=== PATIENT | female | born 1950 | race Caucasian/White ===

== ENCOUNTER → 2017-12-21 | Outpatient (CLI) | payer MEDICARE ==
--- NOTE | 2017-12-21 10:47 | XR ---
EXAMINATION TYPE: XR chest 2V DATE OF EXAM: 12/21/2017 HISTORY: ACUTE BRONCHOSPASM. REFERENCE: Previous study dated 01/26/2015. FINDINGS: Lung volumes are prominent. Heart size is normal. Pleural spaces are clear. There are subtl e interstitial changes which appear chronic. IMPRESSION: 1. COPD. 2. 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
== END | disposition home or self-care (01) ==
LOC: RADXRMAIN 09:56
PROVIDERS: ATTEND Physician Assistant
DX: J44.9 Chronic obstructive pulmonary disease, unspecified (principal)
CPT/HCPCS: 71046

== ENCOUNTER 2024-04-25 20:49 | Inpatient (IN) | payer MEDICARE, OTHER ==
--- NOTE | 2024-04-25 20:56 | ED ---
SOB HPI - History of Present Illness MD Complaint: shortness of breath Onset/Timin -: days(s) Consistency: constant Improves With: nothing Worsens With: exertion Associated Symptoms: cough Treatments Prior to Arrival: none - Related Data Home Oxygen Therapy: No <Preston Mar - Last Filed: 04/26/24 07:14> <Evaristo Morton - Last Filed: 05/02/24 22:08> - General Stated Complaint: [place] Time Seen by Provider: 04/25/24 20:55 - History of Present Illness Initial Comments: Patient is 73-year-old woman who presents to have evaluation of shortness of breath that has been getting progressively worse over the past 2 days. The patient does admit to smoking "too much." She does not take any medication and is not aware if she has COPD. The patient not aware of fever or not. She is having a little bit of nonproductive cough. She states the breathing gets worse if she is exerting herself. Patient denies chest pain. She has not noticed leg swelling. No change in urination or bowel movements. (Preston Mar) - Related Data Home Medications Medication Instructions Recorded Confirmed Losartan Potassium [Cozaar] 100 mg PO DAILY 04/26/24 04/26/24 Allergies Allergy/AdvReac Type Severity Reaction Status Date / Time codeine AdvReac AGITATION Verified 04/26/24 09:23 Review of Systems ROS Other: All systems not noted in ROS Statement are negative. Constitutional: Reports: weakness. Denies: fever, chills Respiratory: Reports: cough, dyspnea. Denies: hemoptysis Cardiovascular: Reports: dyspnea on exertion. Denies: chest pain, palpitations, orthopnea, edema, syncope Gastrointestinal: Denies: abdominal pain, nausea, vomiting, melena, hematochezia Genitourinary: Denies: dysuria, hematuria Musculoskeletal: Denies: back pain Skin: Denies: rash Neurological: Denies: headache, weakness <Preston Mar - Last Filed: 04/26/24 07:14> ROS Other: All systems not noted in ROS Statement are negative. <Evaristo Morton - Last Filed: 05/02/24 22:08> ROS Statement: Those systems with pertinent positive or pertinent negative responses have been documented in the HPI. Past Medical History Past Medical History: No Reported History History of Any Multi-Drug Resistant Organisms: None Reported Past Surgical History: Appendectomy, Orthopedic Surgery, Tubal Ligation Additional Past Surgical History / Comment(s): RIGHT KNEE Past Anesthesia/Blood Transfusion Reactions: No Reported Reaction Past Psychological History: No Psychological Hx Reported Past Alcohol Use History: None Reported Past Drug Use History: None Reported - Past Family History Mother Additional Family Medical History / Comment(s): stomach ulcers <Evaristo Morton - Last Filed: 05/02/24 22:08> General Exam General appearance: alert Head exam: Present: atraumatic, normocephalic Eye exam: Present: normal appearance. Absent: scleral icterus, conjunctival injection ENT exam: Present: normal oropharynx Neck exam: Present: normal inspection Respiratory exam: Present: respiratory distress, wheezes, decreased breath sounds. Absent: normal lung sounds bilaterally, rales, rhonchi, stridor, accessory muscle use Cardiovascular Exam: Present: regular rate, normal rhythm, normal heart sounds. Absent: systolic murmur, diastolic murmur, rubs, gallop GI/Abdominal exam: Present: soft. Absent: distended, tenderness, guarding, rebound, rigid, mass Extremities exam: Present: normal inspection, normal capillary refill. Absent: pedal edema, calf tenderness Back exam: Present: normal inspection. Absent: CVA tenderness (R), CVA tenderness (L) Neurological exam: Present: alert Skin exam: Present: warm, dry, intact, normal color. Absent: rash <Preston Mar - Last Filed: 04/26/24 07:14> Course Vital Signs 04/25/24 04/25/24 04/25/24 20:50 20:58 21:03 Temperature 98.2 F Pulse Rate 115 H Respiratory 20 22 Rate Blood Pressure 194/78 O2 Sat by Pulse 60 L 94 L Oximetry 04/25/24 04/25/24 04/25/24 21:07 21:17 21:27 Temperature Pulse Rate 92 77 Respiratory 18 Rate Blood Pressure 107/87 O2 Sat by Pulse 94 L 86 L Oximetry 04/25/24 04/25/24 04/26/24 21:35 22:57 00:02 Temperature Pulse Rate 88 93 82 Respiratory 18 18 Rate Blood Pressure 137/67 154/92 O2 Sat by Pulse 94 L 97 Oximetry 04/26/24 04/26/2404/26/25 00:53 03:00 06:00 Temperature Pulse Rate 88 75 92 Respiratory 20 18 18 Rate Blood Pressure 160/89 137/73 137/73 O2 Sat by Pulse 95 95 90 L Oximetry 04/26/24 04/26/24 04/26/24 07:43 08:03 08:07 Temperature 98.0 F Pulse Rate 85 Respiratory 20 18 Rate Blood Pressure 153/87 O2 Sat by Pulse 88 L 92 L Oximetry 04/26/24 04/26/24 04/26/24 08:17 08:32 10:00 Temperature Pulse Rate 86 86 80 Respiratory 18 Rate Blood Pressure 155/70 O2 Sat by Pulse 90 L Oximetry 04/26/24 04/26/24 04/26/24 11:28 11:37 11:50 Temperature Pulse Rate 80 84 86 Respiratory 18 Rate Blood Pressure 149/62 O2 Sat by Pulse 88 L Oximetry 04/26/24 04/26/24 04/26/24 13:00 14:59 16:10 Temperature Pulse Rate 81 80 Respiratory 18 Rate Blood Pressure 145/70 O2 Sat by Pulse 92 L 93 L Oximetry 04/26/24 04/26/24 04/26/24 16:11 16:20 18:17 Temperature Pulse Rate 79 80 84 Respiratory 20 18 Rate Blood Pressure 151/57 152/93 O2 Sat by Pulse 95 96 Oximetry 04/26/24 19:32 Temperature 98.9 F Pulse Rate 90 Respiratory 20 Rate Blood Pressure 152/93 O2 Sat by Pulse 98 Oximetry Medical Decision Making - Lab Data Result diagrams: 04/26/24 05:15 04/25/24 21:02 - EKG Data -: EKG Interpreted by [place] EKG shows normal: sinus rhythm, axis ([place] deviation), intervals (Right bundle branch block), QRS complexes (Possible old septal infarct based on Q waves V1 V2) Rate: normal (96 bpm) <Preston Mar - Last Filed: 04/26/24 07:14> - Lab Data Result diagrams: 05/02/24 06:08 05/02/24 06:08 <Evaristo Morton - Last Filed: 05/02/24 22:08> - Medical Decision Making Patient is 73-year-old woman with history of COPD presenting with exacerbation of COPD most likely due to influenza infection. The patient also with mild e levation of troponin possible NSTEMI. Patient is admitted to have further treatment for COPD As well as pulmonology and cardiology consultation. (Preston Mar) - Lab Data Lab Results 04/25/24 04/25/24 04/25/24 Range/Units 21:02 21:02 21:02 WBC 10.3 (3.8-10.6) k/uL RBC 5.45 H (3.80-5.40) m/uL Hgb 16.6 H (11.4-16.0) gm/dL Hct 52.1 H (34.0-46.0) % MCV 95.5 (80.0-100.0) fL MCH 30.4 (25.0-35.0) pg MCHC 31.8 (31.0-37.0) g/dL RDW 14.3 (11.5-15.5) % Plt Count 175 (150-450) k/uL MPV 8.5 Neutrophils % (Manual) 83 % Band Neuts % (Manual) 6 % Lymphocytes % (Manual) 3 % Monocytes % (Manual) 8 % Neutrophils # (Manual) 9.10 H (1.3-7.7) k/uL Lymphocytes # (Manual) 0.31 L (1.0-4.8) k/uL Monocytes # (Manual) 0.82 (0-1.0) k/uL Nucleated RBCs 0 (0-0) /100 WBC Manual Slide Review Performed RBC Morphology Normal PT 10.7 (10.0-12.5) sec INR 1.0 (<1.2) APTT 23.6 (22.0-30.0) sec Sodium 137 (137-145) mmol/L Potassium 5.0 (3.5-5.1) mmol/L Chloride 99 (98-107) mmol/L Carbon Dioxide 28 (22-30) mmol/L Anion Gap 10 mmol/L BUN 15 (7-17) mg/dL Creatinine 0.71 (0.52-1.04) mg/dL Est GFR (CKD-EPI)AfAm >90 (>60 ml/min/1.73 sqM) Est GFR (CKD-EPI)NonAf 85 (>60 ml/min/1.73 sqM) Glucose 197 H (74-99) mg/dL Lactic Ac Sepsis Rflx Plasma Lactic Acid Charan (0.7-2.0) mmol/L Calcium 9.1 (8.4-10.2) mg/dL Magnesium 2.0 (1.6-2.3) mg/dL Total Bilirubin 0.7 (0.2-1.3) mg/dL AST 22 (14-36) U/L ALT 17 (4-34) U/L Alkaline Phosphatase 91 (38-126) U/L Troponin I (0.000-0.034) ng/mL NT-Pro-B Natriuret Pep 1810 pg/mL Total Protein 7.4 (6.3-8.2) g/dL Albumin 4.0 (3.5-5.0) g/dL Influenza Type A (PCR) (Not Detectd) Influenza Type B (PCR) (Not Detectd) RSV (PCR) (Not Detectd) SARS-CoV-2 (PCR) (Not Detectd) 04/25/24 04/25/24 04/25/24 Range/Units 21:02 21:02 21:18 WBC (3.8-10.6) k/uL RBC (3.80-5.40) m/uL Hgb (11.4-16.0) gm/dL Hct (34.0-46.0) % MCV (80.0-100.0) fL MCH (25.0-35.0) pg MCHC (31.0-37.0) g/dL RDW (11.5-15.5) % Plt Count (150-450) k/uL MPV Neutrophils % (Manual) % Band Neuts % (Manual) % Lymphocytes % (Manual) % Monocytes % (Manual) % Neutrophils # (Manual) (1.3-7.7) k/uL Lymphocytes # (Manual) (1.0-4.8) k/uL Monocytes # (Manual) (0-1.0) k/uL Nucleated RBCs (0-0) /100 WBC Manual Slide Review RBC Morphology PT (10.0-12.5) sec INR (<1.2) APTT (22.0-30.0) sec Sodium (137-145) mmol/L Potassium (3.5-5.1) mmol/L Chloride (98-107) mmol/L Carbon Dioxide (22-30) mmol/L Anion Gap mmol/L BUN (7-17) mg/dL Creatinine (0.52-1.04) mg/dL Est GFR (CKD-EPI)AfAm (>60 ml/min/1.73 sqM) Est GFR (CKD-EPI)NonAf (>60 ml/min/1.73 sqM) Glucose (74-99) mg/dL Lactic Ac Sepsis Rflx Plasma Lactic Acid Charan 3.0 H* (0.7-2.0) mmol/L Calcium (8.4-10.2) mg/dL Magnesium (1.6-2.3) mg/dL Total Bilirubin (0.2-1.3) mg/dL AST (14-36) U/L ALT (4-34) U/L Alkaline Phosphatase (38-126) U/L Troponin I 0.222 H* (0.000-0.034) ng/mL NT-Pro-B Natriuret Pep pg/mL Total Protein (6.3-8.2) g/dL Albumin (3.5-5.0) g/dL Influenza Type A (PCR) Detected A (Not Detectd) Influenza Type B (PCR) Not Detected (Not Detectd) RSV (PCR) Not Detected (Not Detectd) SARS-CoV-2 (PCR) Not Detected (Not Detectd) 04/25/24 04/25/24 Range/Units 22:11 23:10 WBC (3.8-10.6) k/uL RBC (3.80-5.40) m/uL Hgb (11.4-16.0) gm/dL Hct (34.0-46.0) % MCV (80.0-100.0) fL MCH (25.0-35.0) pg MCHC (31.0-37.0) g/dL RDW (11.5-15.5) % Plt Count (150-450) k/uL MPV Neutrophils % (Manual) % Band Neuts % (Manual) % Lymphocytes % (Manual) % Monocytes % (Manual) % Neutrophils # (Manual) (1.3-7.7) k/uL Lymphocytes # (Manual) (1.0-4.8) k/uL Monocytes # (Manual) (0-1.0) k/uL Nucleated RBCs (0-0) /100 WBC Manual Slide Review RBC Morphology PT (10.0-12.5) sec INR (<1.2) APTT (22.0-30.0) sec Sodium (137-145) mmol/L Potassium (3.5-5.1) mmol/L Chloride (98-107) mmol/L Carbon Dioxide (22-30) mmol/L Anion Gap mmol/L BUN (7-17) mg/dL Creatinine (0.52-1.04) mg/dL Est GFR (CKD-EPI)AfAm (>60 ml/min/1.73 sqM) Est GFR (CKD-EPI)NonAf (>60 ml/min/1.73 sqM) Glucose (74-99) mg/dL Lactic Ac Sepsis Rflx Y Plasma Lactic Acid Charan (0.7-2.0) mmol/L Calcium (8.4-10.2) mg/dL Magnesium (1.6-2.3) mg/dL Total Bilirubin (0.2-1.3) mg/dL AST (14-36) U/L ALT (4-34) U/L Alkaline Phosphatase (38-126) U/L Troponin I 0.262 H* (0.000-0.034) ng/mL NT-Pro-B Natriuret Pep pg/mL Total Protein (6.3-8.2) g/dL Albumin (3.5-5.0) g/dL Influenza Type A (PCR) (Not Detectd) Influenza Type B (PCR) (Not Detectd) RSV (PCR) (Not Detectd) SARS-CoV-2 (PCR) (Not Detectd) Disposition <Preston Mar - Last Filed: 04/26/24 07:14> Is patient prescribed a controlled substance at d/c from ED?: No Time of Disposition: 23:15 <Evaristo Morton - Last Filed: 05/02/24 22:08> Clinical Impression: Acute exacerbation of chronic obstructive pulmonary disease (COPD), Influenza A, NSTEMI (non-ST elevated myocardial infarction) Disposition: ADMITTED IP TO THIS HOSP Condition: Fair
[2024-04-25] MEDS: IPRATROPIUM-ALBUTEROL 3 ML NEB INHALATION STA (21:23)
[2024-04-25] MEDS: ALBUTEROL NEBULIZED 2.5 MG/3 ML INHALATION STA (21:23)
--- NOTE | 2024-04-25 21:27 | XR ---
EXAMINATION TYPE: XR chest 1V portable DATE OF EXAM: 04/25/2024 9:15 PM COMPARISON: Previous chest radiograph dated 12/21/2017. CLINICAL INDICATION: Female, 73 years old with history of sob; [facility] TECHNIQUE: XR chest 1V portable Frontal view of the chest. FINDINGS: Lungs/Pleura: There is no evidence of pleural effusion, focal consolidation, or pneumothorax. Pulmonary vascularity: Unremarkable. Heart/mediastinum: Cardiomediastinal silhouette is unremarkable. Musculoskeletal: No acute osseous pathology. Other findings: None IMPRESSION: No acute cardiopulmonary disease/process. [facility], , 04/25/2024 9:25 PM
[2024-04-25 21:31] LABS: Partial Thromboplastin Time 23.6 sec (22.0-30.0); Prothrombin Time 10.7 sec (10.0-12.5)
[2024-04-25 21:38] LABS: HCT 52.1 % (34.0-46.0); HGB 16.6 gm/dL (11.4-16.0); MCH 30.4 pg (25.0-35.0); MCHC 31.8 g/dL (31.0-37.0); MCV 95.5 fL (80.0-100.0); Mean Platelet Volume 8.5; Platelet Count 175 k/uL (150-450); RBC 5.45 m/uL (3.80-5.40); RDW 14.3 % (11.5-15.5); WBC 10.3 k/uL (3.8-10.6)
[2024-04-25 21:44] LABS: ALT 17 U/L (4-34); African American GFR (CKD) >90 (>60 ml/min/1.73 sqM); Anion Gap 10 mmol/L; Blood Urea Nitrogen 15 mg/dL (7-17); Calcium 9.1 mg/dL (8.4-10.2); Carbon Dioxide 28 mmol/L (22-30); Chloride 99 mmol/L (98-107); Glucose 197 mg/dL (74-99); Non-African American GFR(CKD) 85 (>60 ml/min/1.73 sqM); Sodium 137 mmol/L (137-145); Total Bilirubin 0.7 mg/dL (0.2-1.3); Total Protein 7.4 g/dL (6.3-8.2)
[2024-04-25 21:53] LABS: NT-Pro-B-Type Natriuretic Pept 1810 pg/mL
[2024-04-25 22:10] LABS: Influenza A Detected (Not Detectd); Influenza B Not Detected (Not Detectd); RSV Not Detected (Not Detectd)
[2024-04-25 22:10] LABS: AST 22 U/L (14-36); Alkaline Phosphatase 91 U/L (38-126)
[2024-04-25 22:45] LABS: Band Neutrophils % 6 %; Lymphocytes # (M) 0.31 k/uL (1.0-4.8); Monocytes # (M) 0.82 k/uL (0-1.0); Neutrophils % (M) 83 %; Nucleated Red Blood Cells 0 /100 WBC (0-0); Total Cells Counted 100
[2024-04-25 22:46] LABS: RBC Morphology Normal
[2024-04-25] MEDS: predniSONE 20 MG TAB PO STA (22:53)
[2024-04-25] MEDS ORDERED: NALOXONE 0.4 MG/ML 1 ML VIAL IVP PRN (23:15)
[2024-04-25] MEDS ORDERED: HEPARIN SODIUM 1,000 UN/ML (10ML VL) IV PRN (23:17)
[2024-04-25] MEDS: HEPARIN SOD,PORK IN 0.45% NACL 25,000 UNIT in 0.45% NACL 1 250ML.BAG IV SCH (23:29)
[2024-04-25] MEDS: HEPARIN SODIUM 1,000 UN/ML (10ML VL) IV ONE (23:32)
[2024-04-25] MEDS: cefTRIAXone IN SWFI 1,000 MG/10 ML SYRINGE IVP STA (23:36)
[2024-04-25] MEDS: OSELTAMIVIR 75 MG CAP PO SCH (23:38)
[2024-04-25] MEDS: SODIUM CHLORIDE 0.9% 1,000 ML IV STA (23:40)
[2024-04-25] MEDS: ASPIRIN 81 MG PO STA (23:44)
[2024-04-25] MEDS: SODIUM CHLORIDE 0.9% 1,200 ML IV ONE (23:44)
[2024-04-25] MEDS: AZITHROMYCIN 500 MG TAB PO SCH (23:46)
[2024-04-26 06:05] LABS: Basophils % (A) 0 %; Eosinophils % (A) 0 %; HCT 47.4 % (34.0-46.0); HGB 14.9 gm/dL (11.4-16.0); Hypochromasia Slight; Lymphocytes # (A) 0.3 k/uL (1.0-4.8); Lymphocytes % (A) 4 %; MCH 30.3 pg (25.0-35.0); MCHC 31.4 g/dL (31.0-37.0); MCV 96.4 fL (80.0-100.0); Mean Platelet Volume 7.8; Monocytes # (A) 0.4 k/uL (0-1.0); Monocytes % (A) 5 %; Neutrophils # (A) 6.8 k/uL (1.3-7.7); Neutrophils % (A) 86 %; Platelet Count 140 k/uL (150-450); RBC 4.91 m/uL (3.80-5.40); RDW 13.7 % (11.5-15.5); WBC 7.9 k/uL (3.8-10.6)
[2024-04-26 06:28] LABS: Prothrombin Time 11.1 sec (10.0-12.5)
[2024-04-26] MEDS: IPRATROPIUM-ALBUTEROL 3 ML NEB INHALATION SCH (08:07)
[2024-04-26] MEDS: ASPIRIN 81 MG PO SCH (08:34)
[2024-04-26] MEDS: predniSONE 20 MG TAB PO SCH (08:35)
[2024-04-26] MEDS: LOSARTAN 50 MG TAB PO SCH (10:45)
--- NOTE | 2024-04-26 14:07 | P.CNPUL ---
History of Present Illness Consult date: 04/26/24 Requesting physician: Mahamed Nascimento Reason for consult: dyspnea, hypoxemia Chief complaint: Shortness of breath, cough, congestion History of present illness: This is a pleasant 73-year-old female patient with a known history of hypertension and chronic obstructive pulmonary disease, chronic and ongoing tobacco dependence of greater than 40 years who presented to the emergency room last evening with a 2 to 3-day history of increasing shortness of breath, cough and congestion. She was found to be hypoxemic and placed on 6 L high flow nasal cannula. Chest x-ray showed no acute pulmonary process. White count 7.9. Hemoglobin 14.9. Platelets 140. INR 1.0. D-dimer 0.56. Sodium 137. Pot assium 5.0. Bicarb 28. BUN 15. Creatinine 0.71. Troponin 0.222, 0.262. Procalcitonin negative at 0.10. Viral screen is positive for influenza A. She was initiated on a heparin drip. She is seen today in consultation in the emergency department. She is currently sitting up on a stretcher. Awake and alert in no acute distress. She does have a dry nonproductive cough. Her main complaint is that of fatigue today. She is remains hypoxic now requiring 12 L high flow nasal cannula to maintain O2 saturation in the low 90s. Review of Systems REVIEW OF SYSTEMS: CONSTITUTIONAL: Positive for fatigue. Denies any recent significant weight loss or weight gain. EYES: Denies change in vision. EARS, NOSE, MOUTH, THROAT: Denies headaches, denies sore throat. CARDIOVASCULAR: Denies chest pain, palpitations or syncopal episodes. RESPIRATORY: Positive for shortness of breath, cough, congestion no hemoptysis. GASTROINTESTINAL: Denies change in appetite, denies abdominal pain GENITOURINARY: Denies hematuria, denies infections. MUSKULOSKELETAL: Denies pain, denies swelling. INTEGUMENTARY: Denies rash, denies eczema. NEUROLOGICAL: Denies recent memory loss, no recent seizure activity. PSYCHIATRIC: Denies anxiety, denies depression. HEMATOLOGIC/LYMPHATIC: Denies anemia, denies enlarged lymph nodes. Past Medical History Past Medical History: No Reported History History of Any Multi-Drug Resistant Organisms: None Reported Past Surgical History: Appendectomy, Orthopedic Surgery, Tubal Ligation Additional Past Surgical History / Comment(s): RIGHT KNEE Past Anesthesia/Blood Transfusion Reactions: No Reported Reaction Past Psychological History: No Psychological Hx Reported Past Alcohol Use History: None Reported Past Drug Use History: None Reported - Past Family History Mother Additional Family Medical History / Comment(s): stomach ulcers Medications and Allergies Home Medications Medication Instructions Recorded Confirmed Type Losartan Potassium [Cozaar] 100 mg PO DAILY 04/26/24 04/26/24 History Allergies Allergy/AdvReac Type Severity Reaction Status Date / Time codeine AdvReac AGITATION Verified 04/26/24 09:23 Physical Exam Vitals: Vital Signs Temp Pulse Resp BP Pulse Ox 04/26/24 11:50 86 18 149/62 88 L 04/26/24 11:37 84 04/26/24 11:28 80 04/26/24 10:00 80 18 155/70 90 L 04/26/24 08:32 86 04/26/24 08:17 86 04/26/24 08:07 92 L 04/26/24 08:03 98.0 F 85 18 153/87 88 L 04/26/24 07:43 20 04/26/24 06:00 92 18 137/73 90 L 04/26/24 03:00 75 18 137/73 95 04/26/24 00:53 88 20 160/89 95 04/26/24 00:02 82 18 154/92 97 04/25/24 22:57 93 18 137/67 94 L 04/25/24 21:35 88 04/25/24 21:27 77 04/25/24 21:17 86 L 04/25/24 21:07 92 18 107/87 94 L 04/25/24 21:03 22 04/25/24 20:58 94 L 04/25/24 20:50 98.2 F 115 H 20 194/78 60 L Intake and Output 04/25/24 04/26/24 04/26/24 22:59 06:59 14:59 Other: Weight 86.183 kg GENERAL EXAM: Alert, does not, weak 73-year-old female, on 12 L high flow nasal cannula, fairly comfortable in no apparent distress. HEAD: Normocephalic. EYES: Normal reaction of pupils, equal size. NOSE: Clear with pink turbinates. THROAT: No erythema or exudates. NECK: No masses, no JVD. CHEST: No chest wall deformity. LUNGS: Equal air entry with bilateral end expiratory wheeze, diminished. CVS: S1 and S2 normal with no audible murmur, regular rhythm. ABDOMEN: No hepatosplenomegaly, normal bowel sounds, no guarding or rigidity. SPINE: No scoliosis or deformity SKIN: No rashes CENTRAL NERVOUS SYSTEM: No focal deficits, tone is normal in all 4 extremities. EXTREMITIES: There is no peripheral edema. No clubbing, no cyanosis. Peripheral pulses are intact. Results - Laboratory Findings CBC and BMP: 04/26/24 05:15 04/25/24 21:02 PT/INR, D-dimer PT 11.1 sec (10.0-12.5) 04/26/24 05:15 INR 1.0 (<1.2) 04/26/24 05:15 D-Dimer 0.56 mg/L FEU (<0.60) 04/26/24 11:03 Abnormal lab findings: Abnormal Labs 04/25/24 04/25/24 04/25/24 21:02 21:02 21:02 RBC 5.45 H Hgb 16.6 H Hct 52.1 H Plt Count Neutrophils # (Manual) 9.10 H Lymphocytes # Lymphocytes # (Manual) 0.31 L APTT Glucose 197 H Plasma Lactic Acid Charan 3.0 H* Troponin I C-Reactive Protein Influenza Type A (PCR) 04/25/24 04/25/24 04/25/24 21:02 21:18 23:10 RBC Hgb Hct Plt Count Neutrophils # (Manual) Lymphocytes # Lymphocytes # (Manual) APTT Glucose Plasma Lactic Acid Charan Troponin I 0.222 H* 0.262 H* C-Reactive Protein Influenza Type A (PCR) Detected A 04/26/24 04/26/24 04/26/24 00:50 05:15 05:15 RBC Hgb Hct 47.4 H Plt Count 140 L Neutrophils # (Manual) Lymphocytes # 0.3 L Lymphocytes # (Manual) APTT 44.2 H Glucose Plasma Lactic Acid Charan 2.1 H* Troponin I C-Reactive Protein Influenza Type A (PCR) 04/26/24 11:03 RBC Hgb Hct Plt Count Neutrophils # (Manual) Lymphocytes # Lymphocytes # (Manual) APTT Glucose Plasma Lactic Acid Charan Troponin I C-Reactive Protein 6.1 H Influenza Type A (PCR) - Diagnostic Findings Chest x-ray: image reviewed Assessment and Plan Assessment: Acute hypoxic respiratory failure secondary to an acute exacerbation of chronic obstructive pulmonary disease complicated by influenza A. Procalcitonin negative. D-dimer negative Acute influenza A infection Troponin leak, currently on a heparin drip Chronic and ongoing tobacco dependence of greater than 40 years Chronic obstructive pulmonary disease, not on treatment in the outpatient setting Hypertension Plan: The patient was seen and evaluated Chest x-ray, labs and medications reviewed Initiated on DuoNeb inhalations, Symbicort Continue on prednisone Continue on Tamiflu Currently on a heparin drip Echocardiogram pending Titrate down the FiO2 as tolerated We will continue to follow and make further recommendations based on her clinical status I have personally seen and examined the patient, performed the documentation and the assessment and plan as written. Number of minutes spent on the visit: 20 Dictation was produced using [employer] dictation software. Please excuse any grammatical, word or spelling errors.
--- NOTE | 2024-04-26 14:22 | P.HPIM ---
History of Present Illness H&P Date: 04/26/24 History of present illness; patient 73-year-old lady with past medical history significant for hypertension who presented to the ER because of shortness of breath. Patient stated that she has been feeling short of breath the last 2 days. Shortness of breath is present on rest as well exertion. Patient states she feels as if she cannot take deep breaths. There is no complaint of fever or chills. Patient is complaining of cough. Patient denies any sick contacts. Patient denies any chest pain. There is no complaint of orthopnea or PND. Patient denies any swelling of feet. Because of the symptoms, patient presented the ER Initial lab work done in the ER showed WBC 10.3, hemoglobin 16.6, platelet count 175, sodium 137, potassium 5, chloride 99, carbon 28, anion gap 10, BUN 15, creatinine 0.7, lactate 3, troponin 0.2-2, proBNP 1810 Influenza A detected Influenza B not detected RSV not detected COVID-19 not detected EKG done in the ER showed heart rate of 96, no ST segment elevation or depression seen, no T-wave inversions seen. Chest x-ray done in the ER showed no acute cardiopulmonary process Patient admitted to internal medicine service REVIEW OF SYSTEMS: CONSTITUTIONAL: No fever, no malaise, no fatigue. HEENT: No recent visual problems or hearing problems. Denied any sore throat. CARDIOVASCULAR: As mentioned above PULMONARY: As mentioned above GASTROINTESTINAL: No diarrhea, no nausea, no vomiting, no abdominal pain. NEUROLOGICAL: No headaches, no weakness, no numbness. HEMATOLOGICAL: Denies any bleeding or petechiae. GENITOURINARY: Denies any burning micturition, frequency, or urgency. MUSCULOSKELETAL/RHEUMATOLOGICAL: Denies any joint pain, swelling, or any muscle pain. ENDOCRINE: Denies any polyuria or polydipsia. The rest of the 14-point review of systems is negative. PHYSICAL EXAMINATION: GENERAL: The patient is alert and oriented x3, not in any acute distress. Well developed, well nourished. HEENT: Pupils are round and equally reacting to light. EOMI. No scleral icterus. No conjunctival pallor. Normocephalic, atraumatic. No pharyngeal erythema. No thyromegaly. CARDIOVASCULAR: S1 and S2 present. No murmurs, rubs, or gallops. PULMONARY: Coarse breath sounds bilaterally, no wheezing or crackles. ABDOMEN: Soft, nontender, nondistended, normoactive bowel sounds. No palpable organomegaly. MUSCULOSKELETAL: No joint swelling or deformity. EXTREMITIES: No cyanosis, clubbing, or pedal edema. NEUROLOGICAL: Gross neurological examination did not reveal any focal deficits. SKIN: No rashes. Assessment and plan Acute hypoxic respiratory failure Acute influenza infection Acute COPD observation Elevated troponin Viral sepsis Tobacco addiction Monitor vital signs Monitor CBC Monitor CMP Continue telemetry monitoring Ordered serial troponin Ordered D-dimer Ordered CRP, ESR Ordered serial troponin Ordered 2D echo Ordered Tamiflu Ordered prednisone Ordered breathing treatments Start pharmacy dose heparin Consult cardiology Consult pulmonary Labs and medication were reviewed.. Continue same treatment. Continue with symptomatic treatment. Resume home medication. Monitor labs and vitals. DVT and GI prophylaxis. Further recommendations as per clinical course of the patient Dictation was produced using [employer] dictation software. please excuse any grammatical, word or spelling errors. Past Medical History Past Medical History: No Reported History History of Any Multi-Drug Resistant Organisms: None Reported Past Surgical History: Appendectomy, Orthopedic Surgery, Tubal Ligation Additional Past Surgical History / Comment(s): RIGHT KNEE Past Anesthesia/Blood Transfusion Reactions: No Reported Reaction Past Psychological History: No Psychological Hx Reported Past Alcohol Use History: None Reported Past Drug Use History: None Reported - Past Family History Mother Additional Family Medical History / Comment(s): stomach ulcers Medications and Allergies Home Medications Medication Instructions Recorded Confirmed Type Losartan Potassium [Cozaar] 100 mg PO DAILY 04/26/24 04/26/24 History Allergies Allergy/AdvReac Type Severity Reaction Status Date / Time codeine AdvReac AGITATION Verified 04/26/24 09:23 Physical Exam Vitals: Vital Signs Temp Pulse Resp BP Pulse Ox 04/26/24 08:32 86 04/26/24 08:17 86 04/26/24 08:07 92 L 04/26/24 08:03 98.0 F 85 18 153/87 88 L 04/26/24 07:43 20 04/26/24 06:00 92 18 137/73 90 L 04/26/24 03:00 75 18 137/73 95 04/26/24 00:53 88 20 160/89 95 04/26/24 00:02 82 18 154/92 97 04/25/24 22:57 93 18 137/67 94 L 02/08/25 21:35 88 04/25/24 21:27 77 04/25/24 21:17 86 L 04/25/24 21:07 92 18 107/87 94 L 04/25/24 21:03 22 04/25/24 20:58 94 L 04/25/24 20:50 98.2 F 115 H 20 194/78 60 L Intake and Output 04/25/24 04/26/24 04/26/24 22:59 06:59 14:59 Other: Weight 86.183 kg Results CBC & Chem 7: 04/26/24 05:15 04/25/24 21:02 Labs: Abnormal Lab Results - Last 24 Hours (Table) 04/25/24 04/25/24 04/25/24 Range/Units 21:02 21:02 21:02 RBC 5.45 H (3.80-5.40) m/uL Hgb 16.6 H (11.4-16.0) gm/dL Hct 52.1 H (34.0-46.0) % Plt Count (150-450) k/uL Neutrophils # (Manual) 9.10 H (1.3-7.7) k/uL Lymphocytes # (1.0-4.8) k/uL Lymphocytes # (Manual) 0.31 L (1.0-4.8) k/uL APTT (22.0-30.0) sec Glucose 197 H (74-99) mg/dL Plasma Lactic Acid Charan 3.0 H* (0.7-2.0) mmol/L Troponin I (0.000-0.034) ng/mL Influenza Type A (PCR) (Not Detectd) 04/25/24 04/25/24 04/25/24 Range/Units 21:02 21:18 23:10 RBC (3.80-5.40) m/uL Hgb (11.4-16.0) gm/dL Hct (34.0-46.0) % Plt Count (150-450) k/uL Neutrophils # (Manual) (1.3-7.7) k/uL Lymphocytes # (1.0-4.8) k/uL Lymphocytes # (Manual) (1.0-4.8) k/uL APTT (22.0-30.0) sec Glucose (74-99) mg/dL Plasma Lactic Acid Charan (0.7-2.0) mmol/L Troponin I 0.222 H* 0.262 H* (0.000-0.034) ng/mL Influenza Type A (PCR) Detected A (Not Detectd) 04/26/24 04/26/24 04/26/24 Range/Units 00:50 05:15 05:15 RBC (3.80-5.40) m/uL Hgb (11.4-16.0) gm/dL Hct 47.4 H (34.0-46.0) % Plt Count 140 L (150-450) k/uL Neutrophils # (Manual) (1.3-7.7) k/uL Lymphocytes # 0.3 L (1.0-4.8) k/uL Lymphocytes # (Manual) (1.0-4.8) k/uL APTT 44.2 H (22.0-30.0) sec Glucose (74-99) mg/dL Plasma Lactic Acid Charan 2.1 H* (0.7-2.0) mmol/L Troponin I (0.000-0.034) ng/mL Influenza Type A (PCR) (Not Detectd)
--- NOTE | 2024-04-26 18:17 | P.CRDCN ---
History of Present Illness Consult date: 04/26/24 History of present illness: The patient is a 73-year-old female patient with a past medical history significant for overweight as well as hypertension and dyslipidemia and smoking and COPD presented to the hospital complaining of increasing shortness of breath associated with congestion. For the last few days she has been experiencing progressive exertional dyspnea associated with the feeling of congestions with no fever or chills but also she has been experiencing cough with no sputum. No symptoms of chest pain or chest discomfort. She underwent further evaluation including testing for influenza A and that came in to be abnormal. We consulted to see the patient because of abnormal troponin. The EKG showed sinus mechanism with RBBB and diffuse nonspecific ST and T wave abnormalities. The chest x-ray did not show any acute abnormalities. NT proBNP came in to be around only 1800. No history of CAD or heart failure or cardiac arrhythmia and the patient does not follow-up with any support service tech on regular basis. The physical examination is remarkable for regular rhythm with a distant heart sounds and bilateral rhonchi are noted also on examination with no edema was noted in the lower extremities Assessment Influenza A infection Evidence of myocardial injury with no evidence of ischemia Significant history of smoking COPD Hypertension and dyslipidemia and overweight Plan Agree about keeping the patient on the current dose of heparin IV Add aspirin and statin and beta-jihan Further risk stratification including an echocardiogram with Doppler Also severe CAD as an etiology for the abnormalities in the troponin need to be ruled out Follow-up with the patient Past Medical History Past Medical History: No Reported History History of Any Multi-Drug Resistant Organisms: None Reported Past Surgical History: Appendectomy, Orthopedic Surgery, Tubal Ligation Additional Past Surgical History / Comment(s): RIGHT KNEE Past Anesthesia/Blood Transfusion Reactions: No Reported Reaction Past Psychological History: No Psychological Hx Reported Past Alcohol Use History: None Reported Past Drug Use History: None Reported - Past Family History Mother Additional Family Medical History / Comment(s): stomach ulcers Medications and Allergies Home Medications Medication Instructions Recorded Confirmed Type Losartan Potassium [Cozaar] 100 mg PO DAILY 04/26/24 04/26/24 History Allergies Allergy/AdvReac Type Severity Reaction Status Date / Time codeine AdvReac AGITATION Verified 04/26/24 09:23 Physical Exam Vitals: Vital Signs Temp Pulse Resp BP Pulse Ox 04/26/24 16:20 80 04/26/24 16:11 79 20 151/57 95 04/26/24 16:10 80 04/26/24 14:59 81 18 145/70 93 L 04/26/24 13:00 92 L 04/26/24 11:50 86 18 149/62 88 L 04/26/24 11:37 84 04/26/24 11:28 80 04/26/24 10:00 80 18 155/70 90 L 04/26/24 08:32 86 04/26/24 08:17 86 04/26/24 08:07 92 L 04/26/24 08:03 98.0 F 85 18 153/87 88 L 04/26/24 07:43 20 04/26/24 06:00 92 18 137/73 90 L 04/26/24 03:00 75 18 137/73 95 04/26/24 00:53 88 20 160/89 95 04/26/24 00:02 82 18 154/92 97 04/25/24 22:57 93 18 137/67 94 L 04/25/24 21:35 88 04/25/24 21:27 77 04/25/24 21:17 86 L 04/25/24 21:07 92 18 107/87 94 L 04/25/24 21:03 22 04/25/24 20:58 94 L 04/25/24 20:50 98.2 F 115 H 20 194/78 60 L Results 04/26/24 05:15 04/25/24 21:02 Cardiac Enzymes 04/25/24 04/25/24 04/25/24 Range/Units 21:02 21:02 23:10 AST 22 (14-36) U/L Troponin I 0.222 H* 0.262 H* (0.000-0.034) ng/mL Coagulation 04/25/24 04/26/24 04/26/24 Range/Units 21:02 05:15 05:15 PT 10.7 11.1 (10.0-12.5) sec APTT 23.6 44.2 H (22.0-30.0) sec CBC 04/25/24 04/26/24 Range/Units 21:02 05:15 WBC 10.3 7.9 (3.8-10.6) k/uL RBC 5.45 H 4.91 (3.80-5.40) m/uL Hgb 16.6 H 14.9 (11.4-16.0) gm/dL Hct 52.1 H 47.4 H (34.0-46.0) % Plt Count 175 140 L (150-450) k/uL Comprehensive Metabolic Panel 04/25/24 Range/Units 21:02 Sodium 137 (137-145) mmol/L Potassium 5.0 (3.5-5.1) mmol/L Chloride 99 (98-107) mmol/L Carbon Dioxide 28 (22-30) mmol/L BUN 15 (7-17) mg/dL Creatinine 0.71 (0.52-1.04) mg/dL Glucose 197 H (74-99) mg/dL Calcium 9.1 (8.4-10.2) mg/dL AST 22 (14-36) U/L ALT 17 (4-34) U/L Alkaline Phosphatase 91 (38-126) U/L Total Protein 7.4 (6.3-8.2) g/dL Albumin 4.0 (3.5-5.0) g/dL Current Medications Generic Name Dose Route Start Last Admin Trade Name Freq PRN Reason Stop Dose Admin Albuterol/Ipratropium 3 ml 04/26/24 08:00 04/26/24 16:09 Ipratropium-Albuterol 3 Ml Neb INHALATION 3 ml RT-QID VEE Administration Aspirin 81 mg 04/26/24 09:00 04/26/24 08:34 Aspirin 81 Mg PO 81 mg DAILY VEE Administration Aspirin 81 mg 04/27/24 09:00 Aspirin 81 Mg PO DAILY VEE Atorvastatin Calcium 80 mg 04/26/24 21:00 Atorvastatin 80 Mg Tab PO HS VEE Azithromycin 500 mg 04/25/24 23:30 04/26/24 08:34 Azithromycin 500 Mg Tab PO 04/28/24 23:29 500 mg DAILY VEE Administration Protocol Budesonide/Formoterol Fumarate 2 puff 04/26/24 20:00 Symbicort 160-4.5 Mcg Inhaler INHALATION RT-BID VEE Heparin Sodium (Porcine) 0 unit 04/25/24 23:17 Heparin Sodium 1,000 Un/Ml (10ml Vl) IV PER PROTOCOL PRN Low PTT Protocol Heparin Sodium/Sodium Chloride 250 mls @ 10 mls/hr 04/25/24 23:30 04/25/24 23:29 25,000 unit/ Sodium Chloride IV 11.603 units/kg/hr .Q24H VEE 10 mls/hr Administration Protocol 11.603 UNITS/KG/HR Losartan Potassium 100 mg 04/26/24 11:00 04/26/24 10:45 Losartan 50 Mg Tab PO 100 mg DAILY VEE Administration Naloxone HCl 0.2 mg 04/25/24 23:15 Naloxone 0.4 Mg/Ml 1 Ml Vial IVP Q2M PRN Opioid Reversal Oseltamivir Phosphate 75 mg 04/25/24 23:00 04/26/24 08:35 Oseltamivir 75 Mg Cap PO 04/30/24 09:01 75 mg Q12HR VEE Administration Protocol Prednisone 40 mg 04/26/24 09:00 04/26/24 08:35 Prednisone 20 Mg Tab PO 04/30/24 09:01 40 mg DAILY VEE Administration 04/26/24 05:15 04/25/24 21:02
[2024-04-26] MEDS: ATORVASTATIN 80 MG TAB PO SCH (20:25)
[2024-04-26] MEDS: SYMBICORT 160-4.5 MCG INHALER INHALATION SCH (20:34)
[2024-04-27] MEDS: DILTIAZEM 125 MG in SODIUM CHLORIDE 0.9% 100 ML IV SCH (00:01)
--- NOTE | 2024-04-27 06:20 | XR ---
EXAMINATION TYPE: XR chest 1V portable DATE OF EXAM: 04/27/2024 CLINICAL HISTORY: Difficulty breathing progress study. Increased oxygen demand. TECHNIQUE: Single AP portable semiupright view of the chest is obtained. COMPARISON: Chest x-ray from 2 days earlier FINDINGS: Some chronic parenchymal changes bilaterally remains present. No new suspicious focal airs pace opacity, pleural effusion, or pneumothorax is seen. Cardiac silhouette size stable and upper salgado its of normal. Osseous structures are intact. Overlying EKG leads are redemonstrated. IMPRESSION: No acute pulmonary process. No significant change from most recent study. [facility], , 04/27/2024 6:17 AM
[2024-04-27 06:30] LABS: HCT 46.5 % (34.0-46.0); HGB 14.5 gm/dL (11.4-16.0); Hypochromasia Moderate; MCH 30.2 pg (25.0-35.0); MCHC 31.2 g/dL (31.0-37.0); Mean Platelet Volume 8.3; Platelet Count 142 k/uL (150-450); RBC 4.79 m/uL (3.80-5.40); RDW 13.9 % (11.5-15.5); WBC 10.9 k/uL (3.8-10.6)
[2024-04-27 06:50] LABS: ALT 36 U/L (4-34); AST 47 U/L (14-36); African American GFR (CKD) >90 (>60 ml/min/1.73 sqM); Albumin 3.2 g/dL (3.5-5.0); Alkaline Phosphatase 72 U/L (38-126); Anion Gap 3 mmol/L; Blood Urea Nitrogen 22 mg/dL (7-17); Calcium 8.6 mg/dL (8.4-10.2); Carbon Dioxide 32 mmol/L (22-30); Chloride 99 mmol/L (98-107); Glucose 92 mg/dL (74-99); Non-African American GFR(CKD) 84 (>60 ml/min/1.73 sqM); Potassium 4.8 mmol/L (3.5-5.1); Sodium 134 mmol/L (137-145); Total Bilirubin 0.5 mg/dL (0.2-1.3); Total Protein 6.1 g/dL (6.3-8.2)
[2024-04-27 08:02] LABS: Lymphocytes # (M) 0.65 k/uL (1.0-4.8); Monocytes # (M) 0.87 k/uL (0-1.0); Neutrophils # (M) 9.37 k/uL (1.3-7.7); Neutrophils % (M) 86 %; Nucleated Red Blood Cells 0 /100 WBC (0-0); Total Cells Counted 100
[2024-04-27 08:03] LABS: RBC Morphology Normal
[2024-04-27] MEDS: ASPIRIN 81 MG PO SCH (08:11)
[2024-04-27] MEDS: METOPROLOL SUCCINATE (ER) 25 MG TAB.ER.24H PO SCH ×2 (08:11→16:14)
[2024-04-27] MEDS: ACETAMINOPHEN TAB 325 MG TAB PO PRN (08:28)
--- NOTE | 2024-04-27 14:07 | P.PN ---
Subjective Progress Note Date: 04/27/24 The patient is a 73-year-old female patient with a past medical history significant for overweight as well as hypertension and dyslipidemia and smoking and COPD presented to the hospital complaining of increasing shortness of breath associated with congestion. For the last few days she has been experiencing progressive exertional dyspnea associated with the feeling of congestions with no fever or chills but also she has been experiencing cough with no sputum. No symptoms of chest pain or chest discomfort. She underwent further evaluation including testing for influenza A and that came in to be abnormal. We consulted to see the patient because of abnormal troponin. The EKG showed sinus mechanism with RBBB and diffuse nonspecific ST and T wave abnormalities. The chest x-ray did not show any acute abnormalities. NT proBNP came in to be around only 1800. No history of CAD or heart failure or cardiac arrhythmia and the patient does not follow-up with any saturator on regular basis. The physical examination is remarkable for regular rhythm with a distant heart sounds and bilateral rh onchi are noted also on examination with no edema was noted in the lower extremities April 27, 2024 Patient is seen and examined at bedside this a.m. Patient is noticed to be in atrial fibrillation with RVR Subjectively she reports that she is feeling weak and tired. She is also having some shortness of breath On exam Irregularly irregular pulse, distant heart sounds. Bilateral rhonchi and crackles audible in lung chapman No swelling about the lower extremity Normal JVP No focal neurological deficits Assessment Atrial fibrillation with RVR Influenza A infection NSTEMI type II Significant history of smoking COPD Right bundle branch block Hypertension and dyslipidemia and overweight Plan Continue IV heparin drip Increase metoprolol 25 mg twice daily. Continue IV Cardizem drip Pending echocardiogram results we will make further recommendations Obtain TSH, lipid, HbA1c, magnesium level Objective - Vital Signs Vital signs: Vital Signs Temp 97.8 F 04/27/24 11:20 Pulse 110 H 04/27/24 12:02 Resp 28 H 04/27/24 11:20 BP 101/67 04/27/24 11:20 Pulse Ox 97 04/27/24 11:46 FiO2 60 04/27/24 11:46 Intake & Output 04/26/24 04/27/24 04/27/24 18:59 06:59 18:59 Intake Total 280.167 51.5 Output Total 300 Balance -19.833 51.5 Weight 62 kg Intake: Intake, IV Titration 280.167 51.5 Amount Diltiazem 125 mg In 30.167 Sodium Chloride 0.9% 100 ml @ 10 MG/HR 10 mls/hr IV .[id number] VEE Rx#: [id number] Heparin Sod,Pork in 0.45% 250 51.5 NaCl 25,000 unit In 0.45 % NaCl 1 250ml.bag @ 11. 603 UNITS/KG/HR 10 mls/hr IV .Q24H VEE Rx#: [id number] Output: Urine 300 Other: Voiding Method Bedside Commode Bedside Commode # Voids 1 - Labs CBC & Chem 7: 04/27/24 05:36 04/27/24 05:36 Labs: Abnormal Lab Results - Last 24 Hours (Table) 04/27/24 04/27/24 04/27/24 Range/Units 05:36 05:36 05:36 WBC 10.9 H (3.8-10.6) k/uL Hct 46.5 H (34.0-46.0) % Plt Count 142 L (150-450) k/uL Neutrophils # (Manual) 9.37 H (1.3-7.7) k/uL Lymphocytes # (Manual) 0.65 L (1.0-4.8) k/uL APTT 53.6 H (22.0-30.0) sec Sodium 134 L (137-145) mmol/L Carbon Dioxide 32 H (22-30) mmol/L BUN 22 H (7-17) mg/dL AST 47 H (14-36) U/L ALT 36 H (4-34) U/L Total Protein 6.1 L (6.3-8.2) g/dL Albumin 3.2 L (3.5-5.0) g/dL
[2024-04-27 14:32] LABS: Magnesium 2.2 mg/dL (1.6-2.3)
--- NOTE | 2024-04-27 14:42 | P.PN ---
Subjective Progress Note Date: 04/27/24 Principal diagnosis: COPD exacerbation, influenza A infection. This is a pleasant 73-year-old female patient with a known history of hypertension and chronic obstructive pulmonary disease, chronic and ongoing tobacco dependence of greater than 40 years who presented to the emergency room last evening with a 2 to 3-day history of increasing shortness of breath, cough and congestion. She was found to be hypoxemic and placed on 6 L high flow nasal cannula. Chest x-ray showed no acute pulmonary process. White count 7.9. Hemoglobin 14.9. Platelets 140. INR 1.0. D-dimer 0.56. Sodium 137. Potassium 5.0. Bicarb 28. BUN 15. Creatinine 0.71. Troponin 0.222, 0.262. Procalcitonin negative at 0.10. Viral screen is positive for influenza A. She was initiated on a heparin drip. She is seen today in consultation in the emergency department. She is currently sitting up on a stretcher. Awake and alert in no acute distress. She does have a dry nonproductive cough. Her main complaint is that of fatigue today. She is remains hypoxic now requiring 12 L high flow nasal cannula to maintain O2 saturation in the low 90s. Progress note dated April 27, 2024. 73-year-old female who was seen in consultation yesterday. Please see the note above. The patient is seen today in room 372. She continues on Airvo, with settings of 60 L/min, and FiO2 of 60%. She is getting saline at 5 cc an hour, and Cardizem drip at 5 mg an hour. She also continues on IV heparin. She apparently took her AIRVO device off, and her saturations on room air are only 84%. They did recover, once Airvo was placed back on the patient. Current labs include a white count of 10.9, hemoglobin 14.5, hematocrit 46.5, and a platelet count of 142,000. PTT is 53.6. Sodium 134, potassium 4.8, chlorides 99, CO2 32, BUN 22, creatinine 0.72. AST was 47. ALT is 36. Procalcitonin level was 0.10 and repeat was 0.07. Chest x-ray shows no acute pulmonary process. Objective - Vital Signs Vital signs: Vital Signs Temp 97.8 F 04/27/24 11:20 Pulse 110 H 04/27/24 12:02 Resp 28 H 04/27/24 11:20 BP 101/67 04/27/24 11:20 Pulse Ox 97 04/27/24 11:46 FiO2 60 04/27/24 11:46 Intake & Output 04/26/24 04/27/24 04/27/24 18:59 06:59 18:59 Intake Total 280.167 51.5 Output Total 300 Balance -19.833 51.5 Weight 62 kg Intake: Intake, IV Titration 280.167 51.5 Amount Diltiazem 125 mg In 30.167 Sodium Chloride 0.9% 100 ml @ 10 MG/HR 10 mls/hr IV .[id number] VEE Rx#: [id number] Heparin Sod,Pork in 0.45% 250 51.5 NaCl 25,000 unit In 0.45 % NaCl 1 250ml.bag @ 11. 603 UNITS/KG/HR 10 mls/hr IV .Q24H VEE Rx#: [id number] Output: Urine 300 Other: Voiding Method Bedside Commode Bedside Commode # Voids 1 - Exam No acute distress, oriented 3. Airvo cannula in place. HEENT examination is grossly unremarkable. Mucous membranes are moist. No oral lesions. Neck supple. Full range of motion. No adenopathy thyromegaly or neck vein distention. Cardiovascular examination reveals regular rhythm rate. S1-S2 normal. No S3 or S4. No discernible murmur noted. Heart sounds are distant. Lungs reveal bilateral expiratory wheezes and rhonchi. No crackles. Breath sounds are equal bilaterally. Abdomen soft bowel sounds are heard. No masses or tenderness. Extremities are intact. No cyanosis clubbing or edema. Skin is without rash or lesion. Neurologic examination is brief but nonfocal. - Labs CBC & Chem 7: 04/27/24 05:36 04/27/24 05:36 Labs: Abnormal Lab Results - Last 24 Hours (Table) 04/27/24 04/27/24 04/27/24 Range/Units 05:36 05:36 05:36 WBC 10.9 H (3.8-10.6) k/uL Hct 46.5 H (34.0-46.0) % Plt Count 142 L (150-450) k/uL Neutrophils # (Manual) 9.37 H (1.3-7.7) k/uL Lymphocytes # (Manual) 0.65 L (1.0-4.8) k/uL APTT 53.6 H (22.0-30.0) sec Sodium 134 L (137-145) mmol/L Carbon Dioxide 32 H (22-30) mmol/L BUN 22 H (7-17) mg/dL AST 47 H (14-36) U/L ALT 36 H (4-34) U/L Total Protein 6.1 L (6.3-8.2) g/dL Albumin 3.2 L (3.5-5.0) g/dL Assessment and Plan Assessment: Acute hypoxic respiratory failure secondary to an acute exacerbation of chronic obstructive pulmonary disease complicated by influenza A. Acute influenza A infection. Troponin leak, currently on a heparin drip. Chronic and ongoing tobacco dependence of greater than 40 years. Chronic obstructive pulmonary disease, not on treatment in the outpatient setting. Hypertension. Plan: Plan dated April 27, 2024. The patient is seen today in room 372. She is currently on Airvo, with settings of 60 L/min, and FiO2 of 60%. The patient is also receiving saline at 5 cc an hour, a Cardizem drip at 5 mg an hour, and IV heparin, with monitoring of her PTT. She took her Airvo cannula off, and her saturations dropped down to 84%. All labs, x-rays, and medications are reviewed. The patient continues on appropriate bronchodilators, prednisone, and Tamiflu. We will continue to follow make recommendations along the way. A total of 50 minutes was spent on this patient, in the process of interviewing her, examining her, and reviewing pertinent laboratory data, x-rays, and medications. In addition, we discussed the diagnosis, treatments, and prognosis of this patient with the nursing staff, and the patient themselves. Time with Patient: Greater than 30
[2024-04-27 16:27] LABS: Glucose,Whole Blood 161 mg/dL (70-110)
--- NOTE | 2024-04-27 17:08 | CT ---
EXAMINATION TYPE: CODE STROKE: CT brain wo contr DATE OF EXAM: 04/27/2024 4:57 PM COMPARISON: None. CLINICAL INDICATION: Female, 73 years old with history of Neuro deficit, acute, stroke suspected, no speech. CODE STROKE TECHNIQUE: Brain: Axial CT images of the brain were obtained with coronal and sagittal reformats created and rev iewed. Contrast used: None. Oral contrast used: None. CT DLP: 1188.6 mGycm, Automated exposure control for dose reduction was used. FINDINGS: Brain: Extra-axial spaces: No abnormal extra-axial fluid collections. Ventricular system: Within normal limits Cerebral parenchyma: No acute intraparenchymal hemorrhage or mass effect. The gardner-white junction is well differentiated. Cerebellum: Unremarkable. Mass effect: No evidence of midline shift. Intracranial vasculature: Atherosclerotic calcifications of the intracranial vessels. Soft tissues: Normal. Calvarium/osseous structures: No depressed skull fracture. Paranasal sinuses and mastoid air cells: Mild scattered paranasal sinus disease. Visualized orbits: Orbital contents are intact. IMPRESSION: No acute intracranial process. [facility], , 04/27/2024 5:05 PM
[2024-04-27 17:36] LABS: HCT 45.7 % (34.0-46.0); HGB 14.2 gm/dL (11.4-16.0); Hypochromasia Marked; MCH 30.4 pg (25.0-35.0); MCV 98.2 fL (80.0-100.0); Platelet Count 132 k/uL (150-450); RBC 4.66 m/uL (3.80-5.40); RDW 13.7 % (11.5-15.5); WBC 7.1 k/uL (3.8-10.6)
--- NOTE | 2024-04-27 17:43 | CT ---
EXAMINATION TYPE: CODE STROKE: CTA head neck DATE OF EXAM: 04/27/2024 5:24 PM COMPARISON: CT brain same day.. CLINICAL INDICATION: Female, 73 years old with history of Neuro deficit, acute, stroke suspected; PHH , no speech. CODE STROKE TECHNIQUE: Axially acquired helical CT angiogram of the head and neck was obtained with contrast. Axi al images are supplemented with 3D reconstructions and MIP images which were post-processed at an in dependent workstation. NASCET criteria used. Contrast used:65ml mL of Isovue 300 with IV Contrast, Oral contrast used: None. CT DLP: 478.4 mGycm, Automated exposure control for dose reduction was used. FINDINGS: CTA HEAD: No evidence of acute intracranial hemorrhage, mass effect, or midline shift. The ventricles, sulci, a nd cisterns are unremarkable. Vertebral arteries: The vertebral arteries are patent. Diminutive left vertebral artery intracranial portion. Normal caliber right. Vertebral artery dominance: Right Basilar artery: The basilar artery is intact. The basilar artery bifurcation is normal. Internal Carotid arteries: The cervical, petrous, cavernous and supraclinoid segments are normal. LC: Patent with no evidence of aneurysm. ACOM: Present without evidence of aneurysm. MCA: Patent with no evidence of aneurysm. BLEACHER SULFITE PULP: Patent with no evidence of aneurysm. PCOM: Hypoplastic bilaterally. Dural sinuses: Patent. CTA NECK: Right Carotid System: The common carotid and external carotid arteries are patent. There is less than 25% stenosis at the c arotid bifurcation secondary to calcified plaque. The rest of the internal carotid artery is patent. Left Carotid System: The common carotid and external carotid arteries are patent. There is less than 25% stenosis at the c arotid bifurcation secondary to calcified plaque. The rest of the internal carotid artery is patent. Vertebral arteries are patent without evidence hemodynamically significant stenosis. Scattered calcif ications the high-grade stenosis in the cervical segments. There is a three-vessel aortic arch. The origins of the great vessels are patent. No evidence of hemo dynamically significant stenosis. Upper thorax: IMPRESSION: 1. No evidence of dissection of the cervical internal carotid arteries or vertebral arteries. 2. No any evidence of significant stenosis at the carotid bifurcations. 3. No evidence of intracranial high-grade stenosis or intracranial aneurysm. 4. Right dominant vertebral artery system with diminutive left vertebral artery involving the intrac ranial portion [facility]: [id number], 04/27/2024 5:41 PM
[2024-04-27 17:45] LABS: INR 0.9 (<1.2)
[2024-04-27 17:46] LABS: Partial Thromboplastin Time 65.7 sec (22.0-30.0); Prothrombin Time 10.2 sec (10.0-12.5)
[2024-04-27 18:06] LABS: ALT 34 U/L (4-34); AST 36 U/L (14-36); African American GFR (CKD) >90 (>60 ml/min/1.73 sqM); Albumin 3.1 g/dL (3.5-5.0); Alkaline Phosphatase 67 U/L (38-126); Anion Gap 5 mmol/L; Blood Urea Nitrogen 32 mg/dL (7-17); Calcium 8.4 mg/dL (8.4-10.2); Carbon Dioxide 29 mmol/L (22-30); Chloride 97 mmol/L (98-107); Glucose 150 mg/dL (74-99); Non-African American GFR(CKD) 79 (>60 ml/min/1.73 sqM); Potassium 5.1 mmol/L (3.5-5.1); Sodium 131 mmol/L (137-145); Total Bilirubin 0.4 mg/dL (0.2-1.3); Total Protein 5.9 g/dL (6.3-8.2)
[2024-04-27 18:09] LABS: Large Platelets Present; Monocytes # (M) 0.14 k/uL (0-1.0); Neutrophils # (M) 6.46 k/uL (1.3-7.7); Neutrophils % (M) 91 %; Nucleated Red Blood Cells 0 /100 WBC (0-0); Total Cells Counted 100
--- NOTE | 2024-04-27 18:32 | CA ---
Transthoracic Echo Report Name: Yaquelin Gross Age: 73 Gender: F : 1950 Exam Date: 04/27/2024 14:44 Exam Location: [facility] Ht (in): 65 Wt (lb): 190 Ordering Physician: Jaden Helton MD Attending/Referring Phys: Escrow Officer Mindi Hoyos RDCS Procedure CPT: Indications: SHORTNESS OF BREATH Cardiac Hx: Technical Quality: Fair Contrast 1: Total Dose (mL): Contrast 2: Total Dose (mL): MEASUREMENTS (Male / Female) Normal Values 2D ECHO LV Diastolic Diameter PLAX 4.4 cm 4.2 - 5.9 / 3.9 - 5.3 cm LV Systolic Diameter PLAX 2.9 cm IVS Diastolic Thickness 1.1 cm 0.6 - 1.0 / 0.6 - 0.9 cm LVPW Diastolic Thickness 1.4 cm 0.6 - 1.0 / 0.6 - 0.9 cm LV Relative Wall Thickness 0.6 LVOT Diameter 2.2 cm LV Diastolic Volume MOD BP 82.7 cm??? 67 - 155 / 56 - 104 cm??? LV Systolic Volume MOD BP 31.3 cm??? 22 - 58 / 19 - 49 cm??? LV Ejection Fraction MOD BP 62.2 % >= 55 % LV Cardiac Index MOD BP 2545.8 cm???/min???m??? LV Diastolic Volume MOD 4C 85.2 cm??? LV Systolic Volume MOD 4C 28.9 cm??? LV Ejection Fraction MOD 4C 66.1 % LV Cardiac Index MOD 4C 2789.4 cm???/min???m??? LV Diastolic Length 4C 7.2 cm LV Systolic Length 4C 5.9 cm LV Diastolic Volume MOD 2C 77.7 cm??? LV Systolic Volume MOD 2C 32.3 cm??? LV Ejection Fraction MOD 2C 58.5 % LV Cardiac Index MOD 2C 2251.4 cm???/min???m??? LV Diastolic Length 2C 7.5 cm LV Systolic Length 2C 6.2 cm LA Volume 60.6 cm??? 18 - 58 / 22 - 52 cm??? LA Volume Index 30.0 cm???/m??? 16 - 28 cm???/m??? DOPPLER AV Peak Velocity 132.3 cm/s AV Peak Gradient 7.0 mmHg AV Mean Velocity 93.2 cm/s AV Mean Gradient 3.8 mmHg AV Velocity Time Integral 21.9 cm LVOT Peak Velocity 104.1 cm/s LVOT Peak Gradient 4.3 mmHg LVOT Velocity Time Integral 17.1 cm LVOT Stroke Volume 63.6 cm??? LVOT Stroke Volume Index 32.8 ml/m??? LVOT Cardiac Index 3150.2 cm???/min???m??? AV Area Cont Eq vti 2.9 cm??? AV Area Cont Eq pk 2.9 cm??? MV Peak Velocity 101.3 cm/s MV Peak Gradient 4.1 mmHg MV Mean Velocity 63.1 cm/s MV Mean Gradient 2.0 mmHg MV Velocity Time Integral 12.9 cm TR Peak Velocity 233.5 cm/s TR Peak Gradient 21.8 mmHg Right Atrial Pressure 15.0 mmHg Pulmonary Artery Systolic Pressu 36.8 mmHg Right Ventricular Systolic Press 36.8 mmHg FINDINGS Left Ventricle Left ventricular ejection fraction is estimated at 60 %. Mildly increased septal wall thickness. Moderately increased posterior wall thickness. Left ventricular cavity size normal. No obvious regional wall motion abnormalities. Right Ventricle Normal right ventricular size. Mildly reduced right ventricular global systolic function. Mild pulmonary hypertension. Right Atrium Normal right atrial size. Left Atrium Mildly increased left atrial volume. Mitral Valve Structurally normal mitral valve. No mitral stenosis, regurgitation or prolapse. Aortic Valve Trileaflet aortic valve. No aortic valve stenosis or regurgitation. Tricuspid Valve Structurally normal tricuspid valve. No tricuspid stenosis. Mild tricuspid regurgitation. Pulmonic Valve Pulmonic valve not well visualized. Pericardium No pericardial effusion. Aorta Aortic annulus normal. Ascending aorta not well visualized. CONCLUSIONS Diagnosis abnormal troponins and shortness of breath Mild LVH with preserved systolic function Prominent posterior pericardial stripe Previewed by: Dr. Justin Bhardwaj MD (Electronically Signed) Final Date: 27 April 2024 18:31
--- NOTE | 2024-04-27 20:15 | P.PN ---
Subjective Progress Note Date: 04/27/24 This is a 73-year-old white female who was admitted for acute respiratory failure with influenza A. She is currently on Airvo high flow oxygen and apparently went into atrial fibrillation last night. She remains on Cardizem drip this morning. She is still on consultation by cardiology and pulmonary cri tical care. She she complains of weakness and fatigue with shortness of breath but she denies any fever. She was assessed for anxiety and she states she has some irritability but anxiety is controlled. Objective - Vital Signs Vital signs: Vital Signs Temp 98 F 04/27/24 16:29 Pulse 107 H 04/27/24 16:29 Resp 24 04/27/24 16:29 BP 95/55 04/27/24 16:29 Pulse Ox 96 04/27/24 16:29 FiO2 55 04/27/24 16:36 Intake & Output 04/27/24 04/27/24 04/28/24 06:59 18:59 06:59 Intake Total 280.167 866.333 Output Total 300 Balance -19.833 866.333 Weight 62 kg Intake: Intake, IV Titration 280.167 146.333 Amount Diltiazem 125 mg In 30.167 94.833 Sodium Chloride 0.9% 100 ml @ 10 MG/HR 10 mls/hr IV .[id number] VEE Rx#: [id number] Heparin Sod,Pork in 0.45% 250 51.5 NaCl 25,000 unit In 0.45 % NaCl 1 250ml.bag @ 11. 603 UNITS/KG/HR 10 mls/hr IV .Q24H VEE Rx#: [id number] Oral 720 Output: Urine 300 Other: Voiding Method Bedside Commode Bedside Commode # Voids 1 2 - Exam GENERAL: This is a 73-year-old female. Pleasant and cooperative. HEENT: Head is atraumatic, normocephalic. Pupils are equal, round, and reactive to light. Sclerae anicteric. Conjunctivae are clear. Mucus membranes of the mouth are moist. Neck is supple. RESPIRATORY: Diminished breath sounds bilaterally with poor air exchange currently on high flow oxygen CARDIOVASCULAR: Irregular rate and rhythm. GASTROINTESTINAL: No distention noted. Abdomen soft and round. Normal active bowel sounds auscultated x 4 quadrants. No pain or tenderness noted upon palpation. INTEGUMENTARY: No cyanosis. No jaundice. No rashes noted. No cellulitis noted. EXTREMITIES: 2+ peripheral pulses. +1 peripheral edema. No calf tenderness noted. NEUROLOGIC: Cranial nerves II-XII intact. PSYCHIATRIC: Awake, alert, and oriented X 3. Appropriate affect. Intact judgement and insight. - Labs CBC & Chem 7: 04/27/24 17:18 04/27/24 17:18 Labs: Abnormal Lab Results - Last 24 Hours (Table) 04/27/24 04/27/24 04/27/24 Range/Units 05:36 05:36 05:36 WBC 10.9 H (3.8-10.6) k/uL Hct 46.5 H (34.0-46.0) % Plt Count 142 L (150-450) k/uL Neutrophils # (Manual) 9.37 H (1.3-7.7) k/uL Lymphocytes # (Manual) 0.65 L (1.0-4.8) k/uL APTT 53.6 H (22.0-30.0) sec Sodium 134 L (137-145) mmol/L Chloride (98-107) mmol/L Carbon Dioxide 32 H (22-30) mmol/L BUN 22 H (7-17) mg/dL Glucose (74-99) mg/dL POC Glucose (mg/dL) (70-110) mg/dL Hemoglobin A1c (<=6.0) % AST 47 H (14-36) U/L ALT 36 H (4-34) U/L Total Protein 6.1 L (6.3-8.2) g/dL Albumin 3.2 L (3.5-5.0) g/dL 04/27/24 04/27/24 04/27/24 Range/Units 05:36 16:25 17:18 WBC (3.8-10.6) k/uL Hct (34.0-46.0) % Plt Count 132 L (150-450) k/uL Neutrophils # (Manual) (1.3-7.7) k/uL Lymphocytes # (Manual) 0.50 L (1.0-4.8) k/uL APTT (22.0-30.0) sec Sodium (137-145) mmol/L Chloride (98-107) mmol/L Carbon Dioxide (22-30) mmol/L BUN (7-17) mg/dL Glucose (74-99) mg/dL POC Glucose (mg/dL) 161 H (70-110) mg/dL Hemoglobin A1c 6.1 H (<=6.0) % AST (14-36) U/L ALT (4-34) U/L Total Protein (6.3-8.2) g/dL Albumin (3.5-5.0) g/dL 04/27/24 04/27/24 Range/Units 17:18 17:18 WBC (3.8-10.6) k/uL Hct (34.0-46.0) % Plt Count (150-450) k/uL Neutrophils # (Manual) (1.3-7.7) k/uL Lymphocytes # (Manual) (1.0-4.8) k/uL APTT 65.7 H (22.0-30.0) sec Sodium 131 L (137-145) mmol/L Chloride 97 L (98-107) mmol/L Carbon Dioxide (22-30) mmol/L BUN 32 H (7-17) mg/dL Glucose 150 H (74-99) mg/dL POC Glucose (mg/dL) (70-110) mg/dL Hemoglobin A1c (<=6.0) % AST (14-36) U/L ALT (4-34) U/L Total Protein 5.9 L (6.3-8.2) g/dL Albumin 3.1 L (3.5-5.0) g/dL Assessment and Plan (1) Afib Current Visit: Yes Status: Acute Code(s): I48.91 - UNSPECIFIED ATRIAL FIBRILLATION SNOMED Code(s): 93521300 (2) Acute exacerbation of chronic obstructive pulmonary disease (COPD) Current Visit: Yes Status: Acute Code(s): J44.1 - CHRONIC OBSTRUCTIVE PULMONARY DISEASE W (ACUTE) EXACERBATION SNOMED Code(s): 272482057 (3) Influenza A Current Visit: Yes Status: Acute Code(s): J10.1 - FLU DUE TO OTH IDENT INFLUENZA VIRUS W OTH RESP MANIFEST SNOMED Code(s): 736416877 (4) NSTEMI (non-ST elevated myocardial infarction) Current Visit: Yes Status: Acute Code(s): I21.4 - NON-ST ELEVATION (NSTEMI) MYOCARDIAL INFARCTION SNOMED Code(s): 26811509 Plan: Patient was placed on Cardizem drip she is still consultation by cardiology and pulmonary will continue pulmonary support with high flow oxygen
[2024-04-27 20:55] LABS: Chol/HDL Ratio 2.47 Ratio; LDL Cholesterol,Calculated 66.8 mg/dL (0.0-131.0)
[2024-04-28 08:18] LABS: Glucose,Whole Blood 138 mg/dL (70-110)
[2024-04-28 08:39] LABS: ABG HCO3 35 mmol/L (21-25); ABG Oxygen Saturation 98.1 % (94-97); ABG PH 7.25 (7.35-7.45); ABG PO2 101 mmHg (83-108); ABG TCO2 38 mmol/L (19-24); Allen Test Performed? Yes
[2024-04-28 09:04] LABS: HGB 14.1 gm/dL (11.4-16.0); Hypochromasia Marked; MCHC 30.1 g/dL (31.0-37.0); MCV 99.7 fL (80.0-100.0); Mean Platelet Volume 8.1; Platelet Count 122 k/uL (150-450); RBC 4.71 m/uL (3.80-5.40); RDW 13.7 % (11.5-15.5); WBC 7.4 k/uL (3.8-10.6)
[2024-04-28 09:06] LABS: ABG PCO2 81 mmHg (35-45)
[2024-04-28 09:20] LABS: ALT 31 U/L (4-34); AST 29 U/L (14-36); African American GFR (CKD) 90 (>60 ml/min/1.73 sqM); Albumin 3.2 g/dL (3.5-5.0); Alkaline Phosphatase 58 U/L (38-126); Anion Gap 3 mmol/L; Blood Urea Nitrogen 31 mg/dL (7-17); Calcium 8.8 mg/dL (8.4-10.2); Carbon Dioxide 33 mmol/L (22-30); Chloride 101 mmol/L (98-107); Glucose 130 mg/dL (74-99); Non-African American GFR(CKD) 78 (>60 ml/min/1.73 sqM); Potassium 5.2 mmol/L (3.5-5.1); Sodium 137 mmol/L (137-145); Total Bilirubin 0.4 mg/dL (0.2-1.3); Total Protein 6.1 g/dL (6.3-8.2)
--- NOTE | 2024-04-28 09:21 | XR ---
EXAMINATION TYPE: XR chest 1V portable DATE OF EXAM: 04/28/2024 CLINICAL HISTORY: Difficulty breathing progress study. TECHNIQUE: Single AP portable upright view of the chest is obtained. COMPARISON: Chest x-ray from one day earlier FINDINGS: Some chronic parenchymal changes bilaterally remains present. No new suspicious focal airs pace opacity, pleural effusion, or pneumothorax is seen. Cardiomegaly remains present. Osseous struct ures are intact. Overlying EKG leads are redemonstrated. IMPRESSION: No acute pulmonary process. No significant change from most recent study. [facility], , 04/28/2024 9:18 AM
[2024-04-28] MEDS: PANTOPRAZOLE 40 MG TABLET PO SCH (11:06)
--- NOTE | 2024-04-28 12:51 | P.PN ---
Subjective Progress Note Date: 04/28/24 The patient is a 73-year-old female patient with a past medical history significant for overweight as well as hypertension and dyslipidemia and smoking and COPD presented to the hospital complaining of increasing shortness of breath associated with congestion. For the last few days she has been experiencing progressive exertional dyspnea associated with the feeling of congestions with no fever or chills but also she has been experiencing cough with no sputum. No symptoms of chest pain or chest discomfort. She underwent further evaluation including testing for influenza A and that came in to be abnormal. We consulted to see the patient because of abnormal troponin. The EKG showed sinus mechanism with RBBB and diffuse nonspecific ST and T wave abnormalities. The chest x-ray did not show any acute abnormalities. NT proBNP came in to be around only 1800. 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 The physical examination is remarkable for regular rhythm with a distant heart sounds and bilateral r honchi are noted also on examination with no edema was noted in the lower extremities April 27, 2024 Patient is seen and examined at bedside this a.m. Patient is noticed to be in atrial fibrillation with RVR Subjectively she reports that she is feeling weak and tired. She is also having some shortness of breath 04/28 Patient seen and examined. A-Team was called this morning for respiratory f ailure. Patient also was noted to have black stools yesterday and heparin drip was discontinued. Telemetry is sinus rhythm with a right bundle branch block. Patient had converted from A-fib to sinus rhythm last evening at 7 PM. Patient is not currently on Cardizem drip. We will order lab work and Protonix due to the black stools. Further workup will have to be addressed by the attending. Blood pressure 119/76, heart rate 76, pulse ox 91% on BiPAP. Patient remains in isolation for influenza A. TSH 1.12. Triglycerides 103, cholesterol 147, LDL 66. Magnesium 2.3. Echocardiogram reveals mild LVH with preserved systolic function. On exam Regular pulse, distant heart sounds. Bilateral rhonchi and crackles audible in lung chapman No swelling about the lower extremity Normal JVP No focal neurological deficits Assessment Atrial fibrillation with RVR, converted to sinus rhythm Influenza A infection NSTEMI type II Significant history of smoking COPD Right bundle branch block Hypertension and dyslipidemia and overweight Black stools Plan Heparin drip had been discontinued last evening due to black stools CBC, CMP and Protonix ordered Further GI bleed workup to be performed by attending Continue metoprolol succinate 25 mg twice daily. Further recommendations as patient progresses. Nurse practitioner note has been reviewed, I agree with documented findings and plan of care. Patient was seen and examined. Objective - Vital Signs Vital signs: Vital Signs Temp 98.5 F 04/28/24 07:43 Pulse 86 04/28/24 08:09 Resp 24 04/28/24 08:09 BP 109/49 04/28/24 07:43 Pulse Ox 94 L 04/28/24 08:09 FiO2 55 04/28/24 03:13 Intake & Output 04/27/24 04/28/24 04/28/24 18:59 06:59 18:59 Intake Total 866.333 112.167 Balance 866.333 112.167 Weight 66.5 kg Intake: Intake, IV Titration 146.333 112.167 Amount Diltiazem 125 mg In 94.833 Sodium Chloride 0.9% 100 ml @ 10 MG/HR 10 mls/hr IV .[id number] VEE Rx#: [id number] Heparin Sod,Pork in 0.45% 51.5 112.167 NaCl 25,000 unit In 0.45 % NaCl 1 250ml.bag @ 11. 603 UNITS/KG/HR 10 mls/hr IV .Q24H VEE Rx#: [id number] Oral 720 Other: Voiding Method Bedside Commode Bedside Commode # Voids 2 1 - Labs CBC & Chem 7: 04/28/24 08:54 04/28/24 08:54 Labs: Abnormal Lab Results - Last 24 Hours (Table) 04/27/24 04/27/24 04/27/24 Range/Units 05:36 16:25 17:18 Plt Count 132 L (150-450) k/uL Lymphocytes # (Manual) 0.50 L (1.0-4.8) k/uL APTT (22.0-30.0) sec Sodium (137-145) mmol/L Chloride (98-107) mmol/L BUN (7-17) mg/dL Glucose (74-99) mg/dL POC Glucose (mg/dL) 161 H (70-110) mg/dL Hemoglobin A1c 6.1 H (<=6.0) % Total Protein (6.3-8.2) g/dL Albumin (3.5-5.0) g/dL Stool Occult Blood (Negative) 04/27/24 04/27/24 04/27/24 Range/Units 17:18 17:18 18:40 Plt Count (150-450) k/uL Lymphocytes # (Manual) (1.0-4.8) k/uL APTT 65.7 H (22.0-30.0) sec Sodium 131 L (137-145) mmol/L Chloride 97 L (98-107) mmol/L BUN 32 H (7-17) mg/dL Glucose 150 H (74-99) mg/dL POC Glucose (mg/dL) (70-110) mg/dL Hemoglobin A1c (<=6.0) % Total Protein 5.9 L (6.3-8.2) g/dL Albumin 3.1 L (3.5-5.0) g/dL Stool Occult Blood Positive H (Negative) 04/28/24 Range/Units 08:16 Plt Count (150-450) k/uL Lymphocytes # (Manual) (1.0-4.8) k/uL APTT (22.0-30.0) sec Sodium (137-145) mmol/L Chloride (98-107) mmol/L BUN (7-17) mg/dL Glucose (74-99) mg/dL POC Glucose (mg/dL) 138 H (70-110) mg/dL Hemoglobin A1c (<=6.0) % Total Protein (6.3-8.2) g/dL Albumin (3.5-5.0) g/dL Stool Occult Blood (Negative)
--- NOTE | 2024-04-28 13:29 | CDI ---
Documentation Clarification Form Date: 04/28/2024 01:08:22 PM From: Erica Jasso RN CCDS Phone: [phone] Admit Date: 04/25/2024 11:17:00 PM Patient Name: Yaquelin Gross Visit Number: [id number] Discharge Date: ATTENTION: The Clinical Documentation Specialists (CDI) and [facility] Coding Staff appreciate your assistance in clarifying documentation. Please respond to the clarification below the line at the bottom and electronically sign. The CDI & [facility] Coding staff will review the response and follow-up if needed. Please note: Queries are made part of the Legal Health Record. If you have any questions, please contact the author of this message via ITS. Doctor: Ra Posada Sepsis is documented , which may lack sufficient clinical evidence/support in the medical record. Additional clarification is requested. History/Risk Factors: 73 year old female presents to the ED for shortness of breath progressively getting worse. Medical history: COPD, Tobacco addiction and HTN. Clinical Indicators: VSS, 04/25; B/P 194/78, HR 115, Temp 98.2F Oral, RR 20, SpO2 60% room air CXR, 04/25: No acute cardiopulmonary disease/process Labs, 04/25: Wbc 10.3, Lactic acid: 3.0; Influenza A detected Pulmonary consult, 04/26: Patient was seen and examined today while in the ER 04/26/2024, being admitted with acute hypoxic respiratory failure secondary to acute exacerbation of COPD complicated by influenza A, her procalcitonin level is negative, patient is on Tamiflu, she has a troponin leak and she is on heparin drip, patient has been a heavy smoker over the years, and she has underlying COPD. Treatment: 04/25 Ventolin Inhalation x 1; 04/25 Duoneb Inhalation x 1; 04/26 Duoneb Inhalation QID 04/25 Rocephin IVP x 1; 04/25 Tamiflu 75mg po Q12 x 10 doses, 04/25 0.9NS 1200mls IV Bolus x1 04/26 Prednisone 40mg po daily x 5 doses After work up and study, please clarify which diagnosis is most appropriate? [X] Sepsis ruled out [ ] Sepsis treated prophylactically [ ] Sepsis is a valid diagnosis as evidence by the following: (Please add rationale): [ ] Other, please specify [ ] Unable to determine SIRS Criteria: 2 or more of the following may indicate SIRS Temperature < 96.8F (36C) or > 101.0F (38.3C) Heart Rate > 90 bpm Respiratory Rate > 20 breaths/min or PaCO2 < 32 mmHg White Blood Cell Count > 12,000 or < 4,000 cells/mm3 or > 10% bands (Template Last Reviewed: March 2023) LUCIED
--- NOTE | 2024-04-28 13:40 | CDI ---
Documentation Clarification Form Date: 04/28/2024 01:23:33 PM From: Erica Jasso RN CCDS Phone: [phone] Admit Date: 04/25/2024 11:17:00 PM Patient Name: Yaquelin Gross Visit Number: [id number] Discharge Date: ATTENTION: The Clinical Documentation Specialists (CDI) and [facility] Coding Staff appreciate your assistance in clarifying documentation. Please respond to the clarification below the line at the bottom and electronically sign. The CDI & [facility] Coding staff will review the response and follow-up if needed. Please note: Queries are made part of the Legal Health Record. If you have any questions, please contact the author of this message via ITS. Doctor: Ra Posada Acute Hypoxic Respiratory Failure is documented HP, 04/26, but is not noted in subsequent documentation. Clarification is requested. History/Risk Factors: 73 year old female presents to the ED for shortness of breath progressively getting worse. Medical history: COPD, Tobacco addiction and HTN. 04/26, HP Clinical Indicators: VSS, 04/25 20:50; B/P 194/78, HR 115, Temp 98.2F Oral, RR 20, SpO2 60% room air SpO2: 04/25 20:58: 94% 15L non rebreather; 04/25 21:17 86% 6L nasal cannula; 04/25 22:57 94% 15L non- rebreather; 04/26 08:03 88% 6L nasal cannula; 04/26 08:07 92% 12L High flow cannula CXR, 04/25: No acute cardiopulmonary disease/process ED Respiratory assessment, 04/25: Present respiratory distress, wheezes, decreased breath sounds. Pulmonary consult, 04/26: Patient was seen and examined today while in the ER 04/26/2024, being admitted with acute hypoxic respiratory failure secondary to acute exacerbation of COPD complicated by influenza A, her procalcitonin level is negative, patient is on Tamiflu, she has a troponin leak and she is on heparin drip, patient has been a heavy smoker over the years, and she has underlying COPD. Treatment: Oxygen via: non rebreather; high flow nasal cannula and nasal cannula 04/25 Ventolin Inhalation x 1; 04/25 Duoneb Inhalation x 1; 04/26 Duoneb Inhalation QID 04/25 Tamiflu 75mg po Q12 x 10 doses; 04/26 Prednisone 40mg po daily x 5 doses Please clarify if the Acute Hypoxic Respiratory Failure is: [X] Acute hypoxic respiratory failure confirmed, remains under treatment [ ] Acute hypoxic respiratory failure confirmed, resolved [ ] Other condition, please specify [ ] Unable to determine (Template Last Revised: May 2020) MTDD
--- NOTE | 2024-04-28 14:29 | P.PN ---
Subjective Progress Note Date: 04/28/24 Principal diagnosis: COPD exacerbation, influenza A infection. This is a pleasant 73-year-old female patient with a known history of hypertension and chronic obstructive pulmonary disease, chronic and ongoing tobacco dependence of greater than 40 years who presented to the emergency room last evening with a 2 to 3-day history of increasing shortness of breath, cough and congestion. She was found to be hypoxemic and placed on 6 L high flow nasal cannula. Chest x-ray showed no acute pulmonary process. White count 7.9. Hemoglobin 14.9. Platelets 140. INR 1.0. D-dimer 0.56. Sodium 137. Potassium 5.0. Bicarb 28. BUN 15. Creatinine 0.71. Troponin 0.222, 0.262. Procalcitonin negative at 0.10. Viral screen is positive for influenza A. She was initiated on a heparin drip. She is seen today in consultation in the emergency department. She is currently sitting up on a stretcher. Awake and alert in no acute distress. She does have a dry nonproductive cough. Her main complaint is that of fatigue today. She is remains hypoxic now requiring 12 L high flow nasal cannula to maintain O2 saturation in the low 90s. Progress note dated April 27, 2024. 73-year-old female who was seen in consultation yesterday. Please see the note above. The patient is seen today in room 372. She continues on Airvo, with settings of 60 L/min, and FiO2 of 60%. She is getting saline at 5 cc an hour, and Cardizem drip at 5 mg an hour. She also continues on IV heparin. She apparently took her AIRVO device off, and her saturations on room air are only 84%. They did recover, once Airvo was placed back on the patient. Current labs include a white count of 10.9, hemoglobin 14.5, hematocrit 46.5, and a platelet count of 142,000. PTT is 53.6. Sodium 134, potassium 4.8, chlorides 99, CO2 32, BUN 22, creatinine 0.72. AST was 47. ALT is 36. Procalcitonin level was 0.10 and repeat was 0.07. Chest x-ray shows no acute pulmonary process. Progress note dated April 28, 2024. 73-year-old female seen today in room 372. The patient continues on BiPAP, with settings of 14/6, and 40%. She is getting saline at 20 cc an hour. The patient did test positive for influenza. Current laboratory data includes a white count 7.4, hemoglobin 14.1, hematocrit 47, and a platelet count of 122,000. Blood gases were done and show pO2 of 101, pCO2 of 81, pH of 7.25. They were done on 55% oxygen. Sodium 137, potassium 5.2, chlorides 101, CO2 33, BUN 31, creatinine 0.76. Glucose 130. Albumin is 3.2. A chest x-ray today shows no acute pulmonary process. Objective - Vital Signs Vital signs: Vital Signs Temp 98.4 F 04/28/24 11:04 Pulse 76 04/28/24 13:01 Resp 22 04/28/24 11:04 BP 119/76 04/28/24 11:04 Pulse Ox 91 L 04/28/24 11:04 FiO2 40 04/28/24 12:38 Intake & Output 04/27/24 04/28/24 04/28/24 18:59 06:59 18:59 Intake Total 866.333 112.167 Balance 866.333 112.167 Weight 66.5 kg Intake: Intake, IV Titration 146.333 112.167 Amount Diltiazem 125 mg In 94.833 Sodium Chloride 0.9% 100 ml @ 10 MG/HR 10 mls/hr IV .[id number] [facility] Rx#: [id number] Heparin Sod,Pork in 0.45% 51.5 112.167 NaCl 25,000 unit In 0.45 % NaCl 1 250ml.bag @ 11. 603 UNITS/KG/HR 10 mls/hr IV .Q24H [facility] Rx#: [id number] Oral 720 Other: Voiding Method Bedside Commode Bedside Commode Bedside Commode # Voids 2 1 1 - Exam No acute distress, somnolent/lethargic. BiPAP mask in place. HEENT examination is grossly unremarkable. Mucous membranes are moist. No oral lesions. Neck supple. Full range of motion. No adenopathy thyromegaly or neck vein distention. Cardiovascular examination reveals regular rhythm rate. S1-S2 normal. No S3 or S4. No discernible murmur noted. Heart sounds are distant. Lungs reveal bilateral expiratory wheezes and rhonchi. No crackles. Breath sounds are equal bilaterally. Abdomen soft bowel sounds are heard. No masses or tenderness. Extremities are intact. No cyanosis clubbing or edema. Skin is without rash or lesion. Neurologic examination is brief but nonfocal. - Labs CBC & Chem 7: 04/28/24 08:54 04/28/24 08:54 Labs: Abnormal Lab Results - Last 24 Hours (Table) 04/27/24 04/27/24 04/27/24 Range/Units 05:36 16:25 17:18 Hct (34.0-46.0) % MCHC (31.0-37.0) g/dL Plt Count 132 L (150-450) k/uL Lymphocytes # (Manual) 0.50 L (1.0-4.8) k/uL APTT (22.0-30.0) sec ABG pH (7.35-7.45) ABG pCO2 (35-45) mmHg ABG HCO3 (21-25) mmol/L ABG Total CO2 (19-24) mmol/L ABG O2 Saturation (94-97) % Sodium (137-145) mmol/L Potassium (3.5-5.1) mmol/L Chloride (98-107) mmol/L Carbon Dioxide (22-30) mmol/L BUN (7-17) mg/dL Glucose (74-99) mg/dL POC Glucose (mg/dL) 161 H (70-110) mg/dL Hemoglobin A1c 6.1 H (<=6.0) % Total Protein (6.3-8.2) g/dL Albumin (3.5-5.0) g/dL Stool Occult Blood (Negative) 04/27/24 04/27/24 04/27/24 Range/Units 17:18 17:18 18:40 Hct (34.0-46.0) % MCHC (31.0-37.0) g/dL Plt Count (150-450) k/uL Lymphocytes # (Manual) (1.0-4.8) k/uL APTT 65.7 H (22.0-30.0) sec ABG pH (7.35-7.45) ABG pCO2 (35-45) mmHg ABG HCO3 (21-25) mmol/L ABG Total CO2 (19-24) mmol/L ABG O2 Saturation (94-97) % Sodium 131 L (137-145) mmol/L Potassium (3.5-5.1) mmol/L Chloride 97 L (98-107) mmol/L Carbon Dioxide (22-30) mmol/L BUN 32 H (7-17) mg/dL Glucose 150 H (74-99) mg/dL POC Glucose (mg/dL) (70-110) mg/dL Hemoglobin A1c (<=6.0) % Total Protein 5.9 L (6.3-8.2) g/dL Albumin 3.1 L (3.5-5.0) g/dL Stool Occult Blood Positive H (Negative) 04/28/24 04/28/24 04/28/24 Range/Units 08:16 08:32 08:54 Hct 47.0 H (34.0-46.0) % MCHC 30.1 L (31.0-37.0) g/dL Plt Count 122 L (150-450) k/uL Lymphocytes # (Manual) (1.0-4.8) k/uL APTT (22.0-30.0) sec ABG pH 7.25 L (7.35-7.45) ABG pCO2 81 H* (35-45) mmHg ABG HCO3 35 H (21-25) mmol/L ABG Total CO2 38 H (19-24) mmol/L ABG O2 Saturation 98.1 H (94-97) % Sodium (137-145) mmol/L Potassium (3.5-5.1) mmol/L Chloride (98-107) mmol/L Carbon Dioxide (22-30) mmol/L BUN (7-17) mg/dL Glucose (74-99) mg/dL POC Glucose (mg/dL) 138 H (70-110) mg/dL Hemoglobin A1c (<=6.0) % Total Protein (6.3-8.2) g/dL Albumin (3.5-5.0) g/dL Stool Occult Blood (Negative) 04/28/24 Range/Units 08:54 Hct (34.0-46.0) % MCHC (31.0-37.0) g/dL Plt Count (150-450) k/uL Lymphocytes # (Manual) (1.0-4.8) k/uL APTT (22.0-30.0) sec ABG pH (7.35-7.45) ABG pCO2 (35-45) mmHg ABG HCO3 (21-25) mmol/L ABG Total CO2 (19-24) mmol/L ABG O2 Saturation (94-97) % Sodium (137-145) mmol/L Potassium 5.2 H (3.5-5.1) mmol/L Chloride (98-107) mmol/L Carbon Dioxide 33 H (22-30) mmol/L BUN 31 H (7-17) mg/dL Glucose 130 H (74-99) mg/dL POC Glucose (mg/dL) (70-110) mg/dL Hemoglobin A1c (<=6.0) % Total Protein 6.1 L (6.3-8.2) g/dL Albumin 3.2 L (3.5-5.0) g/dL Stool Occult Blood (Negative) Assessment and Plan Assessment: Acute hypoxic respiratory failure secondary to an acute exacerbation of chronic obstructive pulmonary disease complicated by influenza A. Acute influenza A infection. Troponin leak, currently on a heparin drip. Chronic and ongoing tobacco dependence of greater than 40 years. Chronic obstructive pulmonary disease, not on treatment in the outpatient setting. Hypertension. Plan: Plan dated April 27, 2024. The patient is seen today in room 372. She is currently on Airvo, with settings of 60 L/min, and FiO2 of 60%. The patient is also receiving saline at 5 cc an hour, a Cardizem drip at 5 mg an hour, and IV heparin, with monitoring of her PTT. She took her Airvo cannula off, and her saturations dropped down to 84%. All labs, x-rays, and medications are reviewed. The patient continues on appropriate bronchodilators, prednisone, and Tamiflu. We will continue to follow make recommendations along the way. A total of 50 minutes was spent on this patient, in the process of interviewing her, examining her, and reviewing pertinent laboratory data, x-rays, and medications. In addition, we discussed the diagnosis, treatments, and prognosis of this patient with the nursing staff, and the patient themselves. Plan dated April 28, 2024. The patient is seen today in room 372. The patient currently is on BiPAP, with settings of 14/6, and 40%. She is getting saline at 20 cc an hour. Yesterday, she was on Airvo. All labs, x-rays, and medications are reviewed. The pat apryl's overall prognosis remains very poor. A total of 50 minutes was spent on this patient, in the process of interviewing her, examining her, and reviewing pertinent laboratory data, x-rays, and medications. In addition, we discussed the diagnosis, treatment, prognosis, with the patient's family, and bedside nurse. Time with Patient: Greater than 30
--- NOTE | 2024-04-28 21:20 | P.PN ---
Subjective Progress Note Date: 04/28/24 Subjective Progress Note Date: 04/27/24 This is a 73-year-old white female who was admitted for acute respiratory failure with influenza A. She is currently on Airvo high flow oxygen and apparently went into atrial fibrillation last night. She remains on Cardizem d rip this morning. She is still on consultation by cardiology and pulmonary critical care. She she complains of weakness and fatigue with shortness of breath but she denies any fever. She was assessed for anxiety and she states she has some irritability but anxiety is controlled. 04/28/2024 patient was seen lethargic today not very responsive on a BiPAP. She is currently in sinus rhythm and Cardizem drip has been stopped she had an episode of dark stool which was guaiac positive last p.m. her hemoglobin is 14.2 she does no signs of active bleeding and her vital signs are stable. Heparin wa s held because of the dark stool continue to monitor patient Objective - Vital Signs Vital signs: Vital Signs Temp 98 F 04/27/24 16:29 Pulse 107 H 04/27/24 16:29 Resp 24 04/27/24 16:29 BP 95/55 04/27/24 16:29 Pulse Ox 96 04/27/24 16:29 FiO2 55 04/27/24 16:36 Intake & Output 04/27/24 04/27/24 04/28/24 06:59 18:59 06:59 Intake Total 280.167 866.333 Output Total 300 Balance -19.833 866.333 Weight 62 kg Intake: Intake, IV Titration 280.167 146.333 Amount Diltiazem 125 mg In 30.167 94.833 Sodium Chloride 0.9% 100 ml @ 10 MG/HR 10 mls/hr IV .[id number] [facility] Rx#: [id number] Heparin Sod,Pork in 0.45% 250 51.5 NaCl 25,000 unit In 0.45 % NaCl 1 250ml.bag @ 11. 603 UNITS/KG/HR 10 mls/hr IV .Q24H [facility] Rx#: [id number] Oral 720 Output: Urine 300 Other: Voiding Method Bedside Commode Bedside Commode # Voids 1 2 - Exam GENERAL: This is a 73-year-old female. Pleasant and cooperative. HEENT: Head is atraumatic, normocephalic. Pupils are equal, round, and reactive to light. Sclerae anicteric. Conjunctivae are clear. Mucus membranes of the mouth are moist. Neck is supple. RESPIRATORY: Diminished breath sounds bilaterally with poor air exchange currently on high flow oxygen CARDIOVASCULAR: Irregular rate and rhythm. GASTROINTESTINAL: No distention noted. Abdomen soft and round. Normal active bowel sounds auscultated x 4 quadrants. No pain or tenderness noted upon palpation. INTEGUMENTARY: No cyanosis. No jaundice. No rashes noted. No cellulitis noted. EXTREMITIES: 2+ peripheral pulses. +1 peripheral edema. No calf tenderness noted. NEUROLOGIC: Cranial nerves II-XII intact. PSYCHIATRIC: Awake, alert, and oriented X 3. Appropriate affect. Intact judgement and insight. - Labs CBC & Chem 7: 04/27/24 17:18 04/27/24 17:18 Labs: Abnormal Lab Results - Last 24 Hours (Table) 04/27/24 04/27/24 04/27/24 Range/Units 05:36 05:36 05:36 WBC 10.9 H (3.8-10.6) k/uL Hct 46.5 H (34.0-46.0) % Plt Count 142 L (150-450) k/uL Neutrophils # (Manual) 9.37 H (1.3-7.7) k/uL Lymphocytes # (Manual) 0.65 L (1.0-4.8) k/uL APTT 53.6 H (22.0-30.0) sec Sodium 134 L (137-145) mmol/L Chloride (98-107) mmol/L Carbon Dioxide 32 H (22-30) mmol/L BUN 22 H (7-17) mg/dL Glucose (74-99) mg/dL POC Glucose (mg/dL) (70-110) mg/dL Hemoglobin A1c (<=6.0) % AST 47 H (14-36) U/L ALT 36 H (4-34) U/L Total Protein 6.1 L (6.3-8.2) g/dL Albumin 3.2 L (3.5-5.0) g/dL 04/27/24 04/27/24 04/27/24 Range/Units 05:36 16:25 17:18 WBC (3.8-10.6) k/uL Hct (34.0-46.0) % Plt Count 132 L (150-450) k/uL Neutrophils # (Manual) (1.3-7.7) k/uL Lymphocytes # (Manual) 0.50 L (1.0-4.8) k/uL APTT (22.0-30.0) sec Sodium (137-145) mmol/L Chloride (98-107) mmol/L Carbon Dioxide (22-30) mmol/L BUN (7-17) mg/dL Glucose (74-99) mg/dL POC Glucose (mg/dL) 161 H (70-110) mg/dL Hemoglobin A1c 6.1 H (<=6.0) % AST (14-36) U/L ALT (4-34) U/L Total Protein (6.3-8.2) g/dL Albumin (3.5-5.0) g/dL 04/27/24 04/27/24 Range/Units 17:18 17:18 WBC (3.8-10.6) k/uL Hct (34.0-46.0) % Plt Count (150-450) k/uL Neutrophils # (Manual) (1.3-7.7) k/uL Lymphocytes # (Manual) (1.0-4.8) k/uL APTT 65.7 H (22.0-30.0) sec Sodium 131 L (137-145) mmol/L Chloride 97 L (98-107) mmol/L Carbon Dioxide (22-30) mmol/L BUN 32 H (7-17) mg/dL Glucose 150 H (74-99) mg/dL POC Glucose (mg/dL) (70-110) mg/dL Hemoglobin A1c (<=6.0) % AST (14-36) U/L ALT (4-34) U/L Total Protein 5.9 L (6.3-8.2) g/dL Albumin 3.1 L (3.5-5.0) g/dL Assessment and Plan (1) Afib currently in sinus rhythm Current Visit: Yes Status: Acute Code(s): I48.91 - UNSPECIFIED ATRIAL FIBRILLATION SNOMED Code(s): 39755085 (2) Acute exacerbation of chronic obstructive pulmonary disease (COPD) Current Visit: Yes Status: Acute Code(s): J44.1 - CHRONIC OBSTRUCTIVE PULMONARY DISEASE W (ACUTE) EXACERBATION SNOMED Code(s): 659327257 (3) Influenza A Current Visit: Yes Status: Acute Code(s): J10.1 - FLU DUE TO OTH IDENT INFLUENZA VIRUS W OTH RESP MANIFEST SNOMED Code(s): 709772313 (4) NSTEMI (non-ST elevated myocardial infarction) Current Visit: Yes Status: Acute Code(s): I21.4 - NON-ST ELEVATION (NSTEMI) MYOCARDIAL INFARCTION SNOMED Code(s): 29080651 Plan: Patient was placed on Cardizem drip she is still consultation by cardiology and pulmonary will continue pulmonary support with high flow oxygen will monitor hemoglobin will hold heparin for now because of guaiac positive stool hemoglobin stable at 14.2. Objective - Vital Signs Vital signs: Vital Signs Temp 98.1 F 04/28/24 20:42 Pulse 77 04/28/24 20:42 Resp 24 04/28/24 20:42 BP 169/70 04/28/24 20:42 Pulse Ox 97 04/28/24 20:42 FiO2 40 04/28/24 20:42 Intake & Output 04/28/24 04/28/24 04/29/24 06:59 18:59 06:59 Intake Total 112.167 Balance 112.167 Weight 66.5 kg Intake: Intake, IV Titration 112.167 Amount Heparin Sod,Pork in 0.45% 112.167 NaCl 25,000 unit In 0.45 % NaCl 1 250ml.bag @ 11. 603 UNITS/KG/HR 10 mls/hr IV .Q24H [facility] [place] Rx#: [id number] Other: Voiding Method Bedside Commode Bedside Commode # Voids 1 1 - Labs CBC & Chem 7: 04/28/24 08:54 04/28/24 08:54 Labs: Abnormal Lab Results - Last 24 Hours (Table) 04/28/24 04/28/24 04/28/24 Range/Units 08:16 08:32 08:54 Hct 47.0 H (34.0-46.0) % MCHC 30.1 L (31.0-37.0) g/dL Plt Count 122 L (150-450) k/uL ABG pH 7.25 L (7.35-7.45) ABG pCO2 81 H* (35-45) mmHg ABG HCO3 35 H (21-25) mmol/L ABG Total CO2 38 H (19-24) mmol/L ABG O2 Saturation 98.1 H (94-97) % Potassium (3.5-5.1) mmol/L Carbon Dioxide (22-30) mmol/L BUN (7-17) mg/dL Glucose (74-99) mg/dL POC Glucose (mg/dL) 138 H (70-110) mg/dL Total Protein (6.3-8.2) g/dL Albumin (3.5-5.0) g/dL 04/28/24 Range/Units 08:54 Hct (34.0-46.0) % MCHC (31.0-37.0) g/dL Plt Count (150-450) k/uL ABG pH (7.35-7.45) ABG pCO2 (35-45) mmHg ABG HCO3 (21-25) mmol/L ABG Total CO2 (19-24) mmol/L ABG O2 Saturation (94-97) % Potassium 5.2 H (3.5-5.1) mmol/L Carbon Dioxide 33 H (22-30) mmol/L BUN 31 H (7-17) mg/dL Glucose 130 H (74-99) mg/dL POC Glucose (mg/dL) (70-110) mg/dL Total Protein 6.1 L (6.3-8.2) g/dL Albumin 3.2 L (3.5-5.0) g/dL Assessment and Plan (1) Afib Current Visit: Yes Status: Acute Code(s): I48.91 - UNSPECIFIED ATRIAL FIBRILLATION SNOMED Code(s): 13419368 (2) Acute exacerbation of chronic obstructive pulmonary disease (COPD) Current Visit: Yes Status: Acute Code(s): J44.1 - CHRONIC OBSTRUCTIVE PULMONARY DISEASE W (ACUTE) EXACERBATION SNOMED Code(s): 246713036 (3) Influenza A Current Visit: Yes Status: Acute Code(s): J10.1 - FLU DUE TO OTH IDENT INFLUENZA VIRUS W OTH RESP MANIFEST SNOMED Code(s): 518074341 (4) NSTEMI (non-ST elevated myocardial infarction) Current Visit: Yes Status: Acute Code(s): I21.4 - NON-ST ELEVATION (NSTEMI) MYOCARDIAL INFARCTION SNOMED Code(s): 94411580
[2024-04-29 07:59] LABS: African American GFR (CKD) >90 (>60 ml/min/1.73 sqM); Blood Urea Nitrogen 23 mg/dL (7-17); Calcium 8.8 mg/dL (8.4-10.2); Chloride 100 mmol/L (98-107); Glucose 88 mg/dL (74-99); Non-African American GFR(CKD) 88 (>60 ml/min/1.73 sqM); Potassium 4.7 mmol/L (3.5-5.1); Sodium 141 mmol/L (137-145)
[2024-04-29 08:07] LABS: Anion Gap 5 mmol/L
[2024-04-29 08:18] LABS: Carbon Dioxide 36 mmol/L (22-30)
--- NOTE | 2024-04-29 14:19 | P.PN ---
Subjective Progress Note Date: 04/29/24 The patient is a 73-year-old female patient with a past medical history significant for overweight as well as hypertension and dyslipidemia and smoking and COPD presented to the hospital complaining of increasing shortness of breath associated with congestion. For the last few days she has been experiencing progressive exertional dyspnea associated with the feeling of congestions with no fever or chills but also she has been experiencing cough with no sputum. No symptoms of chest pain or chest discomfort. She underwent further evaluation including testing for influenza A and that came in to be abnormal. We consulted to see the patient because of abnormal troponin. The EKG showed sinus mechanism with RBBB and diffuse nonspecific ST and T wave abnormalities. The chest x-ray did not show any acute abnormalities. NT proBNP came in to be around only 1800. 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 The physical examination is remarkable for regular rhythm with a distant heart sounds and bilateral r honchi are noted also on examination with no edema was noted in the lower extremities April 27, 2024 Patient is seen and examined at bedside this a.m. Patient is noticed to be in atrial fibrillation with RVR Subjectively she reports that she is feeling weak and tired. She is also having some shortness of breath 04/28 Patient seen and examined. A-Team was called this morning for respiratory f ailure. Patient also was noted to have black stools yesterday and heparin drip was discontinued. Telemetry is sinus rhythm with a right bundle branch block. Patient had converted from A-fib to sinus rhythm last evening at 7 PM. Patient is not currently on Cardizem drip. We will order lab work and Protonix due to the black stools. Further workup will have to be addressed by the attending. Blood pressure 119/76, heart rate 76, pulse ox 91% on BiPAP. Patient remains in isolation for influenza A. TSH 1.12. Triglycerides 103, cholesterol 147, LDL 66. Magnesium 2.3. Echocardiogram reveals mild LVH with preserved systolic function. 04/29 Patient seen and examined. She continues to have mental status changes. She has had no further stools and no signs of GI bleed. Heparin was discontinued yesterday by the attending due to stool positive for occult blood. Patient is currently in a sinus rhythm. She is on BiPAP. Pulse ox is 99% on FiO2 40%, heart rate 73, blood pressure 127/54. Repeat blood work reveals BUN 23 creatinine 0.64. On exam Regular pulse, distant heart sounds. Bilateral rhonchi and bilateral crackles audible in lung chapman No swelling about the lower extremity Normal JVP No focal neurological deficits Assessment Atrial fibrillation with RVR, converted to sinus rhythm Influenza A infection NSTEMI type II Significant history of smoking COPD Right bundle branch block Hypertension and dyslipidemia and overweight Black stools x 1 occasion Plan Start patient on Eliquis 5 mg twice daily Continue metoprolol succinate 25 mg twice daily. Cardiology will sign off this case and follow on an as-needed basis. Please reconsult for any new concerns. Patient may follow-up in the office in one to 2 weeks. Nurse practitioner note has been reviewed, I agree with documented findings and plan of care. Patient was seen and examined. Objective - Vital Signs Vital signs: Vital Signs Temp 98.9 F 04/29/24 07:42 Pulse 82 04/29/24 08:40 Resp 29 H 04/29/24 07:42 BP 132/67 04/29/24 07:42 Pulse Ox 95 04/29/24 08:40 FiO2 40 04/29/24 08:40 Intake & Output 04/28/24 04/29/24 04/29/24 18:59 06:59 18:59 Output Total 450 Balance -450 Weight 74 kg Output: Urine 450 Other: Voiding Method Bedside Commode Bedside Commode Bedside Commode # Voids 1 - Labs CBC & Chem 7: 04/28/24 08:54 04/29/24 06:59 Labs: Abnormal Lab Results - Last 24 Hours (Table) 04/29/24 Range/Units 06:59 Carbon Dioxide 36 H (22-30) mmol/L BUN 23 H (7-17) mg/dL
--- NOTE | 2024-04-29 14:37 | P.PN ---
Subjective Progress Note Date: 04/29/24 Principal diagnosis: COPD exacerbation, influenza A infection. This is a pleasant 73-year-old female patient with a known history of hypertension and chronic obstructive pulmonary disease, chronic and ongoing tobacco dependence of greater than 40 years who presented to the emergency room last evening with a 2 to 3-day history of increasing shortness of breath, cough and congestion. She was found to be hypoxemic and placed on 6 L high flow nasal cannula. Chest x-ray showed no acute pulmonary process. White count 7.9. Hemoglobin 14.9. Platelets 140. INR 1.0. D-dimer 0.56. Sodium 137. Potassium 5.0. Bicarb 28. BUN 15. Creatinine 0.71. Troponin 0.222, 0.262. Procalcitonin negative at 0.10. Viral screen is positive for influenza A. She was initiated on a heparin drip. She is seen today in consultation in the emergency department. She is currently sitting up on a stretcher. Awake and alert in no acute distress. She does have a dry nonproductive cough. Her main complaint is that of fatigue today. She is remains hypoxic now requiring 12 L high flow nasal cannula to maintain O2 saturation in the low 90s. Progress note dated April 27, 2024. 73-year-old female who was seen in consultation yesterday. Please see the note above. The patient is seen today in room 372. She continues on Airvo, with settings of 60 L/min, and FiO2 of 60%. She is getting saline at 5 cc an hour, and Cardizem drip at 5 mg an hour. She also continues on IV heparin. She apparently took her AIRVO device off, and her saturations on room air are only 84%. They did recover, once Airvo was placed back on the patient. Current labs include a white count of 10.9, hemoglobin 14.5, hematocrit 46.5, and a platelet count of 142,000. PTT is 53.6. Sodium 134, potassium 4.8, chlorides 99, CO2 32, BUN 22, creatinine 0.72. AST was 47. ALT is 36. Procalcitonin level was 0.10 and repeat was 0.07. Chest x-ray shows no acute pulmonary process. Progress note dated April 28, 2024. 73-year-old female seen today in room 372. The patient continues on BiPAP, with settings of 14/6, and 40%. She is getting saline at 20 cc an hour. The patient did test positive for influenza. Current laboratory data includes a white count 7.4, hemoglobin 14.1, hematocrit 47, and a platelet count of 122,000. Blood gases were done and show pO2 of 101, pCO2 of 81, pH of 7.25. They were done on 55% oxygen. Sodium 137, potassium 5.2, chlorides 101, CO2 33, BUN 31, creatinine 0.76. Glucose 130. Albumin is 3.2. A chest x-ray today shows no acute pulmonary process. Progress note dated April 29, 2024. 73-year-old female seen today in room 372. The patient is currently on BiPAP, with settings of 14/6, and 40%. She continues on Tamiflu. The patient is a DO NOT INTUBATE patient. Labs today are reviewed. Sodium 141, potassium 4.7, chlorides 100, CO2 36, BUN 23, and creatinine 0.64. Calcium is 8.8. Glucose is 88. Chest x-ray from yesterday, does not show an acute pulmonary process. Objective - Vital Signs Vital signs: Vital Signs Temp 98.5 F 04/29/24 11:20 Pulse 85 04/29/24 11:56 Resp 21 04/29/24 11:20 BP 127/54 04/29/24 11:20 Pulse Ox 99 04/29/24 11:20 FiO2 40 04/29/24 08:40 Intake & Output 04/28/24 04/29/24 04/29/24 18:59 06:59 18:59 Output Total 450 100 Balance -450 -100 Weight 74 kg Output: Urine 450 100 Other: Voiding Method Bedside Commode Bedside Commode Bedside Commode # Voids 1 - Exam No acute distress, somnolent/lethargic. BiPAP mask in place. HEENT examination is grossly unremarkable. Mucous membranes are moist. No oral lesions. Neck supple. Full range of motion. No adenopathy thyromegaly or neck vein distention. Cardiovascular examination reveals regular rhythm rate. S1-S2 normal. No S3 or S4. No discernible murmur noted. Heart sounds are distant. Lungs reveal bilateral expiratory wheezes and rhonchi. No crackles. Breath sounds are equal bilaterally. Abdomen soft bowel sounds are heard. No masses or tenderness. Extremities are intact. No cyanosis clubbing or edema. Skin is without rash or lesion. Neurologic examination is brief but nonfocal. - Labs CBC & Chem 7: 04/28/24 08:54 04/29/24 06:59 Labs: Abnormal Lab Results - Last 24 Hours (Table) 04/29/24 Range/Units 06:59 Carbon Dioxide 36 H (22-30) mmol/L BUN 23 H (7-17) mg/dL Assessment and Plan Assessment: Acute hypoxic respiratory failure secondary to an acute exacerbation of chronic obstructive pulmonary disease complicated by influenza A. Acute influenza A infection. Troponin leak, currently on a heparin drip. Chronic and ongoing tobacco dependence of greater than 40 years. Chronic obstructive pulmonary disease, not on treatment in the outpatient setting. Hypertension. Plan: Plan dated April 27, 2024. The patient is seen today in room 372. She is currently on Airvo, with settings of 60 L/min, and FiO2 of 60%. The patient is also receiving saline at 5 cc an hour, a Cardizem drip at 5 mg an hour, and IV heparin, with monitoring of her PTT. She took her Airvo cannula off, and her saturations dropped down to 84%. All labs, x-rays, and medications are reviewed. The patient continues on appropriate bronchodilators, prednisone, and Tamiflu. We will continue to follow make recommendations along the way. A total of 50 minutes was spent on this patient, in the process of interviewing her, examining her, and reviewing pertinent laboratory data, x-rays, and medications. In addition, we discussed the diagnosis, treatments, and prognosis of this patient with the nursing staff, and the patient themselves. Plan dated April 28, 2024. The patient is seen today in room 372. The patient currently is on BiPAP, with settings of 14/6, and 40%. She is getting saline at 20 cc an hour. Yesterday, she was on Airvo. All labs, x-rays, and medications are reviewed. The patient's overall prognosis remains very poor. A total of 50 minutes was spent on this patient, in the process of interviewing her, examining her, and reviewing pertinent laboratory data, x-rays, and medications. In addition, we discussed the diagnosis, treatment, prognosis, with the patient's family, and bedside nurse. Plan dated April 29, 2024. The patient is seen today in room 372. The patient does continue on BiPAP, with settings of 14/6, and 40%. The patient also continues on Tamiflu. The patient appears not to be receiving any IV fluids. All labs, x-rays, and medications are reviewed. We will continue to follow the patient, make recommendations along the way. 50 minutes was spent, on this patient, interviewing her, examining her, and reviewing pertinent laboratory data, x-rays, and medications. In addition, we discussed the diagnosis, treatment, prognosis, up with the patient, and the patient's bedside nurse. Prognosis is guarded. She is a DO NOT INTUBATE patient. Time with Patient: Greater than 30
[2024-04-29] MEDS: APIXABAN 5 MG TAB PO SCH (15:12)
--- NOTE | 2024-04-29 15:13 | P.PN ---
Subjective Progress Note Date: 04/29/24 04/27/24 This is a 73-year-old white female who was admitted for acute respiratory failure with influenza A. She is currently on Airvo high flow oxygen and apparently went into atrial fibrillation last night. She remains on Cardizem drip this morning. She is still on consultation by cardiology and pulmonary critical care. She she complains of weakness and fatigue with shortness of breath but she denies any fever. She was assessed for anxiety and she states she has some irritability but anxiety is controlled. 04/28/2024 patient was seen lethargic today not very responsive on a BiPAP. She is currently in sinus rhythm and Cardizem drip has been stopped she had an episode of dark stool which was guaiac positive last p.m. her hemoglobin is 14.2 she does no signs of active bleeding and her vital signs are stable. Heparin was held because of the dark stool continue to monitor patient Maintained on Tamiflu, BiPAP, 14/6, 40%,O2 sats mid to high 90s. Patient is currently full code with no intubation. Son at bedside, CODE STATUS further addressed as per PCP. Son wishes to discuss further with his family before making any changes. Afebrile, renal function stable. Vital signs stable, hemoglobin stable 14.1, no signs of active bleeding. Objective - Vital Signs Vital signs: Vital Signs Temp 98.5 F 04/29/24 11:20 Pulse 85 04/29/24 11:56 Resp 21 04/29/24 11:20 BP 127/54 04/29/24 11:20 Pulse Ox 99 04/29/24 11:20 FiO2 40 04/29/24 08:40 Intake & Output 04/28/24 04/29/24 04/29/24 18:59 06:59 18:59 Output Total 450 100 Balance -450 -100 Weight 74 kg Output: Urine 450 100 Other: Voiding Method Bedside Commode Bedside Commode Bedside Commode # Voids 1 - Exam GENERAL: Pleasant and cooperative, alert and oriented x 3, wearing BiPAP. HEENT: Head is atraumatic, normocephalic. Pupils are equal, round, and reactive to light. Sclerae anicteric. Conjunctivae are clear. Neck is supple. RESPIRATORY: Diminished breath sounds bilaterally with scattered rhonchi and expiratory wheezes CARDIOVASCULAR: Irregular rate and rhythm. GASTROINTESTINAL: No distention noted. Abdomen soft and round. Normal active bowel sounds auscultated x 4 quadrants. No pain or tenderness noted upon palpation. INTEGUMENTARY: No cyanosis. No jaundice. No rashes noted. No cellulitis noted. EXTREMITIES: 2+ peripheral pulses. +1 peripheral edema. No calf tenderness noted. NEUROLOGIC: Cranial nerves II-XII intact. - Labs CBC & Chem 7: 04/28/24 08:54 04/29/24 06:59 Labs: Abnormal Lab Results - Last 24 Hours (Table) 04/29/24 Range/Units 06:59 Carbon Dioxide 36 H (22-30) mmol/L BUN 23 H (7-17) mg/dL Assessment and Plan Assessment: 1) Afib currently in sinus rhythm Current Visit: Yes Status: Acute Code(s): I48.91 - UNSPECIFIED ATRIAL FIBRILLATION SNOMED Code(s): 86661623 (2) Acute exacerbation of chronic obstructive pulmonary disease (COPD) Current Visit: Yes Status: Acute Code(s): J44.1 - CHRONIC OBSTRUCTIVE PULMONARY DISEASE W (ACUTE) EXACERBATION SNOMED Code(s): 681507388 (3) Influenza A Current Visit: Yes Status: Acute Code(s): J10.1 - FLU DUE TO OTH IDENT INFLUENZA VIRUS W OTH RESP MANIFEST SNOMED Code(s): 225544649 (4) NSTEMI (non-ST elevated myocardial infarction) Current Visit: Yes Status: Acute Code(s): I21.4 - NON-ST ELEVATION (NSTEMI) MYOCARDIAL INFARCTION SNOMED Code(s): 79836336 Plan: Continue on current medication regimen ,monitoring and symptomatic eloisa tment. Hemoglobin stable, Eliquis resumed as per cardiology. Close monitoring of hemoglobin, electrolytes and renal function with repeat labs ordered for a.m. aggressive pulmonary toileting, following closely with pulmonary. prognosis guarded given multiple complex medical issues. CODE STATUS further discussed with son with no further changes at this time as he wishes to discuss with his family. The impression and plan of care has been dictated as directed. : I performed a history and examination of this patient, discussed the same with the dictator. I agree with the dictator's note ,documented as a scribe. Any additional findings or plans will be noted.
[2024-04-29] MEDS ORDERED: HYDROmorphone 0.5 MG/0.5 ML SYRINGE IVP PRN (17:58)
[2024-04-29] MEDS: ACETAMINOPHEN IV (For NPO) 1,000 MG in EMPTY BAG 1 BAG IVPB SCH (19:07)
[2024-04-29] MEDS: ACETAMINOPHEN IV (For NPO) 1,000 MG in EMPTY BAG 1 BAG IVPB PRN (19:16)
[2024-04-29] MEDS: ATORVASTATIN 40 MG TAB PO SCH (22:07)
[2024-04-30] MEDS: methylPREDNISolone SOD SUCCI 40 MG/ML 1 ML VIAL IV SCH (00:37)
[2024-04-30 08:09] LABS: HCT 43.9 % (34.0-46.0); HGB 13.4 gm/dL (11.4-16.0); Hypochromasia Slight; MCH 29.9 pg (25.0-35.0); MCHC 30.6 g/dL (31.0-37.0); MCV 97.7 fL (80.0-100.0); Mean Platelet Volume 8.9; Platelet Count 107 k/uL (150-450); RBC 4.49 m/uL (3.80-5.40); RDW 13.7 % (11.5-15.5); WBC 3.4 k/uL (3.8-10.6)
--- NOTE | 2024-04-30 12:18 | P.PN ---
Subjective Progress Note Date: 04/30/24 04/27/24 This is a 73-year-old white female who was admitted for acute respiratory failure with influenza A. She is currently on Airvo high flow oxygen and apparently went into atrial fibrillation last night. She remains on Cardizem drip this morning. She is still on consultation by cardiology and pulmonary critical care. She she complains of weakness and fatigue with shortness of breath but she denies any fever. She was assessed for anxiety and she states she has some irritability but anxiety is controlled. 04/28/2024 patient was seen lethargic today not very responsive on a BiPAP. She is currently in sinus rhythm and Cardizem drip has been stopped she had an episode of dark stool which was guaiac positive last p.m. her hemoglobin is 14.2 she does no signs of active bleeding and her vital signs are stable. Heparin was held because of the dark stool continue to monitor patient 04/29/2024 maintained on Tamiflu, BiPAP, 14/6, 40%,O2 sats mid to high 90s. Patient is currently full code with no intubation. Son at bedside, CODE STATUS further addressed as per PCP. Son wishes to discuss further with his family before making any changes. Afebrile, renal function stable. Vital signs stable, hemoglobin stable 14.1, no signs of active bleeding. 04/30/2024 continues on BiPAP 14/6 40% FiO2, maintaining O2 sats in the high 90s currently. Afebrile. CBC pending. Telemetry sinus rhythm Objective - Vital Signs Vital signs: Vital Signs Temp 97.6 F 04/30/24 11:01 Pulse 68 04/30/24 11:50 Resp 20 04/30/24 11:01 BP 185/74 04/30/24 11:01 Pulse Ox 92 L 04/30/24 11:01 FiO2 65 04/30/24 11:50 Intake & Output 04/29/24 04/30/24 04/30/24 18:59 06:59 18:59 Output Total 400 Balance -400 Weight 72.5 kg Output: Urine 400 Other: Voiding Method Bedside Commode External Catheter Incontinent # Voids 1 - Exam GENERAL: Pleasant and cooperative, alert and oriented x 2, wearing BiPAP. HEENT: Atraumatic, normocephalic. Pupils are equal, round. Sclerae anicteric. Conjunctivae are clear. Neck is supple. RESPIRATORY: Diminished breath sounds bilaterally with scattered rhonchi and expiratory wheezes CARDIOVASCULAR: S1, S2, regular rate and rhythm. GASTROINTESTINAL: Soft, nondistended, nontender. Positive bowel sounds INTEGUMENTARY: No cyanosis. No jaundice. No rashes noted. No cellulitis noted. EXTREMITIES: 2+ peripheral pulses. no edema, no calf tenderness noted. NEUROLOGIC: Cranial nerves II-XII intact. - Labs CBC & Chem 7: 04/30/24 07:13 04/29/24 06:59 Labs: Abnormal Lab Results - Last 24 Hours (Table) 04/30/24 Range/Units 07:13 WBC 3.4 L (3.8-10.6) k/uL MCHC 30.6 L (31.0-37.0) g/dL Plt Count 107 L (150-450) k/uL Assessment and Plan Assessment: 1) Afib currently in sinus rhythm Current Visit: Yes Status: Acute Code(s): I48.91 - UNSPECIFIED ATRIAL FIBRI LLATION SNOMED Code(s): 94929881 (2) Acute exacerbation of chronic obstructive pulmonary disease (COPD) Current Visit: Yes Status: Acute Code(s): J44.1 - CHRONIC OBSTRUCTIVE PU LMONARY DISEASE W (ACUTE) EXACERBATION SNOMED Code(s): 217295786 (3) Influenza A Current Visit: Yes Status: Acute Code(s): J10.1 - FLU DUE TO OTH IDENT INFLUENZA VIRUS W OTH RESP MANIFEST SNOMED Code(s): 368489062 (4) NSTEMI (non-ST elevated myocardial infarction) Current Visit: Yes Status: Acute Code(s): I21.4 - NON-ST ELEVATION (NSTEMI) MYOCARDIAL INFARCTION SNOMED Code(s): 32479294 Plan: Continue on current medication regimen ,monitoring and symptomatic treatment. CBC pending. Maintain beta-jihan and anticoagulation with Eliquis. Continue aggressive pulmonary toileting, following closely with pulmonary. prognosis guarded given multiple complex medical issues. The impression and plan of care has been dictated as directed. : I performed a history and examination of this patient, discussed the same with the dictator. I agree with the dictator's note ,documented as a scribe. Any additional findings or plans will be noted.
--- NOTE | 2024-04-30 12:59 | P.PN ---
Subjective Progress Note Date: 04/30/24 Principal diagnosis: COPD exacerbation, influenza A infection. This is a pleasant 73-year-old female patient with a known history of hypertension and chronic obstructive pulmonary disease, chronic and ongoing tobacco dependence of greater than 40 years who presented to the emergency room last evening with a 2 to 3-day history of increasing shortness of breath, cough and congestion. She was found to be hypoxemic and placed on 6 L high flow nasal cannula. Chest x-ray showed no acute pulmonary process. White count 7.9. Hemoglobin 14.9. Platelets 140. INR 1.0. D-dimer 0.56. Sodium 137. Potassium 5.0. Bicarb 28. BUN 15. Creatinine 0.71. Troponin 0.222, 0.262. Procalcitonin negative at 0.10. Viral screen is positive for influenza A. She was initiated on a heparin drip. She is seen today in consultation in the emergency department. She is currently sitting up on a stretcher. Awake and alert in no acute distress. She does have a dry nonproductive cough. Her main complaint is that of fatigue today. She is remains hypoxic now requiring 12 L high flow nasal cannula to maintain O2 saturation in the low 90s. Progress note dated April 27, 2024. 73-year-old female who was seen in consultation yesterday. Please see the note above. The patient is seen today in room 372. She continues on Airvo, with settings of 60 L/min, and FiO2 of 60%. She is getting saline at 5 cc an hour, and Cardizem drip at 5 mg an hour. She also continues on IV heparin. She apparently took her AIRVO device off, and her saturations on room air are only 84%. They did recover, once Airvo was placed back on the patient. Current labs include a white count of 10.9, hemoglobin 14.5, hematocrit 46.5, and a platelet count of 142,000. PTT is 53.6. Sodium 134, potassium 4.8, chlorides 99, CO2 32, BUN 22, creatinine 0.72. AST was 47. ALT is 36. Procalcitonin level was 0.10 and repeat was 0.07. Chest x-ray shows no acute pulmonary process. Progress note dated April 28, 2024. 73-year-old female seen today in room 372. The patient continues on BiPAP, with settings of 14/6, and 40%. She is getting saline at 20 cc an hour. The patient did test positive for influenza. Current laboratory data includes a white count 7.4, hemoglobin 14.1, hematocrit 47, and a platelet count of 122,000. Blood gases were done and show pO2 of 101, pCO2 of 81, pH of 7.25. They were done on 55% oxygen. Sodium 137, potassium 5.2, chlorides 101, CO2 33, BUN 31, creatinine 0.76. Glucose 130. Albumin is 3.2. A chest x-ray today shows no acute pulmonary process. Progress note dated April 29, 2024. 73-year-old female seen today in room 372. The patient is currently on BiPAP, with settings of 14/6, and 40%. She continues on Tamiflu. The patient is a DO NOT INTUBATE patient. Labs today are reviewed. Sodium 141, potassium 4.7, chlorides 100, CO2 36, BUN 23, and creatinine 0.64. Calcium is 8.8. Glucose is 88. Chest x-ray from yesterday, does not show an acute pulmonary process. Progress note dated April 30, 2024. 73-year-old female seen today in room 372. The patient is currently on Airvo, with settings of 50 L/min and an FiO2 of 65%. When not on Airvo, the patient is on BiPAP, with settings of 14/6, and 40%. The patient is not receiving any IV fluids. The patient is a DO NOT INTUBATE patient. Current laboratory data includes a white count 3.4, hemoglobin 13.4, hematocrit 43.9, and a platelet count of 107,000. No additional laboratory data as noted. Objective - Vital Signs Vital signs: Vital Signs Temp 97.6 F 04/30/24 11:01 Pulse 68 04/30/24 12:03 Resp 20 04/30/24 11:01 BP 185/74 04/30/24 11:01 Pulse Ox 92 L 04/30/24 11:01 FiO2 65 04/30/24 11:50 Intake & Output 04/29/24 04/30/24 04/30/24 18:59 06:59 18:59 Output Total 400 Balance -400 Weight 72.5 kg Output: Urine 400 Other: Voiding Method Bedside Commode External Catheter Incontinent # Voids 1 - Exam No acute distress, somnolent/lethargic. Airvo nasal cannula in place. HEENT examination is grossly unremarkable. Mucous membranes are moist. No oral lesions. Neck supple. Full range of motion. No adenopathy thyromegaly or neck vein distention. Cardiovascular examination reveals regular rhythm rate. S1-S2 normal. No S3 or S4. No discernible murmur noted. Heart sounds are distant. Lungs reveal bilateral expiratory wheezes and rhonchi. No crackles. Breath sounds are equal bilaterally. Abdomen soft bowel sounds are heard. No masses or tenderness. Extremities are intact. No cyanosis clubbing or edema. Skin is without rash or lesion. Neurologic examination is brief but nonfocal. - Labs CBC & Chem 7: 04/30/24 07:13 04/29/24 06:59 Labs: Abnormal Lab Results - Last 24 Hours (Table) 04/30/24 Range/Units 07:13 WBC 3.4 L (3.8-10.6) k/uL MCHC 30.6 L (31.0-37.0) g/dL Plt Count 107 L (150-450) k/uL Assessment and Plan Assessment: Acute hypoxic respiratory failure secondary to an acute exacerbation of chronic obstructive pulmonary disease complicated by influenza A. Acute influenza A infection. Troponin leak, currently on a heparin drip. Chronic and ongoing tobacco dependence of greater than 40 years. Chronic obstructive pulmonary disease, not on treatment in the outpatient setting. Hypertension. Plan: Plan dated April 27, 2024. The patient is seen today in room 372. She is currently on Airvo, with settings of 60 L/min, and FiO2 of 60%. The patient is also receiving saline at 5 cc an hour, a Cardizem drip at 5 mg an hour, and IV heparin, with monitoring of her PTT. She took her Airvo cannula off, and her saturations dropped down to 84%. All labs, x-rays, and medications are reviewed. The patient continues on appropriate bronchodilators, prednisone, and Tamiflu. We will continue to follow make recommendations along the way. A total of 50 minutes was spent on this patient, in the process of interviewing her, examining her, and reviewing pertinent laboratory data, x-rays, and medications. In addition, we discussed the diagnosis, treatments, and prognosis of this patient with the nursing staff, and the patient themselves. Plan dated April 28, 2024. The patient is seen today in room 372. The patient currently is on BiPAP, with settings of 14/6, and 40%. She is getting saline at 20 cc an hour. Yesterday, she was on Airvo. All labs, x-rays, and medications are reviewed. The patient's overall prognosis remains very poor. A total of 50 minutes was spent on this patient, in the process of interviewing her, examining her, and reviewing pertinent laboratory data, x-rays, and medications. In addition, we discussed the diagnosis, treatment, prognosis, with the patient's family, and bedside nurse. Plan dated April 29, 2024. The patient is seen today in room 372. The patient does continue on BiPAP, with settings of 14/6, and 40%. The patient also continues on Tamiflu. The patient appears not to be receiving any IV fluids. All labs, x-rays, and medications are reviewed. We will continue to follow the patient, make recommendations along the way. 50 minutes was spent, on this patient, interviewing her, examining her, and reviewing pertinent laboratory data, x-rays, and medications. In addition, we discussed the diagnosis, treatment, prognosis, up with the patient, and the patient's bedside nurse. Prognosis is guarded. She is a DO NOT INTUBATE patient. Plan dated April 30, 2024. The patient is seen again today in room 372. The patient has been primarily on BiPAP, but today she is on Airvo, with settings of 50 L/min, and an FiO2 of 65%. Labs, x-rays, and all medications are reviewed. The patient is a DO NOT INTUBATE patient. We will continue to follow the patient, make recommendations along the way. The patient is overall prognosis remains guarded. 50 minutes was spent with this patient, which included taking the history, examining the patient, reviewing pertinent laboratory data, x-rays, and medications, as well as discussing the diagnosis, treatment, and prognosis, with the patient, and the patient's nursing staff. Dictation was produced using [id number]. Please excuse any grammatical, word or spelling errors. Time with Patient: Greater than 30
[2024-04-30] MEDS: ACETAMINOPHEN TAB 325 MG TAB PO PRN (15:01)
[2024-05-01] MEDS ORDERED: DEXTROSE 50% SYRINGE 50 ML IVP PRN ×2 (11:49)
[2024-05-01] MEDS: LOSARTAN 50 MG TAB PO SCH (11:54)
--- NOTE | 2024-05-01 11:54 | P.PN ---
Subjective Progress Note Date: 05/01/24 04/27/24 This is a 73-year-old white female who was admitted for acute respiratory failure with influenza A. She is currently on Airvo high flow oxygen and apparently went into atrial fibrillation last night. She remains on Cardizem drip this morning. She is still on consultation by cardiology and pulmonary critical care. She she complains of weakness and fatigue with shortness of breath but she denies any fever. She was assessed for anxiety and she states she has some irritability but anxiety is controlled. 04/28/2024 patient was seen lethargic today not very responsive on a BiPAP. She is currently in sinus rhythm and Cardizem drip has been stopped she had an episode of dark stool which was guaiac positive last p.m. her hemoglobin is 14.2 she does no signs of active bleeding and her vital signs are stable. Heparin was held because of the dark stool continue to monitor patient 04/29/2024 maintained on Tamiflu, BiPAP, 14/6, 40%,O2 sats mid to high 90s. Patient is currently full code with no intubation. Son at bedside, CODE STATUS further addressed as per PCP. Son wishes to discuss further with his family before making any changes. Afebrile, renal function stable. Vital signs stable, hemoglobin stable 14.1, no signs of active bleeding. 04/30/2024 continues on BiPAP 14/6 40% FiO2, maintaining O2 sats in the high 90s currently. Afebrile. CBC pending. Telemetry sinus rhythm. 05/01/2024 maintained on nebulized bronchodilators, IV steroids, Symbicort ,transitioned to Airvo 65% FiO2. Maintaining O2 sats in the low 90s. Afebrile, Tmax 100.8. Reports easier breathing today, feels weak. Denies chest pain, palpitations. Objective - Vital Signs Vital signs: Vital Signs Temp 98 F 05/01/24 04:00 Pulse 66 05/01/24 04:00 Resp 18 05/01/24 04:00 BP 160/73 05/01/24 04:00 Pulse Ox 92 L 05/01/24 04:32 FiO2 65 05/01/24 04:32 Intake & Output 04/30/24 05/01/24 05/01/24 18:59 06:59 18:59 Intake Total 150 540 Balance 150 540 Weight 72.5 kg 66.5 kg Intake: Intake, IV Titration 50 Amount ACETAMINOPHEN IV (For NPO 50 ) 1,000 mg In Empty Bag 1 bag @ 400 mls/hr IVPB Q6HR PRN Rx#:[id number] Oral 100 540 Other: Voiding Method Incontinent Incontinent # Voids 1 # Bowel Movements 0 - Exam GENERAL: Pleasant and cooperative, alert and oriented x 2, wearing BiPAP. HEENT: Atraumatic, normocephalic. Pupils are equal, round. Sclerae anicteric. C onjunctivae are clear. Neck is supple. RESPIRATORY: Diminished breath sounds bilaterally with less scattered rhonchi and fine expiratory wheezes CARDIOVASCULAR: S1, S2, regular rate and rhythm. GASTROINTESTINAL: Soft, nondistended, nontender. Positive bowel sounds INTEGUMENTARY: No cyanosis. No jaundice. No rashes noted. No cellulitis noted. EXTREMITIES: 2+ peripheral pulses. no edema, no calf tenderness noted. NEUROLOGIC: Cranial nerves II-XII intact. - Labs CBC & Chem 7: 04/30/24 07:13 04/29/24 06:59 Assessment and Plan Assessment: 1) Afib currently in sinus rhythm Current Visit: Yes Status: Acute Code(s): I48.91 - UNSPECIFIED ATRIAL FIBRILLATION SNOMED Code(s): 80055736 (2) Acute exacerbation of chronic obstructive pulmonary disease (COPD) Current Visit: Yes Status: Acute Code(s): J44.1 - CHRONIC OBSTRUCTIVE PULMONARY DISEASE W (ACUTE) EXACERBATION SNOMED Code(s): 485359987 (3) Influenza A Current Visit: Yes Status: Acute Code(s): J10.1 - FLU DUE TO OTH IDENT INFLUENZA VIRUS W OTH RESP MANIFEST SNOMED Code(s): 697109457 (4) NSTEMI (non-ST elevated myocardial infarction) Current Visit: Yes Status: Acute Code(s): I21.4 - NON-ST ELEVATION (NSTEMI) MYOCARDIAL INFARCTION SNOMED Code(s): 68779378 (5)Thrombocytopenia Plan: Continue on current medication regimen ,monitoring and symptomatic tr eatment. Maintain aggressive pulmonary toileting with nebulized bronchodilators, Symbicort and IV steroids.close monitoring of blood sugars with NovoLog sliding scale ordered. Beta-jihan and anticoagulation with Eliquis. PT OT consults in place. Subacute rehab at discharge. The impression and plan of care has been dictated as directed. : I performed a history and examination of this patient, discussed the same with the dictator. I agree with the dictator's note ,documented as a scribe. Any additional findings or plans will be noted.
[2024-05-01 11:58] LABS: Glucose,Whole Blood 164 mg/dL (70-110)
[2024-05-01] MEDS: INSULIN ASPART (NovoLOG) 100 UNIT/ML VIAL SQ SCH (12:08)
--- NOTE | 2024-05-01 15:46 | P.PN ---
Subjective Progress Note Date: 05/01/24 Principal diagnosis: COPD exacerbation, influenza A infection. This is a pleasant 73-year-old female patient with a known history of hypertension and chronic obstructive pulmonary disease, chronic and ongoing tobacco dependence of greater than 40 years who presented to the emergency room last evening with a 2 to 3-day history of increasing shortness of breath, cough and congestion. She was found to be hypoxemic and placed on 6 L high flow nasal cannula. Chest x-ray showed no acute pulmonary process. White count 7.9. Hemoglobin 14.9. Platelets 140. INR 1.0. D-dimer 0.56. Sodium 137. Potassium 5.0. Bicarb 28. BUN 15. Creatinine 0.71. Troponin 0.222, 0.262. Procalcitonin negative at 0.10. Viral screen is positive for influenza A. She was initiated on a heparin drip. She is seen today in consultation in the emergency department. She is currently sitting up on a stretcher. Awake and alert in no acute distress. She does have a dry nonproductive cough. Her main complaint is that of fatigue today. She is remains hypoxic now requiring 12 L high flow nasal cannula to maintain O2 saturation in the low 90s. Progress note dated April 27, 2024. 73-year-old female who was seen in consultation yesterday. Please see the note above. The patient is seen today in room 372. She continues on Airvo, with settings of 60 L/min, and FiO2 of 60%. She is getting saline at 5 cc an hour, and Cardizem drip at 5 mg an hour. She also continues on IV heparin. She apparently took her AIRVO device off, and her saturations on room air are only 84%. They did recover, once Airvo was placed back on the patient. Current labs include a white count of 10.9, hemoglobin 14.5, hematocrit 46.5, and a platelet count of 142,000. PTT is 53.6. Sodium 134, potassium 4.8, chlorides 99, CO2 32, BUN 22, creatinine 0.72. AST was 47. ALT is 36. Procalcitonin level was 0.10 and repeat was 0.07. Chest x-ray shows no acute pulmonary process. Progress note dated April 28, 2024. 73-year-old female seen today in room 372. The patient continues on BiPAP, with settings of 14/6, and 40%. She is getting saline at 20 cc an hour. The patient did test positive for influenza. Current laboratory data includes a white count 7.4, hemoglobin 14.1, hematocrit 47, and a platelet count of 122,000. Blood gases were done and show pO2 of 101, pCO2 of 81, pH of 7.25. They were done on 55% oxygen. Sodium 137, potassium 5.2, chlorides 101, CO2 33, BUN 31, creatinine 0.76. Glucose 130. Albumin is 3.2. A chest x-ray today shows no acute pulmonary process. Progress note dated April 29, 2024. 73-year-old female seen today in room 372. The patient is currently on BiPAP, with settings of 14/6, and 40%. She continues on Tamiflu. The patient is a DO NOT INTUBATE patient. Labs today are reviewed. Sodium 141, potassium 4.7, chlorides 100, CO2 36, BUN 23, and creatinine 0.64. Calcium is 8.8. Glucose is 88. Chest x-ray from yesterday, does not show an acute pulmonary process. Progress note dated April 30, 2024. 73-year-old female seen today in room 372. The patient is currently on Airvo, with settings of 50 L/min and an FiO2 of 65%. When not on Airvo, the patient is on BiPAP, with settings of 14/6, and 40%. The patient is not receiving any IV fluids. The patient is a DO NOT INTUBATE patient. Current laboratory data includes a white count 3.4, hemoglobin 13.4, hematocrit 43.9, and a platelet count of 107,000. No additional laboratory data as noted. Progress note dated May 01, 2024. 73-year-old female seen today in room 372. The patient is currently on Airvo, with settings of 50 L/min, and an FiO2 60%. She did spend a small amount of time on BiPAP, yesterday. The patient is not receiving any IV fluids. She is sitting in a chair next to the hospital bed. She actually looks relatively comfortable. The patient is a full code, with instructions, including not to be intubated. No new labs today, other than a glucose of 164. Objective - Vital Signs Vital signs: Vital Signs Temp 97.8 F 05/01/24 08:05 Pulse 68 05/01/24 12:19 Resp 16 05/01/24 11:40 BP 179/77 05/01/24 11:40 Pulse Ox 97 05/01/24 11:40 FiO2 60 05/01/24 12:04 Intake & Output 04/30/24 05/01/24 05/01/24 18:59 06:59 18:59 Intake Total 150 540 240 Output Total 200 Balance 150 540 40 Weight 72.5 kg 66.5 kg Intake: Intake, IV Titration 50 Amount ACETAMINOPHEN IV (For NPO 50 ) 1,000 mg In Empty Bag 1 bag @ 400 mls/hr IVPB Q6HR PRN Rx#:[id number] Oral 100 540 240 Output: Urine 200 Other: Voiding Method Incontinent Incontinent Incontinent # Voids 1 # Bowel Movements 0 - Exam No acute distress, somnolent/lethargic. Airvo nasal cannula in place. HEENT examination is grossly unremarkable. Mucous membranes are moist. No oral lesions. Neck supple. Full range of motion. No adenopathy thyromegaly or neck vein distention. Cardiovascular examination reveals regular rhythm rate. S1-S2 normal. No S3 or S4. No discernible murmur noted. Heart sounds are distant. Lungs reveal bilateral expiratory wheezes and rhonchi. No crackles. Breath sounds are equal bilaterally. Abdomen soft bowel sounds are heard. No masses or tenderness. Extremities are intact. No cyanosis clubbing or edema. Skin is without rash or lesion. Neurologic examination is brief but nonfocal. - Labs CBC & Chem 7: 04/30/24 07:13 04/29/24 06:59 Labs: Abnormal Lab Results - Last 24 Hours (Table) 05/01/24 Range/Units 11:57 POC Glucose (mg/dL) 164 H (70-110) mg/dL Assessment and Plan Assessment: Acute hypoxic respiratory failure secondary to an acute exacerbation of chronic obstructive pulmonary disease complicated by influenza A. Acute influenza A infection. Troponin leak, currently on a heparin drip. Chronic and ongoing tobacco dependence of greater than 40 years. Chronic obstructive pulmonary disease, not on treatment in the outpatient setting. Hypertension. Plan: Plan dated April 27, 2024. The patient is seen today in room 372. She is currently on Airvo, with settings of 60 L/min, and FiO2 of 60%. The patient is also receiving saline at 5 cc an hour, a Cardizem drip at 5 mg an hour, and IV heparin, with monitoring of her PTT. She took her Airvo cannula off, and her saturations dropped down to 84%. All labs, x-rays, and medications are reviewed. The patient continues on appropriate bronchodilators, prednisone, and Tamiflu. We will continue to follow make recommendations along the way. A total of 50 minutes was spent on this patient, in the process of interviewing her, examining her, and reviewing pertinent laboratory data, x-rays, and medications. In addition, we discussed the diagnosis, treatments, and prognosis of this patient with the nursing staff, and the patient themselves. Plan dated April 28, 2024. The patient is seen today in room 372. The patient currently is on BiPAP, with settings of 14/6, and 40%. She is getting saline at 20 cc an hour. Yesterday, she was on Airvo. All labs, x-rays, and medications are reviewed. The patient's overall prognosis remains very poor. A total of 50 minutes was spent on this patient, in the process of interviewing her, examining her, and reviewing pertinent laboratory data, x-rays, and medications. In addition, we discussed the diagnosis, treatment, prognosis, with the patient's family, and bedside nurse. Plan dated April 29, 2024. The patient is seen today in room 372. The patient does continue on BiPAP, with settings of 14/6, and 40%. The patient also continues on Tamiflu. The patient appears not to be receiving any IV fluids. All labs, x-rays, and medications are reviewed. We will continue to follow the patient, make recommendations along the way. 50 minutes was spent, on this patient, interviewing her, examining her, and reviewing pertinent laboratory data, x-rays, and medications. In addition, we discussed the diagnosis, treatment, prognosis, up with the patient, and the patient's bedside nurse. Prognosis is guarded. She is a DO NOT INTUBATE patient. Plan dated April 30, 2024. The patient is seen again today in room 372. The patient has been primarily on BiPAP, but today she is on Airvo, with settings of 50 L/min, and an FiO2 of 65%. Labs, x-rays, and all medications are reviewed. The patient is a DO NOT INTUBATE patient. We will continue to follow the patient, make recommendations along the way. The patient is overall prognosis remains guarded. 50 minutes was spent with this patient, which included taking the history, examining the patient, reviewing pertinent laboratory data, x-rays, and medications, as well as discussing the diagnosis, treatment, and prognosis, with the patient, and the patient's nursing staff. Dictation was produced using [employer]. Please excuse any grammatical, word or spelling errors. Plan dated May 01, 2024. The patient is again seen today in room 372. The patient has been primarily on Airvo since yesterday according to respiratory therapy. Her Airvo settings include 50 L/min, with an FiO2 of 60%. She was on BiPAP yesterday, briefly. She is not receiving any IV fluids. Labs, x-rays, and all medications are reviewed. The patient is a DO NOT INTUBATE patient. 50 minutes was spent with this patient, including time obtaining her history, examining the patient, reviewing pertinent laboratory data, x-rays, medications, as well as discussing the diagnosis, treatment, prognosis, with the patient, and nursing staff. Overall prognosis remains guarded. We will continue to follow. Dictation was produced using [employer] software. Please excuse any grammatical, word or spelling errors. Time with Patient: Greater than 30
[2024-05-01 16:36] LABS: Glucose,Whole Blood 172 mg/dL (70-110)
[2024-05-01 20:25] LABS: Glucose,Whole Blood 266 mg/dL (70-110)
[2024-05-02 06:09] LABS: Glucose,Whole Blood 141 mg/dL (70-110)
[2024-05-02 07:08] LABS: HCT 43.7 % (34.0-46.0); HGB 13.7 gm/dL (11.4-16.0); MCH 30.1 pg (25.0-35.0); MCHC 31.2 g/dL (31.0-37.0); MCV 96.3 fL (80.0-100.0); Mean Platelet Volume 9.4; RBC 4.54 m/uL (3.80-5.40); RDW 13.4 % (11.5-15.5); WBC 5.9 k/uL (3.8-10.6)
[2024-05-02 07:35] LABS: Platelet Count 107 k/uL (150-450)
[2024-05-02 07:38] LABS: African American GFR (CKD) >90 (>60 ml/min/1.73 sqM); Blood Urea Nitrogen 27 mg/dL (7-17); Calcium 8.8 mg/dL (8.4-10.2); Chloride 94 mmol/L (98-107); Glucose 145 mg/dL (74-99); Non-African American GFR(CKD) >90 (>60 ml/min/1.73 sqM); Potassium 5.1 mmol/L (3.5-5.1); Sodium 135 mmol/L (137-145)
[2024-05-02 07:46] LABS: Anion Gap 7 mmol/L
[2024-05-02 07:49] LABS: Carbon Dioxide 34 mmol/L (22-30)
[2024-05-02 08:14] LABS: Band Neutrophils % 7 %; Lymphocytes # (M) 0.94 k/uL (1.0-4.8); Monocytes # (M) 0.24 k/uL (0-1.0); Neutrophils % (M) 73 %; Nucleated Red Blood Cells 0 /100 WBC (0-0); Total Cells Counted 100
[2024-05-02 11:03] LABS: Glucose,Whole Blood 275 mg/dL (70-110)
--- NOTE | 2024-05-02 13:30 | XR ---
EXAMINATION TYPE: XR chest 1V portable DATE OF EXAM: 05/02/2024 1:04 PM COMPARISON: Chest radiographs from 04/28/2024 CLINICAL INDICATION: Female, 73 years old with history of inceased o2 demand; TECHNIQUE: XR chest 1V portable Frontal view of the chest. FINDINGS: Lungs/Pleura: Scattered subtle reticular and hazy opacities. No evidence of pneumothorax, focal conso lidation or pleural effusion. Pulmonary vascularity: Unremarkable. Heart/mediastinum: Cardiomediastinal silhouette is enlarged and stable. Musculoskeletal: No acute osseous pathology. IMPRESSION: Similar cardiomegaly with scattered reticular opacities correlate for atypical pneumonia. [facility], , 05/02/2024 1:28 PM
--- NOTE | 2024-05-02 13:56 | P.PN ---
Subjective Progress Note Date: 05/02/24 Principal diagnosis: COPD exacerbation, influenza A infection. This is a pleasant 73-year-old female patient with a known history of hypertension and chronic obstructive pulmonary disease, chronic and ongoing tobacco dependence of greater than 40 years who presented to the emergency room last evening with a 2 to 3-day history of increasing shortness of breath, cough and congestion. She was found to be hypoxemic and placed on 6 L high flow nasal cannula. Chest x-ray showed no acute pulmonary process. White count 7.9. Hemoglobin 14.9. Platelets 140. INR 1.0. D-dimer 0.56. Sodium 137. Potassium 5.0. Bicarb 28. BUN 15. Creatinine 0.71. Troponin 0.222, 0.262. Procalcitonin negative at 0.10. Viral screen is positive for influenza A. She was initiated on a heparin drip. She is seen today in consultation in the emergency department. She is currently sitting up on a stretcher. Awake and alert in no acute distress. She does have a dry nonproductive cough. Her main complaint is that of fatigue today. She is remains hypoxic now requiring 12 L high flow nasal cannula to maintain O2 saturation in the low 90s. Progress note dated April 27, 2024. 73-year-old female who was seen in consultation yesterday. Please see the note above. The patient is seen today in room 372. She continues on Airvo, with settings of 60 L/min, and FiO2 of 60%. She is getting saline at 5 cc an hour, and Cardizem drip at 5 mg an hour. She also continues on IV heparin. She apparently took her AIRVO device off, and her saturations on room air are only 84%. They did recover, once Airvo was placed back on the patient. Current labs include a white count of 10.9, hemoglobin 14.5, hematocrit 46.5, and a platelet count of 142,000. PTT is 53.6. Sodium 134, potassium 4.8, chlorides 99, CO2 32, BUN 22, creatinine 0.72. AST was 47. ALT is 36. Procalcitonin level was 0.10 and repeat was 0.07. Chest x-ray shows no acute pulmonary process. Progress note dated April 28, 2024. 73-year-old female seen today in room 372. The patient continues on BiPAP, with settings of 14/6, and 40%. She is getting saline at 20 cc an hour. The patient did test positive for influenza. Current laboratory data includes a white count 7.4, hemoglobin 14.1, hematocrit 47, and a platelet count of 122,000. Blood gases were done and show pO2 of 101, pCO2 of 81, pH of 7.25. They were done on 55% oxygen. Sodium 137, potassium 5.2, chlorides 101, CO2 33, BUN 31, creatinine 0.76. Glucose 130. Albumin is 3.2. A chest x-ray today shows no acute pulmonary process. Progress note dated April 29, 2024. 73-year-old female seen today in room 372. The patient is currently on BiPAP, with settings of 14/6, and 40%. She continues on Tamiflu. The patient is a DO NOT INTUBATE patient. Labs today are reviewed. Sodium 141, potassium 4.7, chlorides 100, CO2 36, BUN 23, and creatinine 0.64. Calcium is 8.8. Glucose is 88. Chest x-ray from yesterday, does not show an acute pulmonary process. Progress note dated April 30, 2024. 73-year-old female seen today in room 372. The patient is currently on Airvo, with settings of 50 L/min and an FiO2 of 65%. When not on Airvo, the patient is on BiPAP, with settings of 14/6, and 40%. The patient is not receiving any IV fluids. The patient is a DO NOT INTUBATE patient. Current laboratory data includes a white count 3.4, hemoglobin 13.4, hematocrit 43.9, and a platelet count of 107,000. No additional laboratory data as noted. Progress note dated May 01, 2024. 73-year-old female seen today in room 372. The patient is currently on Airvo, with settings of 50 L/min, and an FiO2 60%. She did spend a small amount of time on BiPAP, yesterday. The patient is not receiving any IV fluids. She is sitting in a chair next to the hospital bed. She actually looks relatively comfortable. The patient is a full code, with instructions, including not to be intubated. No new labs today, other than a glucose of 164. Progress note dated May 02, 2024. 73-year-old female seen today in room 372. The patient continues on Airvo, 60 L/min, with an FiO2 of 70%. No IV fluids. The patient is resting comfortably in bed. She does not appear to have any shortness of breath or difficulty breathing. Current laboratory data includes a white count 5.9, hemoglobin 13.7, hematocrit 43.7, and a platelet count of 107,000. Sodium 135, potassium 5.1, chlorides 94, CO2 34, BUN 27, and creatinine 0.53. Glucose is 275. Calcium 8.8. Hemoglobin A1c 6.1. Chest x-ray shows cardiomegaly, with scattered reticu lar opacities, consistent with atypical pneumonia. Objective - Vital Signs Vital signs: Vital Signs Temp 99.6 F 05/02/24 08:00 Pulse 55 L 05/02/24 13:10 Resp 22 05/02/24 13:10 BP 178/96 05/02/24 12:00 Pulse Ox 98 05/02/24 12:58 FiO2 90 05/02/24 12:58 Intake & Output 05/01/24 05/02/24 05/02/24 18:59 06:59 18:59 Intake Total 480 540 360 Output Total 200 120 Balance 280 540 240 Weight 81.5 kg Intake: Oral 480 540 360 Output: Urine 200 120 Other: Voiding Method Incontinent Incontinent Incontinent # Voids 2 1 - Exam No acute distress, somnolent/lethargic. Airvo nasal cannula in place. HEENT examination is grossly unremarkable. Mucous membranes are moist. No oral lesions. Neck supple. Full range of motion. No adenopathy thyromegaly or neck vein distention. Cardiovascular examination reveals regular rhythm rate. S1-S2 normal. No S3 or S4. No discernible murmur noted. Heart sounds are distant. Lungs reveal bilateral expiratory wheezes and rhonchi. No crackles. Breath sounds are equal bilaterally. Abdomen soft bowel sounds are heard. No masses or tenderness. Extremities are intact. No cyanosis clubbing or edema. Skin is without rash or lesion. Neurologic examination is brief but nonfocal. - Labs CBC & Chem 7: 05/02/24 06:08 05/02/24 06:08 Labs: Abnormal Lab Results - Last 24 Hours (Table) 05/01/24 05/01/24 05/02/24 Range/Units 16:34 20:18 06:07 Plt Count (150-450) k/uL Lymphocytes # (Manual) (1.0-4.8) k/uL Sodium (137-145) mmol/L Chloride (98-107) mmol/L Carbon Dioxide (22-30) mmol/L BUN (7-17) mg/dL Glucose (74-99) mg/dL POC Glucose (mg/dL) 172 H 266 H 141 H (70-110) mg/dL Hemoglobin A1c (<=6.0) % 05/02/24 05/02/24 05/02/24 Range/Units 06:08 06:08 06:08 Plt Count 107 L (150-450) k/uL Lymphocytes # (Manual) 0.94 L (1.0-4.8) k/uL Sodium 135 L (137-145) mmol/L Chloride 94 L (98-107) mmol/L Carbon Dioxide 34 H (22-30) mmol/L BUN 27 H (7-17) mg/dL Glucose 145 H (74-99) mg/dL POC Glucose (mg/dL) (70-110) mg/dL Hemoglobin A1c 6.1 H (<=6.0) % 05/02/24 Range/Units 11:01 Plt Count (150-450) k/uL Lymphocytes # (Manual) (1.0-4.8) k/uL Sodium (137-145) mmol/L Chloride (98-107) mmol/L Carbon Dioxide (22-30) mmol/L BUN (7-17) mg/dL Glucose (74-99) mg/dL POC Glucose (mg/dL) 275 H (70-110) mg/dL Hemoglobin A1c (<=6.0) % Assessment and Plan Assessment: Acute hypoxic respiratory failure secondary to an acute exacerbation of chronic obstructive pulmonary disease complicated by influenza A. Acute influenza A infection. Troponin leak, currently on a heparin drip. Chronic and ongoing tobacco dependence of greater than 40 years. Chronic obstructive pulmonary disease, not on treatment in the outpatient setting. Hypertension. Plan: Plan dated April 27, 2024. The patient is seen today in room 372. She is currently on Airvo, with settings of 60 L/min, and FiO2 of 60%. The patient is also receiving saline at 5 cc an hour, a Cardizem drip at 5 mg an hour, and IV heparin, with monitoring of her PTT. She took her Airvo cannula off, and her saturations dropped down to 84%. All labs, x-rays, and medications are reviewed. The patient continues on appropriate bronchodilators, prednisone, and Tamiflu. We will continue to follow make recommendations along the way. A total of 50 minutes was spent on this patient, in the process of interviewing her, examining her, and reviewing pertinent laboratory data, x-rays, and medications. In addition, we discussed the diagnosis, treatments, and prognosis of this patient with the nursing staff, and the patient themselves. Plan dated April 28, 2024. The patient is seen today in room 372. The patient currently is on BiPAP, with settings of 14/6, and 40%. She is getting saline at 20 cc an hour. Yesterday, she was on Airvo. All labs, x-rays, and medications are reviewed. The patient's overall prognosis remains very poor. A total of 50 minutes was spent on this patient, in the process of interviewing her, examining her, and reviewing pertinent laboratory data, x-rays, and medications. In addition, we discussed the diagnosis, treatment, prognosis, with the patient's family, and bedside nurse. Plan dated April 29, 2024. The patient is seen today in room 372. The patient does continue on BiPAP, with settings of 14/6, and 40%. The patient also continues on Tamiflu. The patient appears not to be receiving any IV fluids. All labs, x-rays, and medications are reviewed. We will continue to follow the patient, make recommendations along the way. 50 minutes was spent, on this patient, interviewing her, e xamining her, and reviewing pertinent laboratory data, x-rays, and medications. In addition, we discussed the diagnosis, treatment, prognosis, up with the patient, and the patient's bedside nurse. Prognosis is guarded. She is a DO NOT INTUBATE patient. Plan dated April 30, 2024. The patient is seen again today in room 372. The patient has been primarily on BiPAP, but today she is on Airvo, with settings of 50 L/min, and an FiO2 of 65%. Labs, x-rays, and all medications are reviewed. The patient is a DO NOT INTUBATE patient. We will continue to follow the patient, make recommendations along the way. The patient is overall prognosis remains guarded. 50 minutes was spent with this patient, which included taking the history, examining the patient, reviewing pertinent laboratory data, x-rays, and medications, as well as discussing the diagnosis, treatment, and prognosis, with the patient, and the patient's nursing staff. Dictation was produced using [employer] software. Please excuse any grammatical, word or spelling errors. Plan dated May 01, 2024. The patient is again seen today in room 372. The patient has been primarily on Airvo since yesterday according to respiratory therapy. Her Airvo settings include 50 L/min, with an FiO2 of 60%. She was on BiPAP yesterday, briefly. She is not receiving any IV fluids. Labs, x-rays, and all medications are r eviewed. The patient is a DO NOT INTUBATE patient. 50 minutes was spent with this patient, including time obtaining her history, examining the patient, reviewing pertinent laboratory data, x-rays, medications, as well as discussing the diagnosis, treatment, prognosis, with the patient, and nursing staff. Overall prognosis remains guarded. We will continue to follow. Dictation was produced using [employer] software. Please excuse any grammatical, word or spelling errors. Plan dated May 02, 2024. The patient is seen today in room 372. She continues on Airvo, with settings of 60 L/min, and FiO2 70%. She is not receiving any IV fluids. Chest x-ray shows similar findings, consistent with atypical pneumonia. Labs, x-rays, and medications are reviewed. The patient is a DO NOT INTUBATE patient. 50 minutes was spent, with this patient, including time obtaining additional history, examining the patient, reviewing pertinent laboratory data, x-rays, and medications, as well as discussing the diagnosis, treatment, and prognosis, with the patient, the patient's bedside nurse. Dictation was produced using [employer] software. Please excuse any grammatical, word or spelling errors. Time with Patient: Greater than 30
[2024-05-02 16:11] LABS: Glucose,Whole Blood 229 mg/dL (70-110)
[2024-05-02 19:02] LABS: Appearance,Urine Clear (Clear); Bilirubin,Urine Negative (Negative); Blood,Urine Negative (Negative); Color,Urine Colorless; Glucose,Urine (UA) Trace (Negative); Ketones,Urine Negative (Negative); Leukocyte Esterase,Urine Negative (Negative); Nitrite,Urine Negative (Negative); Protein,Urine Negative (Negative); Specific Gravity,Urine 1.008 (1.001-1.035); Urobilinogen,Urine <2.0 mg/dL (<2.0)
--- NOTE | 2024-05-02 19:22 | P.PN ---
Subjective Progress Note Date: 05/02/24 04/27/24 This is a 73-year-old white female who was admitted for acute respiratory failure with influenza A. She is currently on Airvo high flow oxygen and apparently went into atrial fibrillation last night. She remains on Cardizem drip this morning. She is still on consultation by cardiology and pulmonary critical care. She she complains of weakness and fatigue with shortness of breath but she denies any fever. She was assessed for anxiety and she states she has some irritability but anxiety is controlled. 04/28/2024 patient was seen lethargic today not very responsive on a BiPAP. She is currently in sinus rhythm and Cardizem drip has been stopped she had an episode of dark stool which was guaiac positive last p.m. her hemoglobin is 14.2 she does no signs of active bleeding and her vital signs are stable. Heparin was held because of the dark stool continue to monitor patient 04/29/2024 maintained on Tamiflu, BiPAP, 14/6, 40%,O2 sats mid to high 90s. Patient is currently full code with no intubation. Son at bedside, CODE STATUS further addressed as per PCP. Son wishes to discuss further with his family before making any changes. Afebrile, renal function stable. Vital signs stable, hemoglobin stable 14.1, no signs of active bleeding. 04/30/2024 continues on BiPAP 14/6 40% FiO2, maintaining O2 sats in the high 90s currently. Afebrile. CBC pending. Telemetry sinus rhythm. 05/01/2024 maintained on nebulized bronchodilators, IV steroids, Symbicort , transitioned to Airvo 65% FiO2. Maintaining O2 sats in the low 90s. Afebrile, Tmax 100.8. Reports easier breathing today, feels weak. Denies chest pain, palpitations. 05/02/[address] Posada for weekend coverage. Patient resting in bed family at the bedside. Has been continued on airvo now at 60/70 which has been increased over the last 24 hours. Also continues with intermittent fevers. Not having cough but still with congested ronchorous lung sounds. Chest xray today reveals similar cardiomegaly with scattered reticular opacities correlate for atypical pneumonia. White blood cell count today 5.9, sodium 135, potassium 5.1, BUN 27, creatinine 0.53. Hgb A1c 6.1. Urinalysis negative. Review of Systems Constitutional: Denied any fatigue denied any fever. Cardio vascular: denied any chest pain, palpitations Gastrointestinal: denied any nausea, vomiting, diarrhea Pulmonary: Denied any shortness of breath cough Neurologic denied any new focal deficits All inpatient medications were reviewed and appropriate changes in these medications as dictated in the interval history and assessment and plan. PHYSICAL EXAMINATION: GENERAL: The patient is alert and oriented x3, not in any acute distress. Well developed, well nourished. On airvo HEENT: Pupils are round and equally reacting to light. EOMI. No scleral icterus. No conjunctival pallor. Normocephalic, atraumatic. No pharyngeal erythema. No thyromegaly. CARDIOVASCULAR: S1 and S2 present. No murmurs, rubs, or gallops. PULMONARY: Scattered ronchi ABDOMEN: Soft, nontender, nondistended, normoactive bowel sounds. No palpable organomegaly. MUSCULOSKELETAL: No joint swelling or deformity. EXTREMITIES: No cyanosis, clubbing, or pedal edema. NEUROLOGICAL: Gross neurological examination did not reveal any focal deficits. Diffuse weakness SKIN: No rashes. Assessment and plan New onset atrial fibrillation with RVR now in normal sinus rhythm continues on oral metoprolol and has been transitioned to oral eliquis twice daily. IV heparin discontinued Acute hypoxemic respiratory failure secondary to acute COPD exacerbation and Acute influenza A infection Acute COPD exacerbation Acute influenza A infection with possible underlying bacterial pneumonia Troponin elevation from type II NM supply demand mismatch Hx hypertension Chronic nicotine use Steroid induced hyperglycemia with hemoglobin A1c of 6.1 GI prophylaxis DVT prophylaxis No Mechanical Intubation Plan Continue duonebs; symbicort Continue IV solumedrol Continue novolog sliding scale insulin and accuchecks ACHS, add small dose of levemir at HS for improved glycemic control Add doxycycline twice daily and check procalcitonin level Continue supportive care Pulmonary following closely Repeat BMP in the AM The impression and plan of care has been dictated by Rocio Batista Nurse Practitioner as directed. Dr. Brendon MD I have performed a history and physical examination and medical decision making of this patient, discussed the same with the dictator, and agree with the dictators assessment and plan as written, documented as a scribe. Based on total visit time, I have performed more than 50% of this visit. Objective - Vital Signs Vital signs: Vital Signs Temp 98.6 F 05/02/24 04:00 Pulse 56 L 05/02/24 04:00 Resp 16 05/02/24 04:00 BP 135/68 05/02/24 04:00 Pulse Ox 93 L 05/02/24 04:00 FiO2 70 05/02/24 07:21 Intake & Output 05/01/24 05/02/24 05/02/24 18:59 06:59 18:59 Intake Total 480 540 180 Output Total 200 Balance 280 540 180 Weight 81.5 kg Intake: Oral 480 540 180 Output: Urine 200 Other: Voiding Method Incontinent Incontinent # Voids 2 1 - Labs CBC & Chem 7: 05/02/24 06:08 05/02/24 06:08 Labs: Abnormal Lab Results - Last 24 Hours (Table) 05/01/24 05/01/24 05/01/24 Range/Units 11:57 16:34 20:18 Plt Count (150-450) k/uL Lymphocytes # (Manual) (1.0-4.8) k/uL Sodium (137-145) mmol/L Chloride (98-107) mmol/L Carbon Dioxide (22-30) mmol/L BUN (7-17) mg/dL Glucose (74-99) mg/dL POC Glucose (mg/dL) 164 H 172 H 266 H (70-110) mg/dL 05/02/24 05/02/24 05/02/24 Range/Units 06:07 06:08 06:08 Plt Count 107 L (150-450) k/uL Lymphocytes # (Manual) 0.94 L (1.0-4.8) k/uL Sodium 135 L (137-145) mmol/L Chloride 94 L (98-107) mmol/L Carbon Dioxide 34 H (22-30) mmol/L BUN 27 H (7-17) mg/dL Glucose 145 H (74-99) mg/dL POC Glucose (mg/dL) 141 H (70-110) mg/dL Assessment and Plan Time with Patient: Less than 30
[2024-05-02 20:19] LABS: Glucose,Whole Blood 181 mg/dL (70-110)
[2024-05-02] MEDS: INSULIN DETEMIR (LEVEMIR) 100 UNIT/ML SYR SQ SCH (21:01)
[2024-05-03 06:25] LABS: Glucose,Whole Blood 146 mg/dL (70-110)
[2024-05-03 09:30] LABS: African American GFR (CKD) >90 (>60 ml/min/1.73 sqM); Blood Urea Nitrogen 24 mg/dL (7-17); Chloride 91 mmol/L (98-107); Glucose 173 mg/dL (74-99); Non-African American GFR(CKD) >90 (>60 ml/min/1.73 sqM); Potassium 4.7 mmol/L (3.5-5.1); Sodium 135 mmol/L (137-145)
[2024-05-03 09:36] LABS: Anion Gap 6 mmol/L
[2024-05-03 10:39] LABS: Carbon Dioxide 38 mmol/L (22-30)
[2024-05-03 11:13] LABS: Glucose,Whole Blood 156 mg/dL (70-110)
--- NOTE | 2024-05-03 12:09 | P.PN ---
Subjective Progress Note Date: 05/03/24 Principal diagnosis: COPD exacerbation, influenza A infection. This is a pleasant 73-year-old female patient with a known history of hypertension and chronic obstructive pulmonary disease, chronic and ongoing tobacco dependence of greater than 40 years who presented to the emergency room last evening with a 2 to 3-day history of increasing shortness of breath, cough and congestion. She was found to be hypoxemic and placed on 6 L high flow nasal cannula. Chest x-ray showed no acute pulmonary process. White count 7.9. Hemoglobin 14.9. Platelets 140. INR 1.0. D-dimer 0.56. Sodium 137. Potassium 5.0. Bicarb 28. BUN 15. Creatinine 0.71. Troponin 0.222, 0.262. Procalcitonin negative at 0.10. Viral screen is positive for influenza A. She was initiated on a heparin drip. She is seen today in consultation in the emergency department. She is currently sitting up on a stretcher. Awake and alert in no acute distress. She does have a dry nonproductive cough. Her main complaint is that of fatigue today. She is remains hypoxic now requiring 12 L high flow nasal cannula to maintain O2 saturation in the low 90s. Progress note dated April 27, 2024. 73-year-old female who was seen in consultation yesterday. Please see the note above. The patient is seen today in room 372. She continues on Airvo, with settings of 60 L/min, and FiO2 of 60%. She is getting saline at 5 cc an hour, and Cardizem drip at 5 mg an hour. She also continues on IV heparin. She apparently took her AIRVO device off, and her saturations on room air are only 84%. They did recover, once Airvo was placed back on the patient. Current labs include a white count of 10.9, hemoglobin 14.5, hematocrit 46.5, and a platelet count of 142,000. PTT is 53.6. Sodium 134, potassium 4.8, chlorides 99, CO2 32, BUN 22, creatinine 0.72. AST was 47. ALT is 36. Procalcitonin level was 0.10 and repeat was 0.07. Chest x-ray shows no acute pulmonary process. Progress note dated April 28, 2024. 73-year-old female seen today in room 372. The patient continues on BiPAP, with settings of 14/6, and 40%. She is getting saline at 20 cc an hour. The patient did test positive for influenza. Current laboratory data includes a white count 7.4, hemoglobin 14.1, hematocrit 47, and a platelet count of 122,000. Blood gases were done and show pO2 of 101, pCO2 of 81, pH of 7.25. They were done on 55% oxygen. Sodium 137, potassium 5.2, chlorides 101, CO2 33, BUN 31, creatinine 0.76. Glucose 130. Albumin is 3.2. A chest x-ray today shows no acute pulmonary process. Progress note dated April 29, 2024. 73-year-old female seen today in room 372. The patient is currently on BiPAP, with settings of 14/6, and 40%. She continues on Tamiflu. The patient is a DO NOT INTUBATE patient. Labs today are reviewed. Sodium 141, potassium 4.7, chlorides 100, CO2 36, BUN 23, and creatinine 0.64. Calcium is 8.8. Glucose is 88. Chest x-ray from yesterday, does not show an acute pulmonary process. Progress note dated April 30, 2024. 73-year-old female seen today in room 372. The patient is currently on Airvo, with settings of 50 L/min and an FiO2 of 65%. When not on Airvo, the patient is on BiPAP, with settings of 14/6, and 40%. The patient is not receiving any IV fluids. The patient is a DO NOT INTUBATE patient. Current laboratory data includes a white count 3.4, hemoglobin 13.4, hematocrit 43.9, and a platelet count of 107,000. No additional laboratory data as noted. Progress note dated May 01, 2024. 73-year-old female seen today in room 372. The patient is currently on Airvo, with settings of 50 L/min, and an FiO2 60%. She did spend a small amount of time on BiPAP, yesterday. The patient is not receiving any IV fluids. She is sitting in a chair next to the hospital bed. She actually looks relatively comfortable. The patient is a full code, with instructions, including not to be intubated. No new labs today, other than a glucose of 164. Progress note dated May 02, 2024. 73-year-old female seen today in room 372. The patient continues on Airvo, 60 L/min, with an FiO2 of 70%. No IV fluids. The patient is resting comfortably in bed. She does not appear to have any shortness of breath or difficulty breathing. Current laboratory data includes a white count 5.9, hemoglobin 13.7, hematocrit 43.7, and a platelet count of 107,000. Sodium 135, potassium 5.1, chlorides 94, CO2 34, BUN 27, and creatinine 0.53. Glucose is 275. Calcium 8.8. Hemoglobin A1c 6.1. Chest x-ray shows cardiomegaly, with scattered reticu lar opacities, consistent with atypical pneumonia. Progress note dated May 03, 2024. 73-year-old female seen today in room 372. The patient continues on Airvo, with settings of 60 L/min, and FiO2 70%. The patient was admitted with a COPD exacerbation, triggered or exacerbated by influenza A. Clinically, she is doing about the same. She is laying flat in bed. No respiratory distress. L aboratory data includes a sodium 135, potassium 4.7, 31, CO2 38, anion gap 6, BUN 24, and creatinine 0.6. Glucose is 156. Calcium is 9. X-ray from yesterday, has been reviewed, as above. Objective - Vital Signs Vital signs: Vital Signs Temp 98.4 F 05/03/24 11:22 Pulse 53 L 05/03/24 11:22 Resp 16 05/03/24 11:22 BP 151/76 05/03/24 11:22 Pulse Ox 97 05/03/24 11:22 FiO2 65 05/03/24 08:54 Intake & Output 05/02/24 05/03/24 05/03/24 18:59 06:59 18:59 Intake Total 540 Output Total 120 0 Balance 420 0 Weight 67 kg Intake: Oral 540 Output: Urine 120 0 Other: Voiding Method Incontinent Incontinent # Voids 1 1 - Exam No acute distress, somnolent/lethargic. Airvo nasal cannula in place. HEENT examination is grossly unremarkable. Mucous membranes are moist. No oral lesions. Neck supple. Full range of motion. No adenopathy thyromegaly or neck vein distention. Cardiovascular examination reveals regular rhythm rate. S1-S2 normal. No S3 or S4. No discernible murmur noted. Heart sounds are distant. Lungs reveal bilateral expiratory wheezes and rhonchi. No crackles. Breath sounds are equal bilaterally. Abdomen soft bowel sounds are heard. No masses or tenderness. Extremities are intact. No cyanosis clubbing or edema. Skin is without rash or lesion. Neurologic examination is brief but nonfocal. - Labs CBC & Chem 7: 05/02/24 06:08 05/03/24 08:37 Labs: Abnormal Lab Results - Last 24 Hours (Table) 05/02/24 05/02/24 05/02/24 Range/Units 16:09 16:37 20:16 Sodium (137-145) mmol/L Chloride (98-107) mmol/L Carbon Dioxide (22-30) mmol/L BUN (7-17) mg/dL Glucose (74-99) mg/dL POC Glucose (mg/dL) 229 H 181 H (70-110) mg/dL Urine Glucose (UA) Trace H (Negative) 05/03/24 05/03/24 05/03/24 Range/Units 06:23 08:37 11:11 Sodium 135 L (137-145) mmol/L Chloride 91 L (98-107) mmol/L Carbon Dioxide 38 H (22-30) mmol/L BUN 24 H (7-17) mg/dL Glucose 173 H (74-99) mg/dL POC Glucose (mg/dL) 146 H 156 H (70-110) mg/dL Urine Glucose (UA) (Negative) Assessment and Plan Assessment: Acute hypoxic respiratory failure secondary to an acute exacerbation of chronic obstructive pulmonary disease complicated by influenza A. Acute influenza A infection. Troponin leak, currently on a heparin drip. Chronic and ongoing tobacco dependence of greater than 40 years. Chronic obstructive pulmonary disease, not on treatment in the outpatient setting. Hypertension. Plan: Plan dated April 27, 2024. The patient is seen today in room 372. She is currently on Airvo, with settings of 60 L/min, and FiO2 of 60%. The patient is also receiving saline at 5 cc an hour, a Cardizem drip at 5 mg an hour, and IV heparin, with monitoring of her PTT. She took her Airvo cannula off, and her saturations dropped down to 84%. All labs, x-rays, and medications are reviewed. The patient continues on a ppropriate bronchodilators, prednisone, and Tamiflu. We will continue to follow make recommendations along the way. A total of 50 minutes was spent on this patient, in the process of interviewing her, examining her, and reviewing pertinent laboratory data, x-rays, and medications. In addition, we discussed the diagnosis, treatments, and prognosis of this patient with the nursing staff, and the patient themselves. Plan dated April 28, 2024. The patient is seen today in room 372. The patient currently is on BiPAP, with settings of 14/6, and 40%. She is getting saline at 20 cc an hour. Yesterday, she was on Airvo. All labs, x-rays, and medications are reviewed. The patient's overall prognosis remains very poor. A total of 50 minutes was spent on this patient, in the process of interviewing her, examining her, and reviewing pertinent laboratory data, x-rays, and medications. In addition, we discussed the diagnosis, treatment, prognosis, with the patient's family, and bedside nurse. Plan dated April 29, 2024. The patient is seen today in room 372. The patient does continue on BiPAP, with settings of 14/6, and 40%. The patient also continues on Tamiflu. The patient appears not to be receiving any IV fluids. All labs, x-rays, and medications are reviewed. We will continue to follow the patient, make recommendations along the way. 50 minutes was spent, on this patient, interviewing her, examining her, and reviewing pertinent laboratory data, x-rays, and medications. In addition, we discussed the diagnosis, treatment, prognosis, up with the patient, and the patient's bedside nurse. Prognosis is guarded. She is a DO NOT INTUBATE patient. Plan dated April 30, 2024. The patient is seen again today in room 372. The patient has been primarily on BiPAP, but today she is on Airvo, with settings of 50 L/min, and an FiO2 of 65%. Labs, x-rays, and all medications are reviewed. The patient is a DO NOT INTUBATE patient. We will continue to follow the patient, make recommendations along the way. The patient is overall prognosis remains guarded. 50 minutes was spent with this patient, which included taking the history, examining the patient, reviewing pertinent laboratory data, x-rays, and medications, as well as discussing the diagnosis, treatment, and prognosis, with the patient, and the patient's nursing staff. Dictation was produced using [employer] dictation software. Please excuse any grammatical, word or spelling errors. Plan dated May 01, 2024. The patient is again seen today in room 372. The patient has been primarily on Airvo since yesterday according to respiratory therapy. Her Airvo settings include 50 L/min, with an FiO2 of 60%. She was on BiPAP yesterday, briefly. She is not receiving any IV fluids. Labs, x-rays, and all medications are reviewed. The patient is a DO NOT INTUBATE patient. 50 minutes was spent with this patient, including time obtaining her history, examining the patient, reviewing pertinent laboratory data, x-rays, medications, as well as discussing the diagnosis, treatment, prognosis, with the patient, and nursing staff. Overall prognosis remains guarded. We will continue to follow. Dictation was produced using [employer] software. Please excuse any grammatical, word or spelling errors. Plan dated May 02, 2024. The patient is seen today in room 372. She continues on Airvo, with settings of 60 L/min, and FiO2 70%. She is not receiving any IV fluids. Chest x-ray shows similar findings, consistent with atypical pneumonia. Labs, x-rays, and medications are reviewed. The patient is a DO NOT INTUBATE patient. 50 minutes was spent, with this patient, including time obtaining additional history, examining the patient, reviewing pertinent laboratory data, x-rays, and medications, as well as discussing the diagnosis, treatment, and prognosis, with the patient, the patient's bedside nurse. Dictation was produced using [employer] software. Please excuse any grammatical, word or spelling errors. Plan dated May 03, 2024. The patient continues to do about the same. She continues on Airvo, with settings of 60 L/min, and FiO2 of 70%. The patient is not receiving any IV fluids. Chest x-ray from yesterday has been reviewed. All laboratory data, x- rays, and medications have been reviewed. We will continue to follow, make recommendations where appropriate. 50 minutes was spent with this patient, including time obtaining additional history, examining the patient, reviewing pertinent laboratory data, x-rays, medications, as well as discussing the diagnosis, treatment, prognosis, with the patient, and the patient's bedside nurse. Dictation was produced using [employer] dictation software. Please excuse any grammatical, word or spelling errors. Time with Patient: Greater than 30
--- NOTE | 2024-05-03 13:03 | P.PN ---
Subjective Progress Note Date: 05/03/24 04/27/24 This is a 73-year-old white female who was admitted for acute respiratory failure with influenza A. She is currently on Airvo high flow oxygen and apparently went into atrial fibrillation last night. She remains on Cardizem drip this morning. She is still on consultation by cardiology and pulmonary critical care. She she complains of weakness and fatigue with shortness of breath but she denies any fever. She was assessed for anxiety and she states she has some irritability but anxiety is controlled. 04/28/2024 patient was seen lethargic today not very responsive on a BiPAP. She is currently in sinus rhythm and Cardizem drip has been stopped she had an episode of dark stool which was guaiac positive last p.m. her hemoglobin is 14.2 she does no signs of active bleeding and her vital signs are stable. Heparin was held because of the dark stool continue to monitor patient 04/29/2024 maintained on Tamiflu, BiPAP, 14/6, 40%,O2 sats mid to high 90s. Patient is currently full code with no intubation. Son at bedside, CODE STATUS further addressed as per PCP. Son wishes to discuss further with his family before making any changes. Afebrile, renal function stable. Vital signs stable, hemoglobin stable 14.1, no signs of active bleeding. 04/30/2024 continues on BiPAP 14/6 40% FiO2, maintaining O2 sats in the high 90s currently. Afebrile. CBC pending. Telemetry sinus rhythm. 05/01/2024 maintained on nebulized bronchodilators, IV steroids, Symbicort , transitioned to Airvo 65% FiO2. Maintaining O2 sats in the low 90s. Afebrile, Tmax 100.8. Reports easier breathing today, feels weak. Denies chest pain, palpitations. 05/02/[address] Posada for weekend coverage. Patient resting in bed family at the bedside. Has been continued on airvo now at 60/70 which has been increased over the last 24 hours. Also continues with intermittent fevers. Not having cough but still with congested ronchorous lung sounds. Chest xray today reveals similar cardiomegaly with scattered reticular opacities correlate for atypical pneumonia. White blood cell count today 5.9, sodium 135, potassium 5.1, BUN 27, creatinine 0.53. Hgb A1c 6.1. Urinalysis negative. 05/03/2023 Patient is evaluated in follow-up on the medical floor. She is currently sitt ing up at the bedside and is standing improving to the bedside commode. She remains on Airvo with 60/65 and is unable to be weaned and she desaturates quickly. She is continued on IV Solu-Medrol and oral doxycycline. Review of Systems Constitutional: Denied any fatigue denied any fever. Cardio vascular: denied any chest pain, palpitations Gastrointestinal: denied any nausea, vomiting, diarrhea Pulmonary: Denied any shortness of breath cough Neurologic denied any new focal deficits All inpatient medications were reviewed and appropriate changes in these medications as dictated in the interval history and assessment and plan. PHYSICAL EXAMINATION: GENERAL: The patient is alert and oriented x3, not in any acute distress. Well developed, well nourished. On airvo HEENT: Pupils are round and equally reacting to light. EOMI. No scleral icterus. No conjunctival pallor. Normocephalic, atraumatic. No pharyngeal erythema. No thyromegaly. CARDIOVASCULAR: S1 and S2 present. No murmurs, rubs, or gallops. PULMONARY: Scattered ronchi ABDOMEN: Soft, nontender, nondistended, normoactive bowel sounds. No palpable organomegaly. MUSCULOSKELETAL: No joint swelling or deformity. EXTREMITIES: No cyanosis, clubbing, or pedal edema. NEUROLOGICAL: Gross neurological examination did not reveal any focal deficits. Diffuse weakness SKIN: No rashes. Assessment and plan New onset atrial fibrillation with RVR now in normal sinus rhythm continues on oral metoprolol and has been transitioned to oral eliquis twice daily. IV heparin discontinued Acute hypoxemic respiratory failure secondary to acute COPD exacerbation and Acute influenza A infection Acute COPD exacerbation Acute influenza A infection with possible underlying bacterial pneumonia Troponin elevation from type II VT supply demand mismatch Hx hypertension Chronic nicotine use Steroid induced hyperglycemia with hemoglobin A1c of 6.1 GI prophylaxis DVT prophylaxis No Mechanical Intubation Plan Continue duonebs; symbicort Continue IV solumedrol Continue novolog sliding scale insulin and accuchecks ACHS, add small dose of levemir at HS for improved glycemic control Add doxycycline twice daily and check procalcitonin level Continue supportive care Pulmonary following closely Repeat BMP in the AM The impression and plan of care has been dictated by Rocio Batista, Nurse Practitioner as directed. Dr. Brendon MD I have performed a history and physical examination and medical decision making of this patient, discussed the same with the dictator, and agree with the dictators assessment and plan as written, documented as a scribe. Based on total visit time, I have performed more than 50% of this visit. Objective - Vital Signs Vital signs: Vital Signs Temp 98.4 F 05/03/24 08:16 Pulse 60 05/03/24 09:04 Resp 24 05/03/24 08:16 BP 156/75 05/03/24 08:16 Pulse Ox 98 05/03/24 08:54 FiO2 65 05/03/24 08:54 Intake & Output 05/02/24 05/03/24 05/03/24 18:59 06:59 18:59 Intake Total 540 Output Total 120 0 Balance 420 0 Weight 67 kg Intake: Oral 540 Output: Urine 120 0 Other: Voiding Method Incontinent Incontinent # Voids 1 - Labs CBC & Chem 7: 05/02/24 06:08 05/03/24 08:37 Labs: Abnormal Lab Results - Last 24 Hours (Table) 05/02/24 05/02/24 05/02/24 Range/Units 06:08 11:01 16:09 POC Glucose (mg/dL) 275 H 229 H (70-110) mg/dL Hemoglobin A1c 6.1 H (<=6.0) % Urine Glucose (UA) (Negative) 05/02/24 05/02/24 05/03/24 Range/Units 16:37 20:16 06:23 POC Glucose (mg/dL) 181 H 146 H (70-110) mg/dL Hemoglobin A1c (<=6.0) % Urine Glucose (UA) Trace H (Negative) Assessment and Plan Time with Patient: Less than 30
[2024-05-03 16:10] LABS: Glucose,Whole Blood 150 mg/dL (70-110)
[2024-05-03 20:25] LABS: Glucose,Whole Blood 189 mg/dL (70-110)
[2024-05-04 06:10] LABS: Glucose,Whole Blood 146 mg/dL (70-110)
[2024-05-04 08:17] LABS: African American GFR (CKD) >90 (>60 ml/min/1.73 sqM); Blood Urea Nitrogen 27 mg/dL (7-17); Calcium 9.1 mg/dL (8.4-10.2); Chloride 92 mmol/L (98-107); Glucose 158 mg/dL (74-99); Non-African American GFR(CKD) >90 (>60 ml/min/1.73 sqM); Potassium 5.2 mmol/L (3.5-5.1); Sodium 133 mmol/L (137-145)
[2024-05-04 08:23] LABS: Anion Gap 2 mmol/L
[2024-05-04 08:38] LABS: Carbon Dioxide 39 mmol/L (22-30)
--- NOTE | 2024-05-04 11:38 | P.PN ---
Subjective Progress Note Date: 05/04/24 04/27/24 This is a 73-year-old white female who was admitted for acute respiratory failure with influenza A. She is currently on Airvo high flow oxygen and apparently went into atrial fibrillation last night. She remains on Cardizem drip this morning. She is still on consultation by cardiology and pulmonary critical care. She she complains of weakness and fatigue with shortness of breath but she denies any fever. She was assessed for anxiety and she states she has some irritability but anxiety is controlled. 04/28/2024 patient was seen lethargic today not very responsive on a BiPAP. She is currently in sinus rhythm and Cardizem drip has been stopped she had an episode of dark stool which was guaiac positive last p.m. her hemoglobin is 14.2 she does no signs of active bleeding and her vital signs are stable. Heparin was held because of the dark stool continue to monitor patient 04/29/2024 maintained on Tamiflu, BiPAP, 14/6, 40%,O2 sats mid to high 90s. Patient is currently full code with no intubation. Son at bedside, CODE STATUS further addressed as per PCP. Son wishes to discuss further with his family before making any changes. Afebrile, renal function stable. Vital signs stable, hemoglobin stable 14.1, no signs of active bleeding. 04/30/2024 continues on BiPAP 14/6 40% FiO2, maintaining O2 sats in the high 90s currently. Afebrile. CBC pending. Telemetry sinus rhythm. 05/01/2024 maintained on nebulized bronchodilators, IV steroids, Symbicort ,transitioned to Airvo 65% FiO2. Maintaining O2 sats in the low 90s. Afebrile, Tmax 100.8. Reports easier breathing today, feels weak. Denies chest pain, palpitations. 05/04/2024 Airvo decreased to 60% FiO2, maintaining O2 sats in the high 90s. Previous evaluation by PT reporting challenges with endurance ,recommending home care. Afebrile. Sodium 133, potassium 5.2, bicarb 39, BUN 27, creatinine 0.56. Blood sugars ranging from 146-189. Objective - Vital Signs Vital signs: Vital Signs Temp 97.5 F L 05/04/24 08:20 Pulse 56 L 05/04/24 08:44 Resp 18 05/04/24 08:20 BP 136/78 05/04/24 08:20 Pulse Ox 97 05/04/24 08:31 FiO2 59 05/04/24 08:31 Intake & Output 05/03/24 05/04/24 05/04/24 18:59 06:59 18:59 Intake Total 360 118 Output Total 100 Balance 360 18 Intake: Oral 360 118 Output: Urine 100 Other: Voiding Method Incontinent # Voids 2 2 # Bowel Movements 1 - Exam GENERAL: Pleasant and cooperative, alert and oriented x 3, wearing Airvo HEENT: Atraumatic, normocephalic. Pupils are equal, round. Sclerae anicteric. Conjunctivae are clear. Neck is supple. RESPIRATORY: Diminished breath sounds bilaterally with occasional scattered rhonchi CARDIOVASCULAR: S1, S2, regular rate and rhythm. GASTROINTESTINAL: Soft, nondistended, nontender. Positive bowel sounds INTEGUMENTARY: No cyanosis. No jaundice. No rashes noted. No cellulitis noted. EXTREMITIES: 2+ peripheral pulses. no edema, no cyanosis, no clubbing, no calf tenderness noted. NEUROLOGIC: Cranial nerves II-XII intact. No focal deficits,diffuse weakness. - Labs CBC & Chem 7: 05/02/24 06:08 05/04/24 05:51 Labs: Abnormal Lab Results - Last 24 Hours (Table) 05/03/24 05/03/24 05/04/24 Range/Units 16:08 20:17 05:51 Sodium 133 L (137-145) mmol/L Potassium 5.2 H (3.5-5.1) mmol/L Chloride 92 L (98-107) mmol/L Carbon Dioxide 39 H (22-30) mmol/L BUN 27 H (7-17) mg/dL Glucose 158 H (74-99) mg/dL POC Glucose (mg/dL) 150 H 189 H (70-110) mg/dL 05/04/24 Range/Units 06:09 Sodium (137-145) mmol/L Potassium (3.5-5.1) mmol/L Chloride (98-107) mmol/L Carbon Dioxide (22-30) mmol/L BUN (7-17) mg/dL Glucose (74-99) mg/dL POC Glucose (mg/dL) 146 H (70-110) mg/dL Microbiology - Last 24 Hours (Table) 05/02/24 14:20 Blood Culture - Preliminary Blood 05/02/24 18:30 Gram Stain - Preliminary Sputum Assessment and Plan Assessment: 1) Afib currently in sinus rhythm Current Visit: Yes Status: Acute Code(s): I48.91 - UNSPECIFIED ATRIAL FIBRILLATION SNOMED Code(s): 33830631 (2) Acute exacerbation of chronic obstructive pulmonary disease (COPD) Current Visit: Yes Status: Acute Code(s): J44.1 - CHRONIC OBSTRUCTIVE PULMONARY DISEASE W (ACUTE) EXACERBATION SNOMED Code(s): 474328341 (3) Influenza A Current Visit: Yes Status: Acute Code(s): J10.1 - FLU DUE TO OTH IDENT INFLUENZA VIRUS W OTH RESP MANIFEST SNOMED Code(s): 345911000 (4) NSTEMI (non-ST elevated myocardial infarction) Current Visit: Yes Status: Acute Code(s): I21.4 - NON-ST ELEVATION (NSTEMI) MYOCARDIAL INFARCTION SNOMED Code(s): 89370982 (5) acute hypoxic respiratory failure secondary to acute COPD exacerbation and influenza A. (6) thrombocytopenia Plan: Continue on current medication regimen ,monitoring and symptomatic treatment. Aggressive pulmonary toileting with nebulized bronchodilators, Symbicort and IV steroids. Beta-jihan and anticoagulation with Eliquis. Initially PT recommended home care, anticipate subacute rehab at discharge. PT/OT. The impression and plan of care has been dictated as directed. : I performed a history and examination of this patient, discussed the same with the dictator. I agree with the dictator's note ,documented as a scribe. Any additional findings or plans will be noted.
[2024-05-04 11:42] LABS: Glucose,Whole Blood 103 mg/dL (70-110)
[2024-05-04 16:58] LABS: Glucose,Whole Blood 162 mg/dL (70-110)
--- NOTE | 2024-05-04 20:04 | P.PN ---
Subjective Progress Note Date: 05/04/24 This is a pleasant 73-year-old female patient with a known history of hypertension and chronic obstructive pulmonary disease, chronic and ongoing tobacco dependence of greater than 40 years who presented to the emergency room last evening with a 2 to 3-day history of increasing shortness of breath, cough and congestion. She was found to be hypoxemic and placed on 6 L high flow nasal cannula. Chest x-ray showed no acute pulmonary process. White count 7.9. Hemoglobin 14.9. Platelets 140. INR 1.0. D-dimer 0.56. Sodium 137. Potassium 5.0. Bicarb 28. BUN 15. Creatinine 0.71. Troponin 0.222, 0.262. Procalcitonin negative at 0.10. Viral screen is positive for influenza A. She was initiated on a heparin drip. She is seen today in consultation in the emergency department. She is currently sitting up on a stretcher. Awake and alert in no acute distress. She does have a dry nonproductive cough. Her main complaint is that of fatigue today. She is remains hypoxic now requiring 12 L high flow nasal cannula to maintain O2 saturation in the low 90s. Progress note dated April 27, 2024. 73-year-old female who was seen in consultation yesterday. Please see the note above. The patient is seen today in room 372. She continues on Airvo, with settings of 60 L/min, and FiO2 of 60%. She is getting saline at 5 cc an hour, and Cardizem drip at 5 mg an hour. She also continues on IV heparin. She apparently took her AIRVO device off, and her saturations on room air are only 8 4%. They did recover, once Airvo was placed back on the patient. Current labs include a white count of 10.9, hemoglobin 14.5, hematocrit 46.5, and a platelet count of 142,000. PTT is 53.6. Sodium 134, potassium 4.8, chlorides 99, CO2 32, BUN 22, creatinine 0.72. AST was 47. ALT is 36. Procalcitonin level was 0.10 and repeat was 0.07. Chest x-ray shows no acute pulmonary process. Progress note dated April 28, 2024. 73-year-old female seen today in room 372. The patient continues on BiPAP, with settings of 14/6, and 40%. She is getting saline at 20 cc an hour. The patient did test positive for influenza. Current laboratory data includes a white count 7.4, hemoglobin 14.1, hematocrit 47, and a platelet count of 122,000. Blood gases were done and show pO2 of 101, pCO2 of 81, pH of 7.25. They were done on 55% oxygen. Sodium 137, potassium 5.2, chlorides 101, CO2 33, BUN 31, creatinine 0.76. Glucose 130. Albumin is 3.2. A chest x-ray today shows no acute pulmonary process. Progress note dated April 29, 2024. 73-year-old female seen today in room 372. The patient is currently on BiPAP, with settings of 14/6, and 40%. She continues on Tamiflu. The patient is a DO NOT INTUBATE patient. Labs today are reviewed. Sodium 141, potassium 4.7, chlorides 100, CO2 36, BUN 23, and creatinine 0.64. Calcium is 8.8. Glucose is 88. Chest x-ray from yesterday, does not show an acute pulmonary process. Progress note dated April 30, 2024. 73-year-old female seen today in room 372. The patient is currently on Airvo, with settings of 50 L/min and an FiO2 of 65%. When not on Airvo, the patient is on BiPAP, with settings of 14/6, and 40%. The patient is not receiving any IV fluids. The patient is a DO NOT INTUBATE patient. Current laboratory data includes a white count 3.4, hemoglobin 13.4, hematocrit 43.9, and a platelet count of 107,000. No additional laboratory data as noted. Progress note dated May 01, 2024. 73-year-old female seen today in room 372. The patient is currently on Airvo, with settings of 50 L/min, and an FiO2 60%. She did spend a small amount of time on BiPAP, yesterday. The patient is not receiving any IV fluids. She is sitting in a chair next to the hospital bed. She actually looks relatively comfortable. The patient is a full code, with instructions, including not to be intubated. No new labs today, other than a glucose of 164. Progress note dated May 02, 2024. 73-year-old female seen today in room 372. The patient continues on Airvo, 60 L/min, with an FiO2 of 70%. No IV fluids. The patient is resting comfortably in bed. She does not appear to have any shortness of breath or difficulty carlitos thing. Current laboratory data includes a white count 5.9, hemoglobin 13.7, hematocrit 43.7, and a platelet count of 107,000. Sodium 135, potassium 5.1, chlorides 94, CO2 34, BUN 27, and creatinine 0.53. Glucose is 275. Calcium 8.8. Hemoglobin A1c 6.1. Chest x-ray shows cardiomegaly, with scattered reticular opacities, consistent with atypical pneumonia. Progress note dated May 03, 2024. 73-year-old female seen today in room 372. The patient continues on Airvo, with settings of 60 L/min, and FiO2 70%. The patient was admitted with a COPD exacerbation, triggered or exacerbated by influenza A. Clinically, she is doing about the same. She is laying flat in bed. No respiratory distress. Laboratory data includes a sodium 135, potassium 4.7, 31, CO2 38, anion gap 6, BUN 24, and creatinine 0.6. Glucose is 156. Calcium is 9. X-ray from yesterday, has been reviewed, as above. On today's evaluation of 05/04/2024, the patient is being seen for a follow-up. This 73-year-old female patient remains quite hypoxic, still on Airvo at 60 L and FiO2 has been dropped down to 50%. Noted the patient is an acute COPD exacerbation. The same time, the patient was diagnosed having an acute influenza A infection. The patient remains on Airvo for oxygenation. The patient remains on Symbicort, DuoNeb treatments [id number] and the patient is also on IV Solu-Medrol 40 mg every 8 hours. Remains on Levemir insulin 10 units in addition to a sliding scale insulin coverage. Noted the patient is not oxygen dependent on outpatient basis. She is a chronic smoker. Blood work from today shows a BUN of 27 with a creatinine of 0.5. Sodium levels at 133, potassium is at 4.2, serum bicarb is at 39. Chloride level is at 92. The patient had a echocardiogram on 04/27/2024 that showed mild LVH with preserved systolic function. Chest x-ray from 05/02/2024 showed cardiomegaly with some scattered reticular opacities with possibility of a mild viral pneumonia. Objective - Vital Signs Vital signs: Vital Signs Temp 98.5 F 05/04/24 12:00 Pulse 50 L 05/04/24 12:00 Resp 18 05/04/24 12:00 BP 151/75 05/04/24 12:00 Pulse Ox 96 05/04/24 12:00 FiO2 60 05/04/24 12:29 Intake & Output 05/03/24 05/04/24 05/04/24 18:59 06:59 18:59 Intake Total 360 118 Output Total 100 Balance 360 18 Intake: Oral 360 118 Output: Urine 100 Other: Voiding Method Incontinent # Voids 2 2 # Bowel Movements 1 - Exam GENERAL EXAM: Alert, does not, weak 73-year-old female, on Airvo at 60 L and FiO2 of 50% HEAD: Normocephalic. EYES: Normal reaction of pupils, equal size. NOSE: Clear with pink turbinates. THROAT: No erythema or exudates. NECK: No masses, no JVD. CHEST: No chest wall deformity. LUNGS: Equal air entry with bilateral end expiratory wheeze, diminished. CVS: S1 and S2 normal with no audible murmur, regular rhythm. ABDOMEN: No hepatosplenomegaly, normal bowel sounds, no guarding or rigidity. SPINE: No scoliosis or deformity SKIN: No rashes CENTRAL NERVOUS SYSTEM: No focal deficits, tone is normal in all 4 extremities. EXTREMITIES: There is no peripheral edema. No clubbing, no cyanosis. Periphera l pulses are intact. - Labs CBC & Chem 7: 05/02/24 06:08 05/04/24 05:51 Labs: Abnormal Lab Results - Last 24 Hours (Table) 05/03/24 05/03/24 05/04/24 Range/Units 16:08 20:17 05:51 Sodium 133 L (137-145) mmol/L Potassium 5.2 H (3.5-5.1) mmol/L Chloride 92 L (98-107) mmol/L Carbon Dioxide 39 H (22-30) mmol/L BUN 27 H (7-17) mg/dL Glucose 158 H (74-99) mg/dL POC Glucose (mg/dL) 150 H 189 H (70-110) mg/dL 05/04/24 Range/Units 06:09 Sodium (137-145) mmol/L Potassium (3.5-5.1) mmol/L Chloride (98-107) mmol/L Carbon Dioxide (22-30) mmol/L BUN (7-17) mg/dL Glucose (74-99) mg/dL POC Glucose (mg/dL) 146 H (70-110) mg/dL Microbiology - Last 24 Hours (Table) 05/02/24 18:30 Gram Stain - Preliminary Sputum Sputum Culture - Preliminary 05/02/24 14:20 Blood Culture - Preliminary Blood Assessment and Plan Plan: Acute hypoxic respiratory failure secondary to an acute exacerbation of chronic obstructive pulmonary disease complicated by influenza A. Acute hypoxic respiratory failure currently on 6 L and FiO2 of 50% Acute influenza A infection. Atrial fibrillation with RVR, converted to sinus rhythm Acute non-STEMI type II with troponin leak, echocardiogram shows a preserved LV function Chronic and ongoing tobacco dependence of greater than 40 years. Chronic obstructive pulmonary disease, not on treatment in the outpatient setting. Hypertension. Plan: Titrate oxygen flow to maintain saturation above 90%, currently still on Airvo Continue DuoNeb nebulizer treatments [id number] Continue Symbicort IV Solu-Medrol 40 mg every 8 hours Provide the patient incentive spirometer Repeat chest x-ray in the morning Echo was noted Cardiac rhythm is sinus and the patient is currently on metoprolol 25 mg twice daily and anticoagulation with Eliquis 5 mg p.o. twice a day Levemir insulin 10 units nightly Sliding scale insulin coverage Will continue to follow
[2024-05-04 20:28] LABS: Glucose,Whole Blood 203 mg/dL (70-110)
[2024-05-05 06:23] LABS: Glucose,Whole Blood 132 mg/dL (70-110)
--- NOTE | 2024-05-05 08:27 | XR ---
EXAMINATION TYPE: XR chest 1V DATE OF EXAM: 05/05/2024 6:49 AM COMPARISON: None. CLINICAL INDICATION: Female, 73 years old with history of Pneumonia, TECHNIQUE: XR chest 1V view(s) obtained. FINDINGS: The heart size is normal. The pulmonary vasculature is normal. There is some slight increased linear opacities in the lung apices. On the right this can be suggesti ve for small right apical pneumothorax. Bibasilar infiltrates are present slightly greater on the left. IMPRESSION: 1. Correlate for small right apical pneumothorax. 2. Mild bibasilar infiltrates. Subsegmental atelectasis or developing pneumonia could be considered [facility], , 05/05/2024 8:25 AM
[2024-05-05 10:54] LABS: African American GFR (CKD) >90 (>60 ml/min/1.73 sqM); Blood Urea Nitrogen 24 mg/dL (7-17); Calcium 9.3 mg/dL (8.4-10.2); Chloride 88 mmol/L (98-107); Glucose 157 mg/dL (74-99); Non-African American GFR(CKD) >90 (>60 ml/min/1.73 sqM); Sodium 135 mmol/L (137-145)
[2024-05-05 11:02] LABS: Anion Gap 5 mmol/L
[2024-05-05 11:09] LABS: Carbon Dioxide 42 mmol/L (22-30)
[2024-05-05 11:43] LABS: Glucose,Whole Blood 128 mg/dL (70-110)
--- NOTE | 2024-05-05 12:36 | P.PN ---
Subjective Progress Note Date: 05/05/24 04/27/24 This is a 73-year-old white female who was admitted for acute respiratory failure with influenza A. She is currently on Airvo high flow oxygen and apparently went into atrial fibrillation last night. She remains on Cardizem drip this morning. She is still on consultation by cardiology and pulmonary critical care. She she complains of weakness and fatigue with shortness of breath but she denies any fever. She was assessed for anxiety and she states she has some irritability but anxiety is controlled. 04/28/2024 patient was seen lethargic today not very responsive on a BiPAP. She is currently in sinus rhythm and Cardizem drip has been stopped she had an episode of dark stool which was guaiac positive last p.m. her hemoglobin is 14.2 she does no signs of active bleeding and her vital signs are stable. Heparin was held because of the dark stool continue to monitor patient 04/29/2024 maintained on Tamiflu, BiPAP, 14/6, 40%,O2 sats mid to high 90s. Patient is currently full code with no intubation. Son at bedside, CODE STATUS further addressed as per PCP. Son wishes to discuss further with his family before making any changes. Afebrile, renal function stable. Vital signs stable, hemoglobin stable 14.1, no signs of active bleeding. 04/30/2024 continues on BiPAP 14/6 40% FiO2, maintaining O2 sats in the high 90s currently. Afebrile. CBC pending. Telemetry sinus rhythm. 05/01/2024 maintained on nebulized bronchodilators, IV steroids, Symbicort ,transitioned to Airvo 65% FiO2. Maintaining O2 sats in the low 90s. Afebrile, Tmax 100.8. Reports easier breathing today, feels weak. Denies chest pain, palpitations. 05/04/2024 Airvo decreased to 60% FiO2, maintaining O2 sats in the high 90s. Previous evaluation by PT reporting challenges with endurance ,recommending home care. Afebrile. Sodium 133, potassium 5.2, bicarb 39, BUN 27, creatinine 0.56. Blood sugars ranging from 146-189. 05/05/2024 Airvo 70% FiO2, maintaining O2 sats in the high 90s. Chest x-ray pending. Afebrile. Objective - Vital Signs Vital signs: Vital Signs Temp 98.4 F 05/05/24 07:55 Pulse 64 05/05/24 08:55 Resp 21 05/05/24 07:55 BP 149/75 05/05/24 07:55 Pulse Ox 97 05/05/24 08:41 FiO2 70 05/05/24 08:41 Intake & Output 05/04/24 05/05/24 05/05/24 18:59 06:59 18:59 Intake Total 354 Output Total 100 150 200 Balance 254 -150 -200 Weight 67 kg 77.4 kg Intake: Oral 354 Output: Urine 100 150 200 Other: # Voids 1 # Bowel Movements 0 - Exam GENERAL: Sitting up in bed, alert and oriented x 3, wearing Airvo HEENT: Atraumatic, normocephalic. Pupils are equal, round. Sclerae anicteric. Conjunctivae are clear. Neck is supple, no JVD. RESPIRATORY: Diminished breath sounds bilaterally with scattered rhonchi and expiratory wheeze. CARDIOVASCULAR: S1, S2, regular rate and rhythm. GASTROINTESTINAL: Soft, nondistended, nontender. Positive bowel sounds INTEGUMENTARY: No cyanosis. No jaundice. No rashes noted. EXTREMITIES: 2+ peripheral pulses. no edema, no cyanosis, no clubbing, no calf tenderness noted. NEUROLOGIC: Cranial nerves II-XII intact. No focal deficits,diffuse weakness. - Labs CBC & Chem 7: 05/02/24 06:08 05/05/24 10:12 Labs: Abnormal Lab Results - Last 24 Hours (Table) 05/04/24 05/04/24 05/05/24 Range/Units 16:57 20:12 06:20 POC Glucose (mg/dL) 162 H 203 H 132 H (70-110) mg/dL Microbiology - Last 24 Hours (Table) 05/02/24 18:30 Gram Stain - Final Sputum Sputum Culture - Final 05/02/24 14:20 Blood Culture - Preliminary Blood Assessment and Plan Assessment: 1) Afib currently in sinus rhythm Current Visit: Yes Status: Acute Code(s): I48.91 - UNSPECIFIED ATRIAL FIBRILLATION SNOMED Code(s): 26831622 (2) Acute exacerbation of chronic obstructive pulmonary disease (COPD) Current Visit: Yes Status: Acute Code(s): J44.1 - CHRONIC OBSTRUCTIVE PULMONARY DISEASE W (ACUTE) EXACERBATION SNOMED Code(s): 019748557 (3) Influenza A Current Visit: Yes Status: Acute Code(s): J10.1 - FLU DUE TO OTH IDENT INFLUENZA VIRUS W OTH RESP MANIFEST SNOMED Code(s): 162582958 (4) NSTEMI (non-ST elevated myocardial infarction) Current Visit: Yes Status: Acute Code(s): I21.4 - NON-ST ELEVATION (NSTEMI) MYOCARDIAL INFARCTION SNOMED Code(s): 17545606 (5) acute hypoxic respiratory failure secondary to acute COPD exacerbation and influenza A. (6) thrombocytopenia Plan: Continue on current medication regimen ,monitoring and symptomatic treatment. Following closely with pulmonary. maintain aggressive pulmonary toileting with nebulized bronchodilators, Symbicort and IV steroids. Beta- jihan and anticoagulation with Eliquis. PT. up in chair for meals. The impression and plan of care has been dictated as directed. : I performed a history and examination of this patient, discussed the same with the dictator. I agree with the dictator's note ,documented as a scribe. Any additional findings or plans will be noted.
[2024-05-05 16:34] LABS: Glucose,Whole Blood 243 mg/dL (70-110)
--- NOTE | 2024-05-05 18:53 | P.PN ---
Subjective Progress Note Date: 05/05/24 This is a pleasant 73-year-old female patient with a known history of hypertension and chronic obstructive pulmonary disease, chronic and ongoing tobacco dependence of greater than 40 years who presented to the emergency room last evening with a 2 to 3-day history of increasing shortness of breath, cough and congestion. She was found to be hypoxemic and placed on 6 L high flow nasal cannula. Chest x-ray showed no acute pulmonary process. White count 7.9. Hemoglobin 14.9. Platelets 140. INR 1.0. D-dimer 0.56. Sodium 137. Potassium 5.0. Bicarb 28. BUN 15. Creatinine 0.71. Troponin 0.222, 0.262. Procalcitonin negative at 0.10. Viral screen is positive for influenza A. She was initiated on a heparin drip. She is seen today in consultation in the emergency department. She is currently sitting up on a stretcher. Awake and alert in no acute distress. She does have a dry nonproductive cough. Her main complaint is that of fatigue today. She is remains hypoxic now requiring 12 L high flow nasal cannula to maintain O2 saturation in the low 90s. Progress note dated April 27, 2024. 73-year-old female who was seen in consultation yesterday. Please see the note above. The patient is seen today in room 372. She continues on Airvo, with settings of 60 L/min, and FiO2 of 60%. She is getting saline at 5 cc an hour, and Cardizem drip at 5 mg an hour. She also continues on IV heparin. She apparently took her AIRVO device off, and her saturations on room air are only 8 4%. They did recover, once Airvo was placed back on the patient. Current labs include a white count of 10.9, hemoglobin 14.5, hematocrit 46.5, and a platelet count of 142,000. PTT is 53.6. Sodium 134, potassium 4.8, chlorides 99, CO2 32, BUN 22, creatinine 0.72. AST was 47. ALT is 36. Procalcitonin level was 0.10 and repeat was 0.07. Chest x-ray shows no acute pulmonary process. Progress note dated April 28, 2024. 73-year-old female seen today in room 372. The patient continues on BiPAP, with settings of 14/6, and 40%. She is getting saline at 20 cc an hour. The patient did test positive for influenza. Current laboratory data includes a white count 7.4, hemoglobin 14.1, hematocrit 47, and a platelet count of 122,000. Blood gases were done and show pO2 of 101, pCO2 of 81, pH of 7.25. They were done on 55% oxygen. Sodium 137, potassium 5.2, chlorides 101, CO2 33, BUN 31, creatinine 0.76. Glucose 130. Albumin is 3.2. A chest x-ray today shows no acute pulmonary process. Progress note dated April 29, 2024. 73-year-old female seen today in room 372. The patient is currently on BiPAP, with settings of 14/6, and 40%. She continues on Tamiflu. The patient is a DO NOT INTUBATE patient. Labs today are reviewed. Sodium 141, potassium 4.7, chlorides 100, CO2 36, BUN 23, and creatinine 0.64. Calcium is 8.8. Glucose is 88. Chest x-ray from yesterday, does not show an acute pulmonary process. Progress note dated April 30, 2024. 73-year-old female seen today in room 372. The patient is currently on Airvo, with settings of 50 L/min and an FiO2 of 65%. When not on Airvo, the patient is on BiPAP, with settings of 14/6, and 40%. The patient is not receiving any IV fluids. The patient is a DO NOT INTUBATE patient. Current laboratory data includes a white count 3.4, hemoglobin 13.4, hematocrit 43.9, and a platelet count of 107,000. No additional laboratory data as noted. Progress note dated May 01, 2024. 73-year-old female seen today in room 372. The patient is currently on Airvo, with settings of 50 L/min, and an FiO2 60%. She did spend a small amount of time on BiPAP, yesterday. The patient is not receiving any IV fluids. She is sitting in a chair next to the hospital bed. She actually looks relatively comfortable. The patient is a full code, with instructions, including not to be intubated. No new labs today, other than a glucose of 164. Progress note dated May 02, 2024. 73-year-old female seen today in room 372. The patient continues on Airvo, 60 L/min, with an FiO2 of 70%. No IV fluids. The patient is resting comfortably in bed. She does not appear to have any shortness of breath or difficulty carlitos thing. Current laboratory data includes a white count 5.9, hemoglobin 13.7, hematocrit 43.7, and a platelet count of 107,000. Sodium 135, potassium 5.1, chlorides 94, CO2 34, BUN 27, and creatinine 0.53. Glucose is 275. Calcium 8.8. Hemoglobin A1c 6.1. Chest x-ray shows cardiomegaly, with scattered reticular opacities, consistent with atypical pneumonia. Progress note dated May 03, 2024. 73-year-old female seen today in room 372. The patient continues on Airvo, with settings of 60 L/min, and FiO2 70%. The patient was admitted with a COPD exacerbation, triggered or exacerbated by influenza A. Clinically, she is doing about the same. She is laying flat in bed. No respiratory distress. Laboratory data includes a sodium 135, potassium 4.7, 31, CO2 38, anion gap 6, BUN 24, and creatinine 0.6. Glucose is 156. Calcium is 9. X-ray from yesterday, has been reviewed, as above. On today's evaluation of 05/04/2024, the patient is being seen for a follow-up. This 73-year-old female patient remains quite hypoxic, still on Airvo at 60 L and FiO2 has been dropped down to 50%. Noted the patient is an acute COPD exacerbation. The same time, the patient was diagnosed having an acute influenza A infection. The patient remains on Airvo for oxygenation. The patient remains on Symbicort, DuoNeb treatments [id number] and the patient is also on IV Solu-Medrol 40 mg every 8 hours. Remains on Levemir insulin 10 units in addition to a sliding scale insulin coverage. Noted the patient is not oxygen dependent on outpatient basis. She is a chronic smoker. Blood work from today shows a BUN of 27 with a creatinine of 0.5. Sodium levels at 133, potassium is at 4.2, serum bicarb is at 39. Chloride level is at 92. The patient had a echocardiogram on 04/27/2024 that showed mild LVH with preserved systolic function. Chest x-ray from 05/02/2024 showed cardiomegaly with some scattered reticular opacities with possibility of a mild viral pneumonia. On 05/05/2024, the patient is being seen for a follow-up. This morning, the patient remains on Airvo at 50 L and FiO2 of 70%. Continues to have a congested cough. Able to bring a much sputum. Afebrile. A follow-up chest x-ray was done on 05/05/2024 and the chest x-ray showed mild bibasilar infiltrate and segmental and subsegmental atelectatic changes. Questionable right apical pneumothorax was also noted. The patient otherwise has no specific complaints. She remains on DuoNeb nebulizer treatments [id number]. She remains on Symbicort. She remains on IV Solu-Medrol 40 mg every 8 hours. Sodium levels at 135, bicarb is at 42 with a BUN of 24 and a creatinine of 0.6. The echocardiogram from 04/27/2024 showed preserved LV function. She remains on Levemir insulin for blood sugar control. Objective - Vital Signs Vital signs: Vital Signs Temp 97.8 F 05/05/24 11:55 Pulse 60 05/05/24 12:14 Resp 19 05/05/24 11:55 BP 153/82 05/05/24 11:55 Pulse Ox 97 05/05/24 11:55 FiO2 70 05/05/24 11:57 Intake & Output 05/04/24 05/05/24 05/05/24 18:59 06:59 18:59 Intake Total 354 30 Output Total 100 150 350 Balance 254 -150 -320 Weight 67 kg 77.4 kg Intake: IV 30 Invasive Line 3 30 Oral 354 Output: Urine 100 150 350 Other: Voiding Method Incontinent # Voids 1 # Bowel Movements 0 - Exam GENERAL EXAM: Alert, does not, weak 73-year-old female, on Airvo at 50 L with an FiO2 of 70% HEAD: Normocephalic. EYES: Normal reaction of pupils, equal size. NOSE: Clear with pink turbinates. THROAT: No erythema or exudates. NECK: No masses, no JVD. CHEST: No chest wall deformity. LUNGS: Equal air entry with bilateral end expiratory wheeze, diminished. CVS: S1 and S2 normal with no audible murmur, regular rhythm. ABDOMEN: No hepatosplenomegaly, normal bowel sounds, no guarding or rigidity. SPINE: No scoliosis or deformity SKIN: No rashes CENTRAL NERVOUS SYSTEM: No focal deficits, tone is normal in all 4 extremities. EXTREMITIES: There is no peripheral edema. No clubbing, no cyanosis. Peripheral pulses are intact. - Labs CBC & Chem 7: 05/02/24 06:08 05/05/24 10:12 Labs: Abnormal Lab Results - Last 24 Hours (Table) 05/04/24 05/04/24 05/05/24 Range/Units 16:57 20:12 06:20 Sodium (137-145) mmol/L Chloride (98-107) mmol/L Carbon Dioxide (22-30) mmol/L BUN (7-17) mg/dL Glucose (74-99) mg/dL POC Glucose (mg/dL) 162 H 203 H 132 H (70-110) mg/dL 05/05/24 05/05/24 Range/Units 10:12 11:41 Sodium 135 L (137-145) mmol/L Chloride 88 L (98-107) mmol/L Carbon Dioxide 42 H* (22-30) mmol/L BUN 24 H (7-17) mg/dL Glucose 157 H (74-99) mg/dL POC Glucose (mg/dL) 128 H (70-110) mg/dL Microbiology - Last 24 Hours (Table) 05/02/24 18:30 Gram Stain - Final Sputum Sputum Culture - Final 05/02/24 14:20 Blood Culture - Preliminary Blood Assessment and Plan Plan: Acute hypoxic respiratory failure secondary to an acute exacerbation of chronic obstructive pulmonary disease complicated by influenza A. Acute hypoxic respiratory failure currently on 50 L with an FiO2 of 70% Acute influenza A infection. Atrial fibrillation with RVR, converted to sinus rhythm Acute non-STEMI type II with troponin leak, echocardiogram shows a preserved LV function Chronic and ongoing tobacco dependence of greater than 40 years. Chronic obstructive pulmonary disease, not on treatment in the outpatient setting. Hypertension. Plan: Titrate oxygen flow to maintain saturation above 90%, currently still on Airvo Continue DuoNeb nebulizer treatments [id number] Stop the Symbicort and put the patient on a combination performance of Pulmicort updrafts IV Solu-Medrol 40 mg every 8 hours Provide the patient incentive spirometer Provide a flutter valve Repeat chest x-ray in the morning was noted and shows some atelectatic changes in lung base bilaterally Echo was noted Cardiac rhythm is sinus and the patient is currently on metoprolol 25 mg twice daily and anticoagulation with Eliquis 5 mg p.o. twice a day Levemir insulin 10 units nightly Sliding scale insulin coverage Will continue to follow
[2024-05-05] MEDS: BUDESONIDE 0.5 MG/2 ML NEBU INHALATION SCH (19:19)
[2024-05-05] MEDS: FORMOTEROL FUMARATE 20 MCG/2 ML NEBU INHALATION SCH (19:19)
[2024-05-05 20:10] LABS: Glucose,Whole Blood 269 mg/dL (70-110)
[2024-05-06 06:00] LABS: Glucose,Whole Blood 238 mg/dL (70-110)
[2024-05-06 11:32] LABS: Glucose,Whole Blood 170 mg/dL (70-110)
--- NOTE | 2024-05-06 13:00 | P.PN ---
Subjective Progress Note Date: 05/06/24 04/27/24 This is a 73-year-old white female who was admitted for acute respiratory failure with influenza A. She is currently on Airvo high flow oxygen and apparently went into atrial fibrillation last night. She remains on Cardizem drip this morning. She is still on consultation by cardiology and pulmonary critical care. She she complains of weakness and fatigue with shortness of breath but she denies any fever. She was assessed for anxiety and she states she has some irritability but anxiety is controlled. 04/28/2024 patient was seen lethargic today not very responsive on a BiPAP. She is currently in sinus rhythm and Cardizem drip has been stopped she had an episode of dark stool which was guaiac positive last p.m. her hemoglobin is 14.2 she does no signs of active bleeding and her vital signs are stable. Heparin was held because of the dark stool continue to monitor patient 04/29/2024 maintained on Tamiflu, BiPAP, 14/6, 40%,O2 sats mid to high 90s. Patient is currently full code with no intubation. Son at bedside, CODE STATUS further addressed as per PCP. Son wishes to discuss further with his family before making any changes. Afebrile, renal function stable. Vital signs stable, hemoglobin stable 14.1, no signs of active bleeding. 04/30/2024 continues on BiPAP 14/6 40% FiO2, maintaining O2 sats in the high 90s currently. Afebrile. CBC pending. Telemetry sinus rhythm. 05/01/2024 maintained on nebulized bronchodilators, IV steroids, Symbicort ,transitioned to Airvo 65% FiO2. Maintaining O2 sats in the low 90s. Afebrile, Tmax 100.8. Reports easier breathing today, feels weak. Denies chest pain, palpitations. 05/04/2024 Airvo decreased to 60% FiO2, maintaining O2 sats in the high 90s. Previous evaluation by PT reporting challenges with endurance ,recommending home care. Afebrile. Sodium 133, potassium 5.2, bicarb 39, BUN 27, creatinine 0.56. Blood sugars ranging from 146-189. 05/05/2024 Airvo 70% FiO2, maintaining O2 sats in the high 90s. Chest x-ray pending. Afebrile. 05/06/2024 maintained on nebulized bronchodilators, IV steroids, Pulmicort .FiO2 decreased to 65% high flow. Chest x-ray yesterday reported some slight increased linear opacities in the lung apices, possible small right apical pneumothorax ,bibasilar infiltrates slightly greater on the left. blood sugars increasing on steroids, up into the 200s..afebrile. Objective - Vital Signs Vital signs: Vital Signs Temp 98.3 F 05/06/24 04:41 Pulse 68 05/06/24 12:52 Resp 18 05/06/24 11:44 BP 144/78 05/06/24 11:44 Pulse Ox 95 05/06/24 11:44 FiO2 64 05/06/24 12:39 Intake & Output 05/05/24 05/06/24 05/06/24 18:59 06:59 18:59 Intake Total 30 20 550 Output Total 350 200 Balance -320 20 350 Weight 70 kg Intake: IV 30 20 10 Invasive Line 3 30 Invasive Line 4 20 10 Oral 540 Output: Urine 350 200 Other: Voiding Method Incontinent Incontinent Incontinent # Voids 1 - Exam GENERAL: Sitting up in bed, alert and oriented x 3, wearing Airvo HEENT: Atraumatic, normocephalic. Pupils are equal, round. Conjunctivae are clear. Neck is supple, no JVD. RESPIRATORY: Diminished breath sounds bilaterally with fine expiratory wheeze. CARDIOVASCULAR: S1, S2, regular rate and rhythm. GASTROINTESTINAL: Soft, nondistended, nontender. Positive bowel sounds INTEGUMENTARY: No cyanosis. No jaundice. No rashes noted. EXTREMITIES: 2+ peripheral pulses. no edema, no cyanosis, no clubbing, no calf tenderness noted. NEUROLOGIC: Cranial nerves II-XII intact. No focal deficits,diffuse weakness. - Labs CBC & Chem 7: 05/02/24 06:08 05/05/24 10:12 Labs: Abnormal Lab Results - Last 24 Hours (Table) 05/05/24 05/05/24 05/06/24 Range/Units 16:31 20:09 05:59 POC Glucose (mg/dL) 243 H 269 H 238 H (70-110) mg/dL 05/06/24 Range/Units 11:30 POC Glucose (mg/dL) 170 H (70-110) mg/dL Microbiology - Last 24 Hours (Table) 05/02/24 14:20 Blood Culture - Preliminary Blood 05/02/24 18:30 Gram Stain - Final Sputum Sputum Culture - Final Assessment and Plan Assessment: 1) Afib currently in sinus rhythm Current Visit: Yes Status: Acute Code(s): I48.91 - UNSPECIFIED ATRIAL FIBRILLATION SNOMED Code(s): 69811906 (2) Acute exacerbation of chronic obstructive pulmonary disease (COPD) Current Visit: Yes Status: Acute Code(s): J44.1 - CHRONIC OBSTRUCTIVE PULMONARY DISEASE W (ACUTE) EXACERBATION SNOMED Code(s): 238459827 (3) Influenza A Current Visit: Yes Status: Acute Code(s): J10.1 - FLU DUE TO OTH IDENT INFLUENZA VIRUS W OTH RESP MANIFEST SNOMED Code(s): 825879767 (4) NSTEMI (non-ST elevated myocardial infarction) Current Visit: Yes Status: Acute Code(s): I21.4 - NON-ST ELEVATION (NSTEMI) MYOCARDIAL INFARCTION SNOMED Code(s): 82313287 (5) acute hypoxic respiratory failure secondary to acute COPD exacerbation and influenza A. (6) thrombocytopenia Plan: Continue on current medication regimen ,monitoring and symptomatic treatment. Following closely with pulmonary. maintain aggressive pulmonary toileting with flutter valve ordered, nebulized bronchodilators, pulmicort and IV steroids. Levemir insulin increased to twice daily , close monitoring of Accu-Cheks .beta-jihan and anticoagulation with Eliquis. The impression and plan of care has been dictated as directed. : I performed a history and examination of this patient, discussed the same with the dictator. I agree with the dictator's note ,documented as a scribe. Any additional findings or plans will be noted.
[2024-05-06 16:34] LABS: Glucose,Whole Blood 178 mg/dL (70-110)
[2024-05-06] MEDS: INSULIN DETEMIR (LEVEMIR) 100 UNIT/ML SYR SQ SCH (16:54)
--- NOTE | 2024-05-06 18:32 | P.PN ---
Subjective Progress Note Date: 05/06/24 This is a pleasant 73-year-old female patient with a known history of hypertension and chronic obstructive pulmonary disease, chronic and ongoing tobacco dependence of greater than 40 years who presented to the emergency room last evening with a 2 to 3-day history of increasing shortness of breath, cough and congestion. She was found to be hypoxemic and placed on 6 L high flow nasal cannula. Chest x-ray showed no acute pulmonary process. White count 7.9. Hemoglobin 14.9. Platelets 140. INR 1.0. D-dimer 0.56. Sodium 137. Potassium 5.0. Bicarb 28. BUN 15. Creatinine 0.71. Troponin 0.222, 0.262. Procalcitonin negative at 0.10. Viral screen is positive for influenza A. She was initiated on a heparin drip. She is seen today in consultation in the emergency department. She is currently sitting up on a stretcher. Awake and alert in no acute distress. She does have a dry nonproductive cough. Her main complaint is that of fatigue today. She is remains hypoxic now requiring 12 L high flow nasal cannula to maintain O2 saturation in the low 90s. Progress note dated April 27, 2024. 73-year-old female who was seen in consultation yesterday. Please see the note above. The patient is seen today in room 372. She continues on Airvo, with settings of 60 L/min, and FiO2 of 60%. She is getting saline at 5 cc an hour, and Cardizem drip at 5 mg an hour. She also continues on IV heparin. She apparently took her AIRVO device off, and her saturations on room air are only 8 4%. They did recover, once Airvo was placed back on the patient. Current labs include a white count of 10.9, hemoglobin 14.5, hematocrit 46.5, and a platelet count of 142,000. PTT is 53.6. Sodium 134, potassium 4.8, chlorides 99, CO2 32, BUN 22, creatinine 0.72. AST was 47. ALT is 36. Procalcitonin level was 0.10 and repeat was 0.07. Chest x-ray shows no acute pulmonary process. Progress note dated April 28, 2024. 73-year-old female seen today in room 372. The patient continues on BiPAP, with settings of 14/6, and 40%. She is getting saline at 20 cc an hour. The patient did test positive for influenza. Current laboratory data includes a white count 7.4, hemoglobin 14.1, hematocrit 47, and a platelet count of 122,000. Blood gases were done and show pO2 of 101, pCO2 of 81, pH of 7.25. They were done on 55% oxygen. Sodium 137, potassium 5.2, chlorides 101, CO2 33, BUN 31, creatinine 0.76. Glucose 130. Albumin is 3.2. A chest x-ray today shows no acute pulmonary process. Progress note dated April 29, 2024. 73-year-old female seen today in room 372. The patient is currently on BiPAP, with settings of 14/6, and 40%. She continues on Tamiflu. The patient is a DO NOT INTUBATE patient. Labs today are reviewed. Sodium 141, potassium 4.7, chlorides 100, CO2 36, BUN 23, and creatinine 0.64. Calcium is 8.8. Glucose is 88. Chest x-ray from yesterday, does not show an acute pulmonary process. Progress note dated April 30, 2024. 73-year-old female seen today in room 372. The patient is currently on Airvo, with settings of 50 L/min and an FiO2 of 65%. When not on Airvo, the patient is on BiPAP, with settings of 14/6, and 40%. The patient is not receiving any IV fluids. The patient is a DO NOT INTUBATE patient. Current laboratory data includes a white count 3.4, hemoglobin 13.4, hematocrit 43.9, and a platelet count of 107,000. No additional laboratory data as noted. Progress note dated May 01, 2024. 73-year-old female seen today in room 372. The patient is currently on Airvo, with settings of 50 L/min, and an FiO2 60%. She did spend a small amount of time on BiPAP, yesterday. The patient is not receiving any IV fluids. She is sitting in a chair next to the hospital bed. She actually looks relatively comfortable. The patient is a full code, with instructions, including not to be intubated. No new labs today, other than a glucose of 164. Progress note dated May 02, 2024. 73-year-old female seen today in room 372. The patient continues on Airvo, 60 L/min, with an FiO2 of 70%. No IV fluids. The patient is resting comfortably in bed. She does not appear to have any shortness of breath or difficulty carlitos thing. Current laboratory data includes a white count 5.9, hemoglobin 13.7, hematocrit 43.7, and a platelet count of 107,000. Sodium 135, potassium 5.1, chlorides 94, CO2 34, BUN 27, and creatinine 0.53. Glucose is 275. Calcium 8.8. Hemoglobin A1c 6.1. Chest x-ray shows cardiomegaly, with scattered reticular opacities, consistent with atypical pneumonia. Progress note dated May 03, 2024. 73-year-old female seen today in room 372. The patient continues on Airvo, with settings of 60 L/min, and FiO2 70%. The patient was admitted with a COPD exacerbation, triggered or exacerbated by influenza A. Clinically, she is doing about the same. She is laying flat in bed. No respiratory distress. Laboratory data includes a sodium 135, potassium 4.7, 31, CO2 38, anion gap 6, BUN 24, and creatinine 0.6. Glucose is 156. Calcium is 9. X-ray from yesterday, has been reviewed, as above. On today's evaluation of 05/04/2024, the patient is being seen for a follow-up. This 73-year-old female patient remains quite hypoxic, still on Airvo at 60 L and FiO2 has been dropped down to 50%. Noted the patient is an acute COPD exacerbation. The same time, the patient was diagnosed having an acute influenza A infection. The patient remains on Airvo for oxygenation. The patient remains on Symbicort, DuoNeb treatments [id number] and the patient is also on IV Solu-Medrol 40 mg every 8 hours. Remains on Levemir insulin 10 units in addition to a sliding scale insulin coverage. Noted the patient is not oxygen dependent on outpatient basis. She is a chronic smoker. Blood work from today shows a BUN of 27 with a creatinine of 0.5. Sodium levels at 133, potassium is at 4.2, serum bicarb is at 39. Chloride level is at 92. The patient had a echocardiogram on 04/27/2024 that showed mild LVH with preserved systolic function. Chest x-ray from 05/02/2024 showed cardiomegaly with some scattered reticular opacities with possibility of a mild viral pneumonia. On 05/05/2024, the patient is being seen for a follow-up. This morning, the patient remains on Airvo at 50 L and FiO2 of 70%. Continues to have a congested cough. Able to bring a much sputum. Afebrile. A follow-up chest x-ray was done on 05/05/2024 and the chest x-ray showed mild bibasilar infiltrate and segmental and subsegmental atelectatic changes. Questionable right apical pneumothorax was also noted. The patient otherwise has no specific complaints. She remains on DuoNeb nebulizer treatments [id number]. She remains on Symbicort. She remains on IV Solu-Medrol 40 mg every 8 hours. Sodium levels at 135, bicarb is at 42 with a BUN of 24 and a creatinine of 0.6. The echocardiogram from 04/27/2024 showed preserved LV function. She remains on Levemir insulin for blood sugar control. On 05/06/2024, the patient remains dependent on Airvo. On today's evaluation, the patient is on 50 L and FiO2 of 65%. Using incentive spirometer. Using a flutter valve. No significant improvement in patient's oxygenation over the past few days. Based on that, a CAT scan of the chest will be ordered. Remains on DuoNeb updrafts. Remains on Perforomist and Pulmicort nebulized twice a day and IV Solu-Medrol 40 mg every 8 hours. The rest of the medication remains unchanged. The patient remains on Levemir insulin 11 units daily in addition to sliding scale coverage. Objective - Vital Signs Vital signs: Vital Signs Temp 98.3 F 05/06/24 04:41 Pulse 68 05/06/24 12:52 Resp 18 05/06/24 11:44 BP 144/78 05/06/24 11:44 Pulse Ox 95 05/06/24 11:44 FiO2 64 05/06/24 12:39 Intake & Output 05/05/24 05/06/24 05/06/24 18:59 06:59 18:59 Intake Total 30 20 550 Output Total 350 200 Balance -320 20 350 Weight 70 kg Intake: IV 30 20 10 Invasive Line 3 30 Invasive Line 4 20 10 Oral 540 Output: Urine 350 200 Other: Voiding Method Incontinent Incontinent Incontinent # Voids 1 - Exam GENERAL EXAM: Alert, does not, weak 73-year-old female, on Airvo at 50 L with an FiO2 of 65% HEAD: Normocephalic. EYES: Normal reaction of pupils, equal size. NOSE: Clear with pink turbinates. THROAT: No erythema or exudates. NECK: No masses, no JVD. CHEST: No chest wall deformity. LUNGS: Equal air entry with bilateral end expiratory wheeze, diminished. CVS: S1 and S2 normal with no audible murmur, regular rhythm. ABDOMEN: No hepatosplenomegaly, normal bowel sounds, no guarding or rigidity. SPINE: No scoliosis or deformity SKIN: No rashes CENTRAL NERVOUS SYSTEM: No focal deficits, tone is normal in all 4 extremities. EXTREMITIES: There is no peripheral edema. No clubbing, no cyanosis. Peripheral pulses are intact. - Labs CBC & Chem 7: 05/02/24 06:08 05/05/24 10:12 Labs: Abnormal Lab Results - Last 24 Hours (Table) 05/05/24 05/05/24 05/06/24 Range/Units 16:31 20:09 05:59 POC Glucose (mg/dL) 243 H 269 H 238 H (70-110) mg/dL 05/06/24 Range/Units 11:30 POC Glucose (mg/dL) 170 H (70-110) mg/dL Microbiology - Last 24 Hours (Table) 05/02/24 14:20 Blood Culture - Preliminary Blood 05/02/24 18:30 Gram Stain - Final Sputum Sputum Culture - Final Assessment and Plan Plan: Acute hypoxic respiratory failure secondary to an acute exacerbation of chronic obstructive pulmonary disease complicated by influenza A. Acute hypoxic respiratory failure currently on 50 L with an FiO2 of 65%, no significant close the patient oxygenation over the past several days. Acute influenza A infection. Atrial fibrillation with RVR, converted to sinus rhythm Acute non-STEMI type II with troponin leak, echocardiogram shows a preserved LV function Chronic and ongoing tobacco dependence of greater than 40 years. Chronic obstructive pulmonary disease, not on treatment in the outpatient setting. Hypertension. Plan: Titrate oxygen flow to maintain saturation above 90%, currently still on Airvo Continue DuoNeb nebulizer treatments [id number] Stop the Symbicort and put the patient on a combination performance of Pulmicort updrafts IV Solu-Medrol 40 mg every 8 hours Provide the patient incentive spirometer Provide a flutter valve Repeat chest x-ray in the morning was noted and shows some atelectatic changes in lung base bilaterally Echo was noted Cardiac rhythm is sinus and the patient is currently on metoprolol 25 mg twice daily and anticoagulation with Eliquis 5 mg p.o. twice a day Levemir insulin 11 units nightly Sliding scale insulin coverage Will proceed with a CTA of the chest Will continue to follow Time with Patient: Greater than 30
[2024-05-06 20:06] LABS: Glucose,Whole Blood 159 mg/dL (70-110)
[2024-05-06] MEDS ORDERED: INSULIN DETEMIR (LEVEMIR) 100 UNIT/ML SYR SQ SCH (21:00)
[2024-05-07 06:09] LABS: Glucose,Whole Blood 130 mg/dL (70-110)
[2024-05-07 11:31] LABS: Glucose,Whole Blood 94 mg/dL (70-110)
--- NOTE | 2024-05-07 13:24 | P.PN ---
Subjective Progress Note Date: 05/07/24 04/27/24 This is a 73-year-old white female who was admitted for acute respiratory failure with influenza A. She is currently on Airvo high flow oxygen and apparently went into atrial fibrillation last night. She remains on Cardizem drip this morning. She is still on consultation by cardiology and pulmonary critical care. She she complains of weakness and fatigue with shortness of breath but she denies any fever. She was assessed for anxiety and she states she has some irritability but anxiety is controlled. 04/28/2024 patient was seen lethargic today not very responsive on a BiPAP. She is currently in sinus rhythm and Cardizem drip has been stopped she had an episode of dark stool which was guaiac positive last p.m. her hemoglobin is 14.2 she does no signs of active bleeding and her vital signs are stable. Heparin was held because of the dark stool continue to monitor patient 04/29/2024 maintained on Tamiflu, BiPAP, 14/6, 40%,O2 sats mid to high 90s. Patient is currently full code with no intubation. Son at bedside, CODE STATUS further addressed as per PCP. Son wishes to discuss further with his family before making any changes. Afebrile, renal function stable. Vital signs stable, hemoglobin stable 14.1, no signs of active bleeding. 04/30/2024 continues on BiPAP 14/6 40% FiO2, maintaining O2 sats in the high 90s currently. Afebrile. CBC pending. Telemetry sinus rhythm. 05/01/2024 maintained on nebulized bronchodilators, IV steroids, Symbicort ,transitioned to Airvo 65% FiO2. Maintaining O2 sats in the low 90s. Afebrile, Tmax 100.8. Reports easier breathing today, feels weak. Denies chest pain, palpitations. 05/04/2024 Airvo decreased to 60% FiO2, maintaining O2 sats in the high 90s. Previous evaluation by PT reporting challenges with endurance ,recommending home care. Afebrile. Sodium 133, potassium 5.2, bicarb 39, BUN 27, creatinine 0.56. Blood sugars ranging from 146-189. 05/05/2024 Airvo 70% FiO2, maintaining O2 sats in the high 90s. Chest x-ray pending. Afebrile. 05/06/2024 FiO2 decreased to 65% high flow. Chest x-ray yesterday reported some slight increased linear opacities in the lung apices, possible small right apical pneumothorax ,bibasilar infiltrates slightly greater on the left. afebrile. 05/07. Patient seen and examined. Patient continues to be on heated high flow with a left FiO2 of 60% with a flow of 50 L. Currently sitting upright in the chair, eating her food. States shortness of breath is present on exertion. Denies shortness of breath at rest. Complaining of cough REVIEW OF SYSTEMS: CONSTITUTIONAL: No fever, no malaise,. CARDIOVASCULAR: No chest pain, no palpitations, no syncope. PULMONARY: As mentioned above GASTROINTESTINAL: No diarrhea, no nausea, no vomiting, no abdominal pain. NEUROLOGICAL: No headaches, no weakness, PHYSICAL EXAMINATION: GENERAL: The patient is alert and oriented x3, not in any acute distress. Well developed, well nourished. HEENT: Pupils are round and equally reacting to light. EOMI. No scleral icterus. No conjunctival pallor. Normocephalic, atraumatic. No pharyngeal erythema. No thyromegaly. CARDIOVASCULAR: S1 and S2 present. No murmurs, rubs, or gallops. PULMONARY: Diminished breath sounds at bases, coarse breath sounds, rhonchi audible ABDOMEN: Soft, nontender, nondistended, normoactive bowel sounds. No palpable organomegaly. MUSCULOSKELETAL: No joint swelling or deformity. EXTREMITIES: No cyanosis, clubbing, or pedal edema. NEUROLOGICAL: Gross neurological examination did not reveal any focal deficits. SKIN: No rashes. Assessment and plan Acute hypoxic respiratory failure secondary acute exacerbation of chronic obstructive pulmonary disease complicated by influenza A. Acute influenza A infection. Atrial fibrillation with RVR, converted to sinus rhythm Acute non-STEMI type II with troponin leak, echocardiogram shows a preserved LV function Chronic and ongoing tobacco dependence of greater than 40 years. Chronic obstructive pulmonary disease, not on treatment in the outpatient setting. Hypertension. Monitor vital signs Monitor CBC Monitor CMP Continue telemetry monitoring Continue oxygen supplementation Currently on heated high flow Aggressive bronchopulmonary hygiene Continue Eliquis Continue breathing treatments Continue IV Solu-Medrol Pulmonology following Labs and medication were reviewed.. Continue same treatment. Continue with symptomatic treatment. Resume home medication. Monitor labs and vitals. DVT and GI prophylaxis. Further recommendations as per clinical course of the patient Dictation was produced using [employer] dictation software. please excuse any grammatical, word or spelling errors. Objective - Vital Signs Vital signs: Vital Signs Temp 98.1 F 05/07/24 07:30 Pulse 68 05/07/24 09:11 Resp 14 05/07/24 07:30 BP 151/69 05/07/24 07:30 Pulse Ox 92 L 05/07/24 10:16 FiO2 60 05/07/24 10:16 Intake & Output 05/06/24 05/07/24 05/07/24 18:59 06:59 18:59 Intake Total 910 20 180 Output Total 300 600 300 Balance 610 -580 -120 Weight 70 kg Intake: IV 30 20 Invasive Line 4 10 Invasive Line 5 20 20 Oral 880 180 Output: Urine 300 600 300 Other: Voiding Method Incontinent Incontinent Bedside Commode # Voids 1 # Bowel Movements 1 - Labs CBC & Chem 7: 05/02/24 06:08 05/05/24 10:12 Labs: Abnormal Lab Results - Last 24 Hours (Table) 05/06/24 05/06/24 05/06/24 Range/Units 11:30 16:32 20:03 POC Glucose (mg/dL) 170 H 178 H 159 H (70-110) mg/dL 05/07/24 Range/Units 06:06 POC Glucose (mg/dL) 130 H (70-110) mg/dL
[2024-05-07 16:02] LABS: Glucose,Whole Blood 176 mg/dL (70-110)
--- NOTE | 2024-05-07 18:54 | P.PN ---
Subjective Progress Note Date: 05/07/24 This is a pleasant 73-year-old female patient with a known history of hypertension and chronic obstructive pulmonary disease, chronic and ongoing tobacco dependence of greater than 40 years who presented to the emergency room last evening with a 2 to 3-day history of increasing shortness of breath, cough and congestion. She was found to be hypoxemic and placed on 6 L high flow nasal cannula. Chest x-ray showed no acute pulmonary process. White count 7.9. Hemoglobin 14.9. Platelets 140. INR 1.0. D-dimer 0.56. Sodium 137. Potassium 5.0. Bicarb 28. BUN 15. Creatinine 0.71. Troponin 0.222, 0.262. Procalcitonin negative at 0.10. Viral screen is positive for influenza A. She was initiated on a heparin drip. She is seen today in consultation in the emergency department. She is currently sitting up on a stretcher. Awake and alert in no acute distress. She does have a dry nonproductive cough. Her main complaint is that of fatigue today. She is remains hypoxic now requiring 12 L high flow nasal cannula to maintain O2 saturation in the low 90s. Progress note dated April 27, 2024. 73-year-old female who was seen in consultation yesterday. Please see the note above. The patient is seen today in room 372. She continues on Airvo, with settings of 60 L/min, and FiO2 of 60%. She is getting saline at 5 cc an hour, and Cardizem drip at 5 mg an hour. She also continues on IV heparin. She apparently took her AIRVO device off, and her saturations on room air are only 8 4%. They did recover, once Airvo was placed back on the patient. Current labs include a white count of 10.9, hemoglobin 14.5, hematocrit 46.5, and a platelet count of 142,000. PTT is 53.6. Sodium 134, potassium 4.8, chlorides 99, CO2 32, BUN 22, creatinine 0.72. AST was 47. ALT is 36. Procalcitonin level was 0.10 and repeat was 0.07. Chest x-ray shows no acute pulmonary process. Progress note dated April 28, 2024. 73-year-old female seen today in room 372. The patient continues on BiPAP, with settings of 14/6, and 40%. She is getting saline at 20 cc an hour. The patient did test positive for influenza. Current laboratory data includes a white count 7.4, hemoglobin 14.1, hematocrit 47, and a platelet count of 122,000. Blood gases were done and show pO2 of 101, pCO2 of 81, pH of 7.25. They were done on 55% oxygen. Sodium 137, potassium 5.2, chlorides 101, CO2 33, BUN 31, creatinine 0.76. Glucose 130. Albumin is 3.2. A chest x-ray today shows no acute pulmonary process. Progress note dated April 29, 2024. 73-year-old female seen today in room 372. The patient is currently on BiPAP, with settings of 14/6, and 40%. She continues on Tamiflu. The patient is a DO NOT INTUBATE patient. Labs today are reviewed. Sodium 141, potassium 4.7, chlorides 100, CO2 36, BUN 23, and creatinine 0.64. Calcium is 8.8. Glucose is 88. Chest x-ray from yesterday, does not show an acute pulmonary process. Progress note dated April 30, 2024. 73-year-old female seen today in room 372. The patient is currently on Airvo, with settings of 50 L/min and an FiO2 of 65%. When not on Airvo, the patient is on BiPAP, with settings of 14/6, and 40%. The patient is not receiving any IV fluids. The patient is a DO NOT INTUBATE patient. Current laboratory data includes a white count 3.4, hemoglobin 13.4, hematocrit 43.9, and a platelet count of 107,000. No additional laboratory data as noted. Progress note dated May 01, 2024. 73-year-old female seen today in room 372. The patient is currently on Airvo, with settings of 50 L/min, and an FiO2 60%. She did spend a small amount of time on BiPAP, yesterday. The patient is not receiving any IV fluids. She is sitting in a chair next to the hospital bed. She actually looks relatively comfortable. The patient is a full code, with instructions, including not to be intubated. No new labs today, other than a glucose of 164. Progress note dated May 02, 2024. 73-year-old female seen today in room 372. The patient continues on Airvo, 60 L/min, with an FiO2 of 70%. No IV fluids. The patient is resting comfortably in bed. She does not appear to have any shortness of breath or difficulty carlitos thing. Current laboratory data includes a white count 5.9, hemoglobin 13.7, hematocrit 43.7, and a platelet count of 107,000. Sodium 135, potassium 5.1, chlorides 94, CO2 34, BUN 27, and creatinine 0.53. Glucose is 275. Calcium 8.8. Hemoglobin A1c 6.1. Chest x-ray shows cardiomegaly, with scattered reticular opacities, consistent with atypical pneumonia. Progress note dated May 03, 2024. 73-year-old female seen today in room 372. The patient continues on Airvo, with settings of 60 L/min, and FiO2 70%. The patient was admitted with a COPD exacerbation, triggered or exacerbated by influenza A. Clinically, she is doing about the same. She is laying flat in bed. No respiratory distress. Laboratory data includes a sodium 135, potassium 4.7, 31, CO2 38, anion gap 6, BUN 24, and creatinine 0.6. Glucose is 156. Calcium is 9. X-ray from yesterday, has been reviewed, as above. On today's evaluation of 05/04/2024, the patient is being seen for a follow-up. This 73-year-old female patient remains quite hypoxic, still on Airvo at 60 L and FiO2 has been dropped down to 50%. Noted the patient is an acute COPD exacerbation. The same time, the patient was diagnosed having an acute influenza A infection. The patient remains on Airvo for oxygenation. The patient remains on Symbicort, DuoNeb treatments [id number] and the patient is also on IV Solu-Medrol 40 mg every 8 hours. Remains on Levemir insulin 10 units in addition to a sliding scale insulin coverage. Noted the patient is not oxygen dependent on outpatient basis. She is a chronic smoker. Blood work from today shows a BUN of 27 with a creatinine of 0.5. Sodium levels at 133, potassium is at 4.2, serum bicarb is at 39. Chloride level is at 92. The patient had a echocardiogram on 04/27/2024 that showed mild LVH with preserved systolic function. Chest x-ray from 05/02/2024 showed cardiomegaly with some scattered reticular opacities with possibility of a mild viral pneumonia. On 05/05/2024, the patient is being seen for a follow-up. This morning, the patient remains on Airvo at 50 L and FiO2 of 70%. Continues to have a congested cough. Able to bring a much sputum. Afebrile. A follow-up chest x-ray was done on 05/05/2024 and the chest x-ray showed mild bibasilar infiltrate and segmental and subsegmental atelectatic changes. Questionable right apical pneumothorax was also noted. The patient otherwise has no specific complaints. She remains on DuoNeb nebulizer treatments [id number]. She remains on Symbicort. She remains on IV Solu-Medrol 40 mg every 8 hours. Sodium levels at 135, bicarb is at 42 with a BUN of 24 and a creatinine of 0.6. The echocardiogram from 04/27/2024 showed preserved LV function. She remains on Levemir insulin for blood sugar control. On 05/06/2024, the patient remains dependent on Airvo. On today's evaluation, the patient is on 50 L and FiO2 of 65%. Using incentive spirometer. Using a flutter valve. No significant improvement in patient's oxygenation over the past few days. Based on that, a CAT scan of the chest will be ordered. Remains on DuoNeb updrafts. Remains on Perforomist and Pulmicort nebulized twice a day and IV Solu-Medrol 40 mg every 8 hours. The rest of the medication remains unchanged. The patient remains on Levemir insulin 11 units daily in addition to sliding scale coverage. On 05/07/2024, the patient remains on Airvo at 50 L and FiO2 of 60%. Using incentive spirometer. Using a flutter valve. Continues to have some congested cough. Unable to bring up much of sputum. No new complaints otherwise. She is post influenza A infection. The patient completed a course of Tamiflu. Remains on IV Solu-Medrol 40 g every 8 hours. Remains on anticoagulation with Eliquis. Unable to obtain a CAT scan of the chest yesterday as the patient remains on Airvo. She remains on DuoNeb updrafts. She remains on a combination of Perforomist and Pulmicort nebulized treatments twice a day. Rest of the medications remain unchanged. Objective - Vital Signs Vital signs: Vital Signs Temp 98.1 F 05/07/24 07:30 Pulse 68 05/07/24 09:11 Resp 14 05/07/24 07:30 BP 151/69 05/07/24 07:30 Pulse Ox 92 L 05/07/24 10:16 FiO2 60 05/07/24 10:16 Intake & Output 05/06/24 05/07/24 05/07/24 18:59 06:59 18:59 Intake Total 910 20 180 Output Total 300 600 300 Balance 610 -580 -120 Weight 70 kg Intake: IV 30 20 Invasive Line 4 10 Invasive Line 5 20 20 Oral 880 180 Output: Urine 300 600 300 Other: Voiding Method Incontinent Incontinent Bedside Commode # Voids 1 # Bowel Movements 1 - Exam GENERAL EXAM: Alert, does not, weak 73-year-old female, on Airvo at 50 L with an FiO2 of 60% HEAD: Normocephalic. EYES: Normal reaction of pupils, equal size. NOSE: Clear with pink turbinates. THROAT: No erythema or exudates. NECK: No masses, no JVD. CHEST: No chest wall deformity. LUNGS: Equal air entry with bilateral end expiratory wheeze, diminished. CVS: S1 and S2 normal with no audible murmur, regular rhythm. ABDOMEN: No hepatosplenomegaly, normal bowel sounds, no guarding or rigidity. SPINE: No scoliosis or deformity SKIN: No rashes CENTRAL NERVOUS SYSTEM: No focal deficits, tone is normal in all 4 extremities. EXTREMITIES: There is no peripheral edema. No clubbing, no cyanosis. Peripheral pulses are intact. - Labs CBC & Chem 7: 05/02/24 06:08 05/05/24 10:12 Labs: Abnormal Lab Results - Last 24 Hours (Table) 05/06/24 05/06/24 05/06/24 Range/Units 11:30 16:32 20:03 POC Glucose (mg/dL) 170 H 178 H 159 H (70-110) mg/dL 05/07/24 Range/Units 06:06 POC Glucose (mg/dL) 130 H (70-110) mg/dL Assessment and Plan Plan: Acute hypoxic respiratory failure secondary to an acute exacerbation of chronic obstructive pulmonary disease complicated by influenza A. Rule out underlying acute lung injury post influenza A infection as the patient remains hypoxic, and she remains Airvo dependent. She remains on IV Solu-Medrol. Patient is on anticoagulation with Eliquis and pulm embolism is felt to be less likely. She does have background COPD. Acute hypoxic respiratory failure currently on 50 L with an FiO2 of 60 %, no significant close the patient oxygenation over the past several days. Acute influenza A infection. Atrial fibrillation with RVR, converted to sinus rhythm Acute non-STEMI type II with troponin leak, echocardiogram shows a preserved LV function Chronic and ongoing tobacco dependence of greater than 40 years. Chronic obstructive pulmonary disease, not on treatment in the outpatient setting. Hypertension. Plan: Titrate oxygen flow to maintain saturation above 90%, currently still on Airvo Continue DuoNeb nebulizer treatments [id number] Continue combination performance of Pulmicort updrafts IV Solu-Medrol 40 mg every 8 hours Provide the patient incentive spirometer Continue the use of flutter valve Repeat chest x-ray in the morning was noted and shows some atelectatic changes in lung base bilaterally, another chest x-ray to be obtained tomorrow Echo was noted Cardiac rhythm is sinus and the patient is currently on metoprolol 25 mg twice daily and anticoagulation with Eliquis 5 mg p.o. twice a day Levemir insulin 11 units nightly Sliding scale insulin coverage Will continue to follow Time with Patient: Greater than 30
[2024-05-07 20:01] LABS: Glucose,Whole Blood 151 mg/dL (70-110)
[2024-05-07] MEDS: INSULIN GLARGINE (LANTUS) 100 UNIT/ML SYR SQ SCH (20:38)
[2024-05-08 06:00] LABS: Glucose,Whole Blood 209 mg/dL (70-110)
--- NOTE | 2024-05-08 07:14 | XR ---
EXAMINATION TYPE: XR chest 1V DATE OF EXAM: 05/08/2024 6:54 AM COMPARISON: 05/05/2024 CLINICAL INDICATION: Female, 73 years old with history of respiratory failure, TECHNIQUE: XR chest 1V view(s) obtained. FINDINGS: The heart size is enlarged. The pulmonary vasculature is prominent. There is an infiltrate developing at the right lower lobe. Correlate for atelectasis or pneumonia. Sm all bilateral pleural effusions may be present. IMPRESSION: 1. Worsening right lower lobe infiltrate. Correlate for atelectasis or pneumonia. 2. Small bilateral pleural effusions. 3. Cardiomegaly with mild prominence of the pulmonary vascular markings. [facility], , 05/08/2024 7:12 AM
[2024-05-08 11:48] LABS: Glucose,Whole Blood 131 mg/dL (70-110)
[2024-05-08] MEDS: FUROSEMIDE 10 MG/ML 4 ML VIAL IV SCH (13:10)
--- NOTE | 2024-05-08 13:20 | P.PN ---
Subjective Progress Note Date: 05/08/24 04/27/24 This is a 73-year-old white female who was admitted for acute respiratory failure with influenza A. She is currently on Airvo high flow oxygen and apparently went into atrial fibrillation last night. She remains on Cardizem drip this morning. She is still on consultation by cardiology and pulmonary critical care. She she complains of weakness and fatigue with shortness of breath but she denies any fever. She was assessed for anxiety and she states she has some irritability but anxiety is controlled. 04/28/2024 patient was seen lethargic today not very responsive on a BiPAP. She is currently in sinus rhythm and Cardizem drip has been stopped she had an episode of dark stool which was guaiac positive last p.m. her hemoglobin is 14.2 she does no signs of active bleeding and her vital signs are stable. Heparin was held because of the dark stool continue to monitor patient 04/29/2024 maintained on Tamiflu, BiPAP, 14/6, 40%,O2 sats mid to high 90s. Patient is currently full code with no intubation. Son at bedside, CODE STATUS further addressed as per PCP. Son wishes to discuss further with his family before making any changes. Afebrile, renal function stable. Vital signs stable, hemoglobin stable 14.1, no signs of active bleeding. 04/30/2024 continues on BiPAP 14/6 40% FiO2, maintaining O2 sats in the high 90s currently. Afebrile. CBC pending. Telemetry sinus rhythm. 05/01/2024 maintained on nebulized bronchodilators, IV steroids, Symbicort ,transitioned to Airvo 65% FiO2. Maintaining O2 sats in the low 90s. Afebrile, Tmax 100.8. Reports easier breathing today, feels weak. Denies chest pain, palpitations. 05/04/2024 Airvo decreased to 60% FiO2, maintaining O2 sats in the high 90s. Previous evaluation by PT reporting challenges with endurance ,recommending home care. Afebrile. Sodium 133, potassium 5.2, bicarb 39, BUN 27, creatinine 0.56. Blood sugars ranging from 146-189. 05/05/2024 Airvo 70% FiO2, maintaining O2 sats in the high 90s. Chest x-ray pending. Afebrile. 05/06/2024 FiO2 decreased to 65% high flow. Chest x-ray yesterday reported some slight increased linear opacities in the lung apices, possible small right apical pneumothorax ,bibasilar infiltrates slightly greater on the left. afebrile. 05/07. Patient seen and examined. Patient continues to be on heated high flow with a left FiO2 of 60% with a flow of 50 L. Currently sitting upright in the chair, eating her food. States shortness of breath is present on exertion. Denies shortness of breath at rest. Complaining of cough 05/08. Patient seen and examined. Patient continues to be on heated high flow. Discussed with patient daily currently for her to use her I-S and to sit more in the bed. Patient understands. Patient also bradycardic, dose of Lopressor decreased to 12.5 mg twice daily. Pulmonary ordered CT angio chest REVIEW OF SYSTEMS: CONSTITUTIONAL: No fever, no malaise,. CARDIOVASCULAR: No chest pain, no palpitations, no syncope. PULMONARY: As mentioned above GASTROINTESTINAL: No diarrhea, no nausea, no vomiting, no abdominal pain. NEUROLOGICAL: No headaches, no weakness, PHYSICAL EXAMINATION: GENERAL: The patient is alert and oriented x3, not in any acute distress. Well developed, well nourished. HEENT: Pupils are round and equally reacting to light. EOMI. No scleral icterus. No conjunctival pallor. Normocephalic, atraumatic. No pharyngeal erythema. No thyromegaly. CARDIOVASCULAR: S1 and S2 present. No murmurs, rubs, or gallops. PULMONARY: Diminished breath sounds at bases, coarse breath sounds, rhonchi audible ABDOMEN: Soft, nontender, nondistended, normoactive bowel sounds. No palpable organomegaly. MUSCULOSKELETAL: No joint swelling or deformity. EXTREMITIES: No cyanosis, clubbing, or pedal edema. NEUROLOGICAL: Gross neurological examination did not reveal any focal deficits. SKIN: No rashes. Assessment and plan Acute hypoxic respiratory failure secondary acute exacerbation of chronic obstructive pulmonary disease complicated by influenza A. Acute influenza A infection. Atrial fibrillation with RVR, converted to sinus rhythm Acute non-STEMI type II with troponin leak, echocardiogram shows a preserved LV function Chronic and ongoing tobacco dependence of greater than 40 years. Chronic obstructive pulmonary disease, not on treatment in the outpatient setting. Hypertension. Monitor vital signs Monitor CBC Monitor CMP Continue telemetry monitoring Continue oxygen supplementation Currently on heated high flow Aggressive bronchopulmonary hygiene Continue Eliquis Continue breathing treatments Continue IV Solu-Medrol Decrease Lopressor to 12.[address] angio chest ordered Pulmonology following Labs and medication were reviewed.. Continue same treatment. Continue with symptomatic treatment. Resume home medication. Monitor labs and vitals. DVT and GI prophylaxis. Further recommendations as per clinical course of the patient Dictation was produced using [employer] dictation software. please excuse any grammatical, word or spelling errors. Objective - Vital Signs Vital signs: Vital Signs Temp 98 F 05/08/24 07:45 Pulse 57 L 05/08/24 13:14 Resp 15 05/08/24 07:45 BP 125/70 05/08/24 13:14 Pulse Ox 95 05/08/24 13:14 FiO2 60 05/08/24 11:59 Intake & Output 05/07/24 05/08/24 05/08/24 18:59 06:59 18:59 Intake Total 540 Output Total 300 800 300 Balance 240 -800 -300 Weight 70 kg Intake: Oral 540 Output: Urine 300 800 300 Other: Voiding Method Bedside Commode Incontinent Bedside Commode # Voids 1 1 # Bowel Movements 1 1 1 - Labs CBC & Chem 7: 05/02/24 06:08 05/05/24 10:12 Labs: Abnormal Lab Results - Last 24 Hours (Table) 05/07/24 05/07/24 05/08/24 Range/Units 16:00 20:00 05:57 POC Glucose (mg/dL) 176 H 151 H 209 H (70-110) mg/dL 05/08/24 Range/Units 11:47 POC Glucose (mg/dL) 131 H (70-110) mg/dL Microbiology - Last 24 Hours (Table) 05/02/24 14:20 Blood Culture - Final Blood
--- NOTE | 2024-05-08 15:44 | P.PN ---
Subjective Progress Note Date: 05/08/24 This is a pleasant 73-year-old female patient with a known history of hypertension and chronic obstructive pulmonary disease, chronic and ongoing tobacco dependence of greater than 40 years who presented to the emergency room last evening with a 2 to 3-day history of increasing shortness of breath, cough and congestion. She was found to be hypoxemic and placed on 6 L high flow nasal cannula. Chest x-ray showed no acute pulmonary process. White count 7.9. Hemoglobin 14.9. Platelets 140. INR 1.0. D-dimer 0.56. Sodium 137. Potassium 5.0. Bicarb 28. BUN 15. Creatinine 0.71. Troponin 0.222, 0.262. Procalcitonin negative at 0.10. Viral screen is positive for influenza A. She was initiated on a heparin drip. She is seen today in consultation in the emergency department. She is currently sitting up on a stretcher. Awake and alert in no acute distress. She does have a dry nonproductive cough. Her main complaint is that of fatigue today. She is remains hypoxic now requiring 12 L high flow nasal cannula to maintain O2 saturation in the low 90s. Progress note dated April 27, 2024. 73-year-old female who was seen in consultation yesterday. Please see the note above. The patient is seen today in room 372. She continues on Airvo, with settings of 60 L/min, and FiO2 of 60%. She is getting saline at 5 cc an hour, and Cardizem drip at 5 mg an hour. She also continues on IV heparin. She apparently took her AIRVO device off, and her saturations on room air are only 8 4%. They did recover, once Airvo was placed back on the patient. Current labs include a white count of 10.9, hemoglobin 14.5, hematocrit 46.5, and a platelet count of 142,000. PTT is 53.6. Sodium 134, potassium 4.8, chlorides 99, CO2 32, BUN 22, creatinine 0.72. AST was 47. ALT is 36. Procalcitonin level was 0.10 and repeat was 0.07. Chest x-ray shows no acute pulmonary process. Progress note dated April 28, 2024. 73-year-old female seen today in room 372. The patient continues on BiPAP, with settings of 14/6, and 40%. She is getting saline at 20 cc an hour. The patient did test positive for influenza. Current laboratory data includes a white count 7.4, hemoglobin 14.1, hematocrit 47, and a platelet count of 122,000. Blood gases were done and show pO2 of 101, pCO2 of 81, pH of 7.25. They were done on 55% oxygen. Sodium 137, potassium 5.2, chlorides 101, CO2 33, BUN 31, creatinine 0.76. Glucose 130. Albumin is 3.2. A chest x-ray today shows no acute pulmonary process. Progress note dated April 29, 2024. 73-year-old female seen today in room 372. The patient is currently on BiPAP, with settings of 14/6, and 40%. She continues on Tamiflu. The patient is a DO NOT INTUBATE patient. Labs today are reviewed. Sodium 141, potassium 4.7, chlorides 100, CO2 36, BUN 23, and creatinine 0.64. Calcium is 8.8. Glucose is 88. Chest x-ray from yesterday, does not show an acute pulmonary process. Progress note dated April 30, 2024. 73-year-old female seen today in room 372. The patient is currently on Airvo, with settings of 50 L/min and an FiO2 of 65%. When not on Airvo, the patient is on BiPAP, with settings of 14/6, and 40%. The patient is not receiving any IV fluids. The patient is a DO NOT INTUBATE patient. Current laboratory data includes a white count 3.4, hemoglobin 13.4, hematocrit 43.9, and a platelet count of 107,000. No additional laboratory data as noted. Progress note dated May 01, 2024. 73-year-old female seen today in room 372. The patient is currently on Airvo, with settings of 50 L/min, and an FiO2 60%. She did spend a small amount of time on BiPAP, yesterday. The patient is not receiving any IV fluids. She is sitting in a chair next to the hospital bed. She actually looks relatively comfortable. The patient is a full code, with instructions, including not to be intubated. No new labs today, other than a glucose of 164. Progress note dated May 02, 2024. 73-year-old female seen today in room 372. The patient continues on Airvo, 60 L/min, with an FiO2 of 70%. No IV fluids. The patient is resting comfortably in bed. She does not appear to have any shortness of breath or difficulty carlitos thing. Current laboratory data includes a white count 5.9, hemoglobin 13.7, hematocrit 43.7, and a platelet count of 107,000. Sodium 135, potassium 5.1, chlorides 94, CO2 34, BUN 27, and creatinine 0.53. Glucose is 275. Calcium 8.8. Hemoglobin A1c 6.1. Chest x-ray shows cardiomegaly, with scattered reticular opacities, consistent with atypical pneumonia. Progress note dated May 03, 2024. 73-year-old female seen today in room 372. The patient continues on Airvo, with settings of 60 L/min, and FiO2 70%. The patient was admitted with a COPD exacerbation, triggered or exacerbated by influenza A. Clinically, she is doing about the same. She is laying flat in bed. No respiratory distress. Laboratory data includes a sodium 135, potassium 4.7, 31, CO2 38, anion gap 6, BUN 24, and creatinine 0.6. Glucose is 156. Calcium is 9. X-ray from yesterday, has been reviewed, as above. On today's evaluation of 05/04/2024, the patient is being seen for a follow-up. This 73-year-old female patient remains quite hypoxic, still on Airvo at 60 L and FiO2 has been dropped down to 50%. Noted the patient is an acute COPD exacerbation. The same time, the patient was diagnosed having an acute influenza A infection. The patient remains on Airvo for oxygenation. The patient remains on Symbicort, DuoNeb treatments [id number] and the patient is also on IV Solu-Medrol 40 mg every 8 hours. Remains on Levemir insulin 10 units in addition to a sliding scale insulin coverage. Noted the patient is not oxygen dependent on outpatient basis. She is a chronic smoker. Blood work from today shows a BUN of 27 with a creatinine of 0.5. Sodium levels at 133, potassium is at 4.2, serum bicarb is at 39. Chloride level is at 92. The patient had a echocardiogram on 04/27/2024 that showed mild LVH with preserved systolic function. Chest x-ray from 05/02/2024 showed cardiomegaly with some scattered reticular opacities with possibility of a mild viral pneumonia. On 05/05/2024, the patient is being seen for a follow-up. This morning, the patient remains on Airvo at 50 L and FiO2 of 70%. Continues to have a congested cough. Able to bring a much sputum. Afebrile. A follow-up chest x-ray was done on 05/05/2024 and the chest x-ray showed mild bibasilar infiltrate and segmental and subsegmental atelectatic changes. Questionable right apical pneumothorax was also noted. The patient otherwise has no specific complaints. She remains on DuoNeb nebulizer treatments [id number]. She remains on Symbicort. She remains on IV Solu-Medrol 40 mg every 8 hours. Sodium levels at 135, bicarb is at 42 with a BUN of 24 and a creatinine of 0.6. The echocardiogram from 04/27/2024 showed preserved LV function. She remains on Levemir insulin for blood sugar control. On 05/06/2024, the patient remains dependent on Airvo. On today's evaluation, the patient is on 50 L and FiO2 of 65%. Using incentive spirometer. Using a flutter valve. No significant improvement in patient's oxygenation over the past few days. Based on that, a CAT scan of the chest will be ordered. Remains on DuoNeb updrafts. Remains on Perforomist and Pulmicort nebulized twice a day and IV Solu-Medrol 40 mg every 8 hours. The rest of the medication remains unchanged. The patient remains on Levemir insulin 11 units daily in addition to sliding scale coverage. On 05/07/2024, the patient remains on Airvo at 50 L and FiO2 of 60%. Using incentive spirometer. Using a flutter valve. Continues to have some congested cough. Unable to bring up much of sputum. No new complaints otherwise. She is post influenza A infection. The patient completed a course of Tamiflu. Remains on IV Solu-Medrol 40 g every 8 hours. Remains on anticoagulation with Eliquis. Unable to obtain a CAT scan of the chest yesterday as the patient remains on Airvo. She remains on DuoNeb updrafts. She remains on a combination of Perforomist and Pulmicort nebulized treatments twice a day. Rest of the medications remain unchanged. On 05/08/2024, the patient is being seen for a follow-up. Clinically, the patien t has no specific complaints and she is feeling well. Nevertheless, she continues to be hypoxic. On today's evaluation, she is on a Airvo 50 L with an FiO2 of 60%. She continues to have some crackles in lung bases along with diminished breath sounds and scattered expiratory wheezes. Unable to obtain a CAT scan of the chest for now. Remains on bronchodilators. Remains on DuoNeb updrafts. Remains on a combination Perforomist and Pulmicort. Remains on IV Solu-Medrol 4 mg every 8 hours. Will give the patient a trial of diuresis. Labs were checked from few days back. No significant abnormalities. Most recent chest x-ray was reviewed on 05/08/2024 and it shows some limited right lower lobe pulmonary infiltrate/atelectasis and small bilateral effusions and cardiomegaly with prominent pulm vascular markings. Based on that, the patient will be subjected to diuresis over the next 24 hours and her response will be monitored. She is awake and alert and sitting up in a chair. Objective - Vital Signs Vital signs: Vital Signs Temp 98 F 05/08/24 07:45 Pulse 50 L 05/08/24 15:12 Resp 18 05/08/24 15:12 BP 110/67 05/08/24 15:12 Pulse Ox 95 05/08/24 15:12 FiO2 60 05/08/24 11:59 Intake & Output 05/07/24 05/08/24 05/08/24 18:59 06:59 18:59 Intake Total 540 Output Total 091 872 7701 Balance 240 -800 -1200 Weight 70 kg Intake: Oral 540 Output: Urine 594 134 [id number] Other: Voiding Method Bedside Commode Incontinent Bedside Commode # Voids 1 1 # Bowel Movements 1 1 1 - Exam GENERAL EXAM: Alert, does not, weak 73-year-old female, on Airvo at 50 L with an FiO2 of 60% HEAD: Normocephalic. EYES: Normal reaction of pupils, equal size. NOSE: Clear with pink turbinates. THROAT: No erythema or exudates. NECK: No masses, no JVD. CHEST: No chest wall deformity. LUNGS: Equal air entry with bilateral end expiratory wheeze, diminished. CVS: S1 and S2 normal with no audible murmur, regular rhythm. ABDOMEN: No hepatosplenomegaly, normal bowel sounds, no guarding or rigidity. SPINE: No scoliosis or deformity SKIN: No rashes CENTRAL NERVOUS SYSTEM: No focal deficits, tone is normal in all 4 extremities. EXTREMITIES: There is no peripheral edema. No clubbing, no cyanosis. Peripheral pulses are intact. - Labs CBC & Chem 7: 05/02/24 06:08 05/05/24 10:12 Labs: Abnormal Lab Results - Last 24 Hours (Table) 05/07/24 05/07/24 05/08/24 Range/Units 16:00 20:00 05:57 POC Glucose (mg/dL) 176 H 151 H 209 H (70-110) mg/dL 05/08/24 Range/Units 11:47 POC Glucose (mg/dL) 131 H (70-110) mg/dL Microbiology - Last 24 Hours (Table) 05/02/24 14:20 Blood Culture - Final Blood Assessment and Plan Plan: Acute hypoxic respiratory failure secondary to an acute exacerbation of chronic obstructive pulmonary disease complicated by influenza A. Rule out underlying acute lung injury post influenza A infection as the patient remains hypoxic, and she remains Airvo dependent. She remains on IV Solu-Medrol. Patient is on anticoagulation with Eliquis and pulm embolism is felt to be less likely. She does have background COPD. A follow-up chest x-ray was obtained and it showed atelectatic changes right lung base, possibly small effusion and pulm vessel congestion and cardiomegaly. Acute hypoxic respiratory failure currently on 50 L with an FiO2 of 60 %, no significant close the patient oxygenation over the past several days. Acute influenza A infection. Atrial fibrillation with RVR, converted to sinus rhythm Acute non-STEMI type II with troponin leak, echocardiogram shows a preserved LV function Chronic and ongoing tobacco dependence of greater than 40 years. Chronic obstructive pulmonary disease, not on treatment in the outpatient setting. Hypertension. Plan: Titrate oxygen flow to maintain saturation above 90%, currently still on Airvo Continue DuoNeb nebulizer treatments [id number] Continue combination performance of Pulmicort updrafts IV Solu-Medrol 40 mg every 8 hours Provide the patient incentive spirometer Continue the use of flutter valve Repeat chest x-ray i was reviewed from 05/08/2024 Echo was noted Cardiac rhythm is sinus and the patient is currently on metoprolol 25 mg twice daily and anticoagulation with Eliquis 5 mg p.o. twice a day Levemir insulin 11 units nightly Sliding scale insulin coverage Start the patient on Lasix 40 mg IV every 12 hours and monitor the fluid balance and monitor the oxygenation Will continue to follow Time with Patient: Greater than 30
[2024-05-08 16:47] LABS: Glucose,Whole Blood 263 mg/dL (70-110)
[2024-05-08 20:19] LABS: Glucose,Whole Blood 228 mg/dL (70-110)
[2024-05-08] MEDS: METOPROLOL SUCCINATE (ER) 25 MG TAB.ER.24H PO SCH (20:46)
[2024-05-09 06:21] LABS: Glucose,Whole Blood 138 mg/dL (70-110)
[2024-05-09 07:08] LABS: HCT 47.9 % (34.0-46.0); HGB 15.2 gm/dL (11.4-16.0); MCHC 31.7 g/dL (31.0-37.0); MCV 94.4 fL (80.0-100.0); Mean Platelet Volume 9.6; RBC 5.07 m/uL (3.80-5.40); RDW 13.1 % (11.5-15.5); WBC 13.6 k/uL (3.8-10.6)
[2024-05-09 07:13] LABS: Platelet Count 223 k/uL (150-450)
[2024-05-09 07:14] LABS: ALT 26 U/L (4-34); AST 14 U/L (14-36); African American GFR (CKD) >90 (>60 ml/min/1.73 sqM); Albumin 3.1 g/dL (3.5-5.0); Alkaline Phosphatase 45 U/L (38-126); Anion Gap 4 mmol/L; Blood Urea Nitrogen 38 mg/dL (7-17); Calcium 8.7 mg/dL (8.4-10.2); Carbon Dioxide 37 mmol/L (22-30); Chloride 92 mmol/L (98-107); Glucose 140 mg/dL (74-99); Non-African American GFR(CKD) 86 (>60 ml/min/1.73 sqM); Potassium 4.8 mmol/L (3.5-5.1); Sodium 133 mmol/L (137-145); Total Bilirubin 0.7 mg/dL (0.2-1.3); Total Protein 5.7 g/dL (6.3-8.2)
[2024-05-09 07:36] LABS: Lymphocytes # (M) 0.68 k/uL (1.0-4.8); Monocytes # (M) 0.14 k/uL (0-1.0); Neutrophils # (M) 12.78 k/uL (1.3-7.7); Neutrophils % (M) 94 %; Nucleated Red Blood Cells 0 /100 WBC (0-0); Total Cells Counted 100
[2024-05-09 11:10] LABS: Glucose,Whole Blood 200 mg/dL (70-110)
[2024-05-09] MEDS: FUROSEMIDE 10 MG/ML 4 ML VIAL IV STA (12:06)
--- NOTE | 2024-05-09 13:28 | P.PN ---
Subjective Progress Note Date: 05/09/24 04/27/24 This is a 73-year-old white female who was admitted for acute respiratory failure with influenza A. She is currently on Airvo high flow oxygen and apparently went into atrial fibrillation last night. She remains on Cardizem drip this morning. She is still on consultation by cardiology and pulmonary critical care. She she complains of weakness and fatigue with shortness of breath but she denies any fever. She was assessed for anxiety and she states she has some irritability but anxiety is controlled. 04/28/2024 patient was seen lethargic today not very responsive on a BiPAP. She is currently in sinus rhythm and Cardizem drip has been stopped she had an episode of dark stool which was guaiac positive last p.m. her hemoglobin is 14.2 she does no signs of active bleeding and her vital signs are stable. Heparin was held because of the dark stool continue to monitor patient 04/29/2024 maintained on Tamiflu, BiPAP, 14/6, 40%,O2 sats mid to high 90s. Patient is currently full code with no intubation. Son at bedside, CODE STATUS further addressed as per PCP. Son wishes to discuss further with his family before making any changes. Afebrile, renal function stable. Vital signs stable, hemoglobin stable 14.1, no signs of active bleeding. 04/30/2024 continues on BiPAP 14/6 40% FiO2, maintaining O2 sats in the high 90s currently. Afebrile. CBC pending. Telemetry sinus rhythm. 05/01/2024 maintained on nebulized bronchodilators, IV steroids, Symbicort ,transitioned to Airvo 65% FiO2. Maintaining O2 sats in the low 90s. Afebrile, Tmax 100.8. Reports easier breathing today, feels weak. Denies chest pain, palpitations. 05/04/2024 Airvo decreased to 60% FiO2, maintaining O2 sats in the high 90s. Previous evaluation by PT reporting challenges with endurance ,recommending home care. Afebrile. Sodium 133, potassium 5.2, bicarb 39, BUN 27, creatinine 0.56. Blood sugars ranging from 146-189. 05/05/2024 Airvo 70% FiO2, maintaining O2 sats in the high 90s. Chest x-ray pending. Afebrile. 05/06/2024 FiO2 decreased to 65% high flow. Chest x-ray yesterday reported some slight increased linear opacities in the lung apices, possible small right apical pneumothorax ,bibasilar infiltrates slightly greater on the left. afebrile. 05/07. Patient seen and examined. Patient continues to be on heated high flow with a left FiO2 of 60% with a flow of 50 L. Currently sitting upright in the chair, eating her food. States shortness of breath is present on exertion. Denies shortness of breath at rest. Complaining of cough 05/08. Patient seen and examined. Patient continues to be on heated high flow. Discussed with patient daily currently for her to use her I-S and to sit more in the bed. Patient understands. Patient also bradycardic, dose of Lopressor decreased to 12.5 mg twice daily. Pulmonary ordered CT angio chest 05/09. Patient seen and examined. Currently on heated high flow Airvo 45/55%. Patient received 2 doses of IV Lasix overnight denies any shortness of breath at rest. Gets short of breath on exertion.. REVIEW OF SYSTEMS: CONSTITUTIONAL: No fever, no malaise,. CARDIOVASCULAR: No chest pain, no palpitations, no syncope. PULMONARY: As mentioned above GASTROINTESTINAL: No diarrhea, no nausea, no vomiting, no abdominal pain. NEUROLOGICAL: No headaches, no weakness, PHYSICAL EXAMINATION: GENERAL: The patient is alert and oriented x3, not in any acute distress. Well developed, well nourished. HEENT: Pupils are round and equally reacting to light. EOMI. No scleral icterus. No conjunctival pallor. Normocephalic, atraumatic. No pharyngeal erythema. No thyromegaly. CARDIOVASCULAR: S1 and S2 present. No murmurs, rubs, or gallops. PULMONARY: Diminished breath sounds at bases, coarse breath sounds, rhonchi audible ABDOMEN: Soft, nontender, nondistended, normoactive bowel sounds. No palpable organomegaly. MUSCULOSKELETAL: No joint swelling or deformity. EXTREMITIES: No cyanosis, clubbing, or pedal edema. NEUROLOGICAL: Gross neurological examination did not reveal any focal deficits. SKIN: No rashes. Assessment and plan Acute hypoxic respiratory failure secondary acute exacerbation of chronic obstructive pulmonary disease complicated by influenza A. Acute influenza A infection. Atrial fibrillation with RVR, converted to sinus rhythm Acute non-STEMI type II with troponin leak, echocardiogram shows a preserved LV function Chronic and ongoing tobacco dependence of greater than 40 years. Chronic obstructive pulmonary disease, not on treatment in the outpatient setting. Hypertension. Monitor vital signs Monitor CBC Monitor CMP Continue telemetry monitoring Continue oxygen supplementation Currently on heated high flow Aggressive bronchopulmonary hygiene Continue Eliquis Continue breathing treatments Continue IV Solu-Medrol Continue Lopressor 12.[address] angio chest ordered Pulmonology following Labs and medication were reviewed.. Continue same treatment. Continue with symptomatic treatment. Resume home medication. Monitor labs and vitals. DVT and GI prophylaxis. Further recommendations as per clinical course of the patient Dictation was produced using [employer] dictation software. please excuse any grammatical, word or spelling errors. Objective - Vital Signs Vital signs: Vital Signs Temp 98.2 F 05/09/24 08:45 Pulse 59 L 05/09/24 08:45 Resp 19 05/09/24 08:45 BP 123/61 05/09/24 08:45 Pulse Ox 94 L 05/09/24 08:45 FiO2 55 05/09/24 08:25 Intake & Output 05/08/24 05/09/24 05/09/24 18:59 06:59 18:59 Intake Total 0 Output Total 1500 1600 Balance -1500 -1600 0 Intake: Oral 0 Output: Urine 1500 1600 Other: Voiding Method Bedside Commode Bedside Commode # Voids 2 # Bowel Movements 1 - Labs CBC & Chem 7: 05/09/24 05:31 05/09/24 05:31 Labs: Abnormal Lab Results - Last 24 Hours (Table) 05/08/24 05/08/24 05/08/24 Range/Units 11:47 16:46 20:10 WBC (3.8-10.6) k/uL Hct (34.0-46.0) % Neutrophils # (Manual) (1.3-7.7) k/uL Lymphocytes # (Manual) (1.0-4.8) k/uL Sodium (137-145) mmol/L Chloride (98-107) mmol/L Carbon Dioxide (22-30) mmol/L BUN (7-17) mg/dL Glucose (74-99) mg/dL POC Glucose (mg/dL) 131 H 263 H 228 H (70-110) mg/dL Total Protein (6.3-8.2) g/dL Albumin (3.5-5.0) g/dL 05/09/24 05/09/24 05/09/24 Range/Units 05:31 05:31 06:13 WBC 13.6 H (3.8-10.6) k/uL Hct 47.9 H (34.0-46.0) % Neutrophils # (Manual) 12.78 H (1.3-7.7) k/uL Lymphocytes # (Manual) 0.68 L (1.0-4.8) k/uL Sodium 133 L (137-145) mmol/L Chloride 92 L (98-107) mmol/L Carbon Dioxide 37 H (22-30) mmol/L BUN 38 H (7-17) mg/dL Glucose 140 H (74-99) mg/dL POC Glucose (mg/dL) 138 H (70-110) mg/dL Total Protein 5.7 L (6.3-8.2) g/dL Albumin 3.1 L (3.5-5.0) g/dL
--- NOTE | 2024-05-09 14:26 | P.PN ---
Subjective Progress Note Date: 05/09/24 This is a pleasant 73-year-old female patient with a known history of hypertension and chronic obstructive pulmonary disease, chronic and ongoing tobacco dependence of greater than 40 years who presented to the emergency room last evening with a 2 to 3-day history of increasing shortness of breath, cough and congestion. She was found to be hypoxemic and placed on 6 L high flow nasal cannula. Chest x-ray showed no acute pulmonary process. White count 7.9. Hemoglobin 14.9. Platelets 140. INR 1.0. D-dimer 0.56. Sodium 137. Potassium 5.0. Bicarb 28. BUN 15. Creatinine 0.71. Troponin 0.222, 0.262. Procalcitonin negative at 0.10. Viral screen is positive for influenza A. She was initiated on a heparin drip. She is seen today in consultation in the emergency department. She is currently sitting up on a stretcher. Awake and alert in no acute distress. She does have a dry nonproductive cough. Her main complaint is that of fatigue today. She is remains hypoxic now requiring 12 L high flow nasal cannula to maintain O2 saturation in the low 90s. Progress note dated April 27, 2024. 73-year-old female who was seen in consultation yesterday. Please see the note above. The patient is seen today in room 372. She continues on Airvo, with settings of 60 L/min, and FiO2 of 60%. She is getting saline at 5 cc an hour, and Cardizem drip at 5 mg an hour. She also continues on IV heparin. She apparently took her AIRVO device off, and her saturations on room air are only 8 4%. They did recover, once Airvo was placed back on the patient. Current labs include a white count of 10.9, hemoglobin 14.5, hematocrit 46.5, and a platelet count of 142,000. PTT is 53.6. Sodium 134, potassium 4.8, chlorides 99, CO2 32, BUN 22, creatinine 0.72. AST was 47. ALT is 36. Procalcitonin level was 0.10 and repeat was 0.07. Chest x-ray shows no acute pulmonary process. Progress note dated April 28, 2024. 73-year-old female seen today in room 372. The patient continues on BiPAP, with settings of 14/6, and 40%. She is getting saline at 20 cc an hour. The patient did test positive for influenza. Current laboratory data includes a white count 7.4, hemoglobin 14.1, hematocrit 47, and a platelet count of 122,000. Blood gases were done and show pO2 of 101, pCO2 of 81, pH of 7.25. They were done on 55% oxygen. Sodium 137, potassium 5.2, chlorides 101, CO2 33, BUN 31, creatinine 0.76. Glucose 130. Albumin is 3.2. A chest x-ray today shows no acute pulmonary process. Progress note dated April 29, 2024. 73-year-old female seen today in room 372. The patient is currently on BiPAP, with settings of 14/6, and 40%. She continues on Tamiflu. The patient is a DO NOT INTUBATE patient. Labs today are reviewed. Sodium 141, potassium 4.7, chlorides 100, CO2 36, BUN 23, and creatinine 0.64. Calcium is 8.8. Glucose is 88. Chest x-ray from yesterday, does not show an acute pulmonary process. Progress note dated April 30, 2024. 73-year-old female seen today in room 372. The patient is currently on Airvo, with settings of 50 L/min and an FiO2 of 65%. When not on Airvo, the patient is on BiPAP, with settings of 14/6, and 40%. The patient is not receiving any IV fluids. The patient is a DO NOT INTUBATE patient. Current laboratory data includes a white count 3.4, hemoglobin 13.4, hematocrit 43.9, and a platelet count of 107,000. No additional laboratory data as noted. Progress note dated May 01, 2024. 73-year-old female seen today in room 372. The patient is currently on Airvo, with settings of 50 L/min, and an FiO2 60%. She did spend a small amount of time on BiPAP, yesterday. The patient is not receiving any IV fluids. She is sitting in a chair next to the hospital bed. She actually looks relatively comfortable. The patient is a full code, with instructions, including not to be intubated. No new labs today, other than a glucose of 164. Progress note dated May 02, 2024. 73-year-old female seen today in room 372. The patient continues on Airvo, 60 L/min, with an FiO2 of 70%. No IV fluids. The patient is resting comfortably in bed. She does not appear to have any shortness of breath or difficulty carlitos thing. Current laboratory data includes a white count 5.9, hemoglobin 13.7, hematocrit 43.7, and a platelet count of 107,000. Sodium 135, potassium 5.1, chlorides 94, CO2 34, BUN 27, and creatinine 0.53. Glucose is 275. Calcium 8.8. Hemoglobin A1c 6.1. Chest x-ray shows cardiomegaly, with scattered reticular opacities, consistent with atypical pneumonia. Progress note dated May 03, 2024. 73-year-old female seen today in room 372. The patient continues on Airvo, with settings of 60 L/min, and FiO2 70%. The patient was admitted with a COPD exacerbation, triggered or exacerbated by influenza A. Clinically, she is doing about the same. She is laying flat in bed. No respiratory distress. Laboratory data includes a sodium 135, potassium 4.7, 31, CO2 38, anion gap 6, BUN 24, and creatinine 0.6. Glucose is 156. Calcium is 9. X-ray from yesterday, has been reviewed, as above. On today's evaluation of 05/04/2024, the patient is being seen for a follow-up. This 73-year-old female patient remains quite hypoxic, still on Airvo at 60 L and FiO2 has been dropped down to 50%. Noted the patient is an acute COPD exacerbation. The same time, the patient was diagnosed having an acute influenza A infection. The patient remains on Airvo for oxygenation. The patient remains on Symbicort, DuoNeb treatments [id number] and the patient is also on IV Solu-Medrol 40 mg every 8 hours. Remains on Levemir insulin 10 units in addition to a sliding scale insulin coverage. Noted the patient is not oxygen dependent on outpatient basis. She is a chronic smoker. Blood work from today shows a BUN of 27 with a creatinine of 0.5. Sodium levels at 133, potassium is at 4.2, serum bicarb is at 39. Chloride level is at 92. The patient had a echocardiogram on 04/27/2024 that showed mild LVH with preserved systolic function. Chest x-ray from 05/02/2024 showed cardiomegaly with some scattered reticular opacities with possibility of a mild viral pneumonia. On 05/05/2024, the patient is being seen for a follow-up. This morning, the patient remains on Airvo at 50 L and FiO2 of 70%. Continues to have a congested cough. Able to bring a much sputum. Afebrile. A follow-up chest x-ray was done on 05/05/2024 and the chest x-ray showed mild bibasilar infiltrate and segmental and subsegmental atelectatic changes. Questionable right apical pneumothorax was also noted. The patient otherwise has no specific complaints. She remains on DuoNeb nebulizer treatments [id number]. She remains on Symbicort. She remains on IV Solu-Medrol 40 mg every 8 hours. Sodium levels at 135, bicarb is at 42 with a BUN of 24 and a creatinine of 0.6. The echocardiogram from 04/27/2024 showed preserved LV function. She remains on Levemir insulin for blood sugar control. On 05/06/2024, the patient remains dependent on Airvo. On today's evaluation, the patient is on 50 L and FiO2 of 65%. Using incentive spirometer. Using a flutter valve. No significant improvement in patient's oxygenation over the past few days. Based on that, a CAT scan of the chest will be ordered. Remains on DuoNeb updrafts. Remains on Perforomist and Pulmicort nebulized twice a day and IV Solu-Medrol 40 mg every 8 hours. The rest of the medication remains unchanged. The patient remains on Levemir insulin 11 units daily in addition to sliding scale coverage. On 05/07/2024, the patient remains on Airvo at 50 L and FiO2 of 60%. Using incentive spirometer. Using a flutter valve. Continues to have some congested cough. Unable to bring up much of sputum. No new complaints otherwise. She is post influenza A infection. The patient completed a course of Tamiflu. Remains on IV Solu-Medrol 40 g every 8 hours. Remains on anticoagulation with Eliquis. Unable to obtain a CAT scan of the chest yesterday as the patient remains on Airvo. She remains on DuoNeb updrafts. She remains on a combination of Perforomist and Pulmicort nebulized treatments twice a day. Rest of the medications remain unchanged. On 05/08/2024, the patient is being seen for a follow-up. Clinically, the patien t has no specific complaints and she is feeling well. Nevertheless, she continues to be hypoxic. On today's evaluation, she is on a Airvo 50 L with an FiO2 of 60%. She continues to have some crackles in lung bases along with diminished breath sounds and scattered expiratory wheezes. Unable to obtain a CAT scan of the chest for now. Remains on bronchodilators. Remains on DuoNeb updrafts. Remains on a combination Perforomist and Pulmicort. Remains on IV Solu-Medrol 4 mg every 8 hours. Will give the patient a trial of diuresis. Labs were checked from few days back. No significant abnormalities. Most recent chest x-ray was reviewed on 05/08/2024 and it shows some limited right lower lobe pulmonary infiltrate/atelectasis and small bilateral effusions and cardiomegaly with prominent pulm vascular markings. Based on that, the patient will be subjected to diuresis over the next 24 hours and her response will be monitored. She is awake and alert and sitting up in a chair. 05/09/2024, patient is feeling somewhat improved. She remains on Airvo and on today's evaluation, she is on 4 L and FiO2 of 50%. Current pulse ox is 91%. Remains on bronchodilators. Remains on steroids. She remains on IV Solu-Medrol 40 mg every 8 hours. She remains on a combination performance of Pulmicort options. She is using the flutter valve. She is using the incentive spirometer. She was given diuretics over the past 24 hours and the patient's fluid balance is -3.1 L. She continues to produce excellent urine output. The white cell count is 13.6, hemoglobin 18.2 with a platelet count of 223. BUN 38 with a creatinine of 0.7. Sodium levels at 133. Denies having any specific complaints. Objective - Vital Signs Vital signs: Vital Signs Temp 98.2 F 05/09/24 08:45 Pulse 62 05/09/24 11:21 Resp 19 05/09/24 08:45 BP 123/61 05/09/24 08:45 Pulse Ox 94 L 05/09/24 11:24 FiO2 55 05/09/24 11:24 Intake & Output 05/08/24 05/09/24 05/09/24 18:59 06:59 18:59 Intake Total 0 Output Total 1500 1600 Balance -1500 -1600 0 Intake: Oral 0 Output: Urine 1500 1600 Other: Voiding Method Bedside Commode Bedside Commode # Voids 2 # Bowel Movements 1 - Exam GENERAL EXAM: Alert, does not, weak 73-year-old female, on Airvo at 40 L with FiO2 of 50% HEAD: Normocephalic. EYES: Normal reaction of pupils, equal size. NOSE: Clear with pink turbinates. THROAT: No erythema or exudates. NECK: No masses, no JVD. CHEST: No chest wall deformity. LUNGS: Equal air entry with bilateral end expiratory wheeze, diminished. CVS: S1 and S2 normal with no audible murmur, regular rhythm. ABDOMEN: No hepatosplenomegaly, normal bowel sounds, no guarding or rigidity. SPINE: No scoliosis or deformity SKIN: No rashes CENTRAL NERVOUS SYSTEM: No focal deficits, tone is normal in all 4 extremities. EXTREMITIES: There is no peripheral edema. No clubbing, no cyanosis. Peripheral pulses are intact. - Labs CBC & Chem 7: 05/09/24 05:31 05/09/24 05:31 Labs: Abnormal Lab Results - Last 24 Hours (Table) 05/08/24 05/08/24 05/08/24 Range/Units 11:47 16:46 20:10 WBC (3.8-10.6) k/uL Hct (34.0-46.0) % Neutrophils # (Manual) (1.3-7.7) k/uL Lymphocytes # (Manual) (1.0-4.8) k/uL Sodium (137-145) mmol/L Chloride (98-107) mmol/L Carbon Dioxide (22-30) mmol/L BUN (7-17) mg/dL Glucose (74-99) mg/dL POC Glucose (mg/dL) 131 H 263 H 228 H (70-110) mg/dL Total Protein (6.3-8.2) g/dL Albumin (3.5-5.0) g/dL 05/09/24 05/09/24 05/09/24 Range/Units 05:31 05:31 06:13 WBC 13.6 H (3.8-10.6) k/uL Hct 47.9 H (34.0-46.0) % Neutrophils # (Manual) 12.78 H (1.3-7.7) k/uL Lymphocytes # (Manual) 0.68 L (1.0-4.8) k/uL Sodium 133 L (137-145) mmol/L Chloride 92 L (98-107) mmol/L Carbon Dioxide 37 H (22-30) mmol/L BUN 38 H (7-17) mg/dL Glucose 140 H (74-99) mg/dL POC Glucose (mg/dL) 138 H (70-110) mg/dL Total Protein 5.7 L (6.3-8.2) g/dL Albumin 3.1 L (3.5-5.0) g/dL 05/09/24 Range/Units 11:06 WBC (3.8-10.6) k/uL Hct (34.0-46.0) % Neutrophils # (Manual) (1.3-7.7) k/uL Lymphocytes # (Manual) (1.0-4.8) k/uL Sodium (137-145) mmol/L Chloride (98-107) mmol/L Carbon Dioxide (22-30) mmol/L BUN (7-17) mg/dL Glucose (74-99) mg/dL POC Glucose (mg/dL) 200 H (70-110) mg/dL Total Protein (6.3-8.2) g/dL Albumin (3.5-5.0) g/dL Assessment and Plan Plan: Acute hypoxic respiratory failure secondary to an acute exacerbation of chronic obstructive pulmonary disease complicated by influenza A. Rule out underlying acute lung injury post influenza A infection as the patient remains hypoxic, and she remains Airvo dependent. She remains on IV Solu-Medrol. Patient is on anticoagulation with Eliquis and pulm embolism is felt to be less likely. She does have background COPD. A follow-up chest x-ray was obtained and it showed atelectatic changes right lung base, possibly small effusion and pulm vessel congestion and cardiomegaly. Acute hypoxic respiratory failure currently on 40 L with an FiO2 of 50 %, oxygenation is gradually improving Acute influenza A infection. Atrial fibrillation with RVR, converted to sinus rhythm Acute non-STEMI type II with troponin leak, echocardiogram shows a preserved LV function Chronic and ongoing tobacco dependence of greater than 40 years. Chronic obstructive pulmonary disease, not on treatment in the outpatient setting. Hypertension. Plan: Titrate oxygen flow to maintain saturation above 90%, currently still on Airvo Continue DuoNeb nebulizer treatments [id number] Continue combination performance of Pulmicort updrafts IV Solu-Medrol 40 mg every 8 hours Provide the patient incentive spirometer Continue the use of flutter valve Repeat chest x-ray i was reviewed from 05/08/2024 Echo was noted Cardiac rhythm is sinus and the patient is currently on metoprolol 25 mg twice daily and anticoagulation with Eliquis 5 mg p.o. twice a day Levemir insulin 11 units nightly Sliding scale insulin coverage Continue diuretics with IV Lasix. The patient is negative fluid balance of 3.1 L. Will continue monitoring the electrolytes. Will continue to follow
[2024-05-09 16:15] LABS: Glucose,Whole Blood 186 mg/dL (70-110)
[2024-05-09 20:41] LABS: Glucose,Whole Blood 224 mg/dL (70-110)
[2024-05-10 06:24] LABS: Glucose,Whole Blood 159 mg/dL (70-110)
--- NOTE | 2024-05-10 09:58 | CT ---
EXAMINATION TYPE: CT angio chest DATE OF EXAM: 05/10/2024 9:48 AM COMPARISON: None. CLINICAL INDICATION: Female, 73 years old with history of persistent hypoxia, persistent hypoxia, inf luenza a, short of breath TECHNIQUE: CT of the chest is performed on a spiral scan at 2 mm thick sections. Study is performed with intravenous contrast timed for evaluation for pulmonary embolism. This will limit additional po rtions of the evaluation. 3-D MIP images reconstructed by the technologist are reviewed on the compu ter in the coronal and sagittal planes. Contrast used:54 mL of Isovue 370 with IV Contrast, (none if empty) Oral contrast used: (none if empty) CT DLP: 278.8 mGycm, Automated exposure control for dose reduction was used. FINDINGS: No persistent filling defects are evident to suggest an acute pulmonary embolism. No mediastinal or hilar adenopathy enlarged by CT criteria is evident. The ascending aorta diameter at the level of the main pulmonary artery is 3.0 cm. The main pulmonary artery diameter at the bifurcation is 2.6 cm. There is a consolidation with air bronchograms in the posterior right lung base. Minimal infiltrate a t the left base. Correlate for compressive atelectasis. Pneumonia could be considered. Small bilatera l pleural effusions are present. Limited CT sections were through the upper abdomen. Bilateral adrenal gland thickening is present me asuring 1.9 cm on the left and 1.6 cm in the right. IMPRESSION: 1. No acute pulmonary embolism. 2. Small bilateral pleural effusions. Bibasilar infiltrates are present which may be on the basis of atelectasis or pneumonia. [facility], , 05/10/2024 9:56 AM
[2024-05-10 12:01] LABS: Glucose,Whole Blood 164 mg/dL (70-110)
--- NOTE | 2024-05-10 14:20 | P.PN ---
Subjective Progress Note Date: 05/10/24 This is a pleasant 73-year-old female patient with a known history of hypertension and chronic obstructive pulmonary disease, chronic and ongoing tobacco dependence of greater than 40 years who presented to the emergency room last evening with a 2 to 3-day history of increasing shortness of breath, cough and congestion. She was found to be hypoxemic and placed on 6 L high flow nasal cannula. Chest x-ray showed no acute pulmonary process. White count 7.9. Hemoglobin 14.9. Platelets 140. INR 1.0. D-dimer 0.56. Sodium 137. Potassium 5.0. Bicarb 28. BUN 15. Creatinine 0.71. Troponin 0.222, 0.262. Procalcitonin negative at 0.10. Viral screen is positive for influenza A. She was initiated on a heparin drip. She is seen today in consultation in the emergency department. She is currently sitting up on a stretcher. Awake and alert in no acute distress. She does have a dry nonproductive cough. Her main complaint is that of fatigue today. She is remains hypoxic now requiring 12 L high flow nasal cannula to maintain O2 saturation in the low 90s. Progress note dated April 27, 2024. 73-year-old female who was seen in consultation yesterday. Please see the note above. The patient is seen today in room 372. She continues on Airvo, with settings of 60 L/min, and FiO2 of 60%. She is getting saline at 5 cc an hour, and Cardizem drip at 5 mg an hour. She also continues on IV heparin. She apparently took her AIRVO device off, and her saturations on room air are only 8 4%. They did recover, once Airvo was placed back on the patient. Current labs include a white count of 10.9, hemoglobin 14.5, hematocrit 46.5, and a platelet count of 142,000. PTT is 53.6. Sodium 134, potassium 4.8, chlorides 99, CO2 32, BUN 22, creatinine 0.72. AST was 47. ALT is 36. Procalcitonin level was 0.10 and repeat was 0.07. Chest x-ray shows no acute pulmonary process. Progress note dated April 28, 2024. 73-year-old female seen today in room 372. The patient continues on BiPAP, with settings of 14/6, and 40%. She is getting saline at 20 cc an hour. The patient did test positive for influenza. Current laboratory data includes a white count 7.4, hemoglobin 14.1, hematocrit 47, and a platelet count of 122,000. Blood gases were done and show pO2 of 101, pCO2 of 81, pH of 7.25. They were done on 55% oxygen. Sodium 137, potassium 5.2, chlorides 101, CO2 33, BUN 31, creatinine 0.76. Glucose 130. Albumin is 3.2. A chest x-ray today shows no acute pulmonary process. Progress note dated April 29, 2024. 73-year-old female seen today in room 372. The patient is currently on BiPAP, with settings of 14/6, and 40%. She continues on Tamiflu. The patient is a DO NOT INTUBATE patient. Labs today are reviewed. Sodium 141, potassium 4.7, chlorides 100, CO2 36, BUN 23, and creatinine 0.64. Calcium is 8.8. Glucose is 88. Chest x-ray from yesterday, does not show an acute pulmonary process. Progress note dated April 30, 2024. 73-year-old female seen today in room 372. The patient is currently on Airvo, with settings of 50 L/min and an FiO2 of 65%. When not on Airvo, the patient is on BiPAP, with settings of 14/6, and 40%. The patient is not receiving any IV fluids. The patient is a DO NOT INTUBATE patient. Current laboratory data includes a white count 3.4, hemoglobin 13.4, hematocrit 43.9, and a platelet count of 107,000. No additional laboratory data as noted. Progress note dated May 01, 2024. 73-year-old female seen today in room 372. The patient is currently on Airvo, with settings of 50 L/min, and an FiO2 60%. She did spend a small amount of time on BiPAP, yesterday. The patient is not receiving any IV fluids. She is sitting in a chair next to the hospital bed. She actually looks relatively comfortable. The patient is a full code, with instructions, including not to be intubated. No new labs today, other than a glucose of 164. Progress note dated May 02, 2024. 73-year-old female seen today in room 372. The patient continues on Airvo, 60 L/min, with an FiO2 of 70%. No IV fluids. The patient is resting comfortably in bed. She does not appear to have any shortness of breath or difficulty carlitos thing. Current laboratory data includes a white count 5.9, hemoglobin 13.7, hematocrit 43.7, and a platelet count of 107,000. Sodium 135, potassium 5.1, chlorides 94, CO2 34, BUN 27, and creatinine 0.53. Glucose is 275. Calcium 8.8. Hemoglobin A1c 6.1. Chest x-ray shows cardiomegaly, with scattered reticular opacities, consistent with atypical pneumonia. Progress note dated May 03, 2024. 73-year-old female seen today in room 372. The patient continues on Airvo, with settings of 60 L/min, and FiO2 70%. The patient was admitted with a COPD exacerbation, triggered or exacerbated by influenza A. Clinically, she is doing about the same. She is laying flat in bed. No respiratory distress. Laboratory data includes a sodium 135, potassium 4.7, 31, CO2 38, anion gap 6, BUN 24, and creatinine 0.6. Glucose is 156. Calcium is 9. X-ray from yesterday, has been reviewed, as above. On today's evaluation of 05/04/2024, the patient is being seen for a follow-up. This 73-year-old female patient remains quite hypoxic, still on Airvo at 60 L and FiO2 has been dropped down to 50%. Noted the patient is an acute COPD exacerbation. The same time, the patient was diagnosed having an acute influenza A infection. The patient remains on Airvo for oxygenation. The patient remains on Symbicort, DuoNeb treatments [id number] and the patient is also on IV Solu-Medrol 40 mg every 8 hours. Remains on Levemir insulin 10 units in addition to a sliding scale insulin coverage. Noted the patient is not oxygen dependent on outpatient basis. She is a chronic smoker. Blood work from today shows a BUN of 27 with a creatinine of 0.5. Sodium levels at 133, potassium is at 4.2, serum bicarb is at 39. Chloride level is at 92. The patient had a echocardiogram on 04/27/2024 that showed mild LVH with preserved systolic function. Chest x-ray from 05/02/2024 showed cardiomegaly with some scattered reticular opacities with possibility of a mild viral pneumonia. On 05/05/2024, the patient is being seen for a follow-up. This morning, the patient remains on Airvo at 50 L and FiO2 of 70%. Continues to have a congested cough. Able to bring a much sputum. Afebrile. A follow-up chest x-ray was done on 05/05/2024 and the chest x-ray showed mild bibasilar infiltrate and segmental and subsegmental atelectatic changes. Questionable right apical pneumothorax was also noted. The patient otherwise has no specific complaints. She remains on DuoNeb nebulizer treatments [id number]. She remains on Symbicort. She remains on IV Solu-Medrol 40 mg every 8 hours. Sodium levels at 135, bicarb is at 42 with a BUN of 24 and a creatinine of 0.6. The echocardiogram from 04/27/2024 showed preserved LV function. She remains on Levemir insulin for blood sugar control. On 05/06/2024, the patient remains dependent on Airvo. On today's evaluation, the patient is on 50 L and FiO2 of 65%. Using incentive spirometer. Using a flutter valve. No significant improvement in patient's oxygenation over the past few days. Based on that, a CAT scan of the chest will be ordered. Remains on DuoNeb updrafts. Remains on Perforomist and Pulmicort nebulized twice a day and IV Solu-Medrol 40 mg every 8 hours. The rest of the medication remains unchanged. The patient remains on Levemir insulin 11 units daily in addition to sliding scale coverage. On 05/07/2024, the patient remains on Airvo at 50 L and FiO2 of 60%. Using incentive spirometer. Using a flutter valve. Continues to have some congested cough. Unable to bring up much of sputum. No new complaints otherwise. She is post influenza A infection. The patient completed a course of Tamiflu. Remains on IV Solu-Medrol 40 g every 8 hours. Remains on anticoagulation with Eliquis. Unable to obtain a CAT scan of the chest yesterday as the patient remains on Airvo. She remains on DuoNeb updrafts. She remains on a combination of Perforomist and Pulmicort nebulized treatments twice a day. Rest of the medications remain unchanged. On 05/08/2024, the patient is being seen for a follow-up. Clinically, the patien t has no specific complaints and she is feeling well. Nevertheless, she continues to be hypoxic. On today's evaluation, she is on a Airvo 50 L with an FiO2 of 60%. She continues to have some crackles in lung bases along with diminished breath sounds and scattered expiratory wheezes. Unable to obtain a CAT scan of the chest for now. Remains on bronchodilators. Remains on DuoNeb updrafts. Remains on a combination Perforomist and Pulmicort. Remains on IV Solu-Medrol 4 mg every 8 hours. Will give the patient a trial of diuresis. Labs were checked from few days back. No significant abnormalities. Most recent chest x-ray was reviewed on 05/08/2024 and it shows some limited right lower lobe pulmonary infiltrate/atelectasis and small bilateral effusions and cardiomegaly with prominent pulm vascular markings. Based on that, the patient will be subjected to diuresis over the next 24 hours and her response will be monitored. She is awake and alert and sitting up in a chair. 05/09/2024, patient is feeling somewhat improved. She remains on Airvo and on today's evaluation, she is on 4 L and FiO2 of 50%. Current pulse ox is 91%. Remains on bronchodilators. Remains on steroids. She remains on IV Solu-Medrol 40 mg every 8 hours. She remains on a combination performance of Pulmicort options. She is using the flutter valve. She is using the incentive spirometer. She was given diuretics over the past 24 hours and the patient's fluid balance is -3.1 L. She continues to produce excellent urine output. The white cell count is 13.6, hemoglobin 18.2 with a platelet count of 223. BUN 38 with a creatinine of 0.7. Sodium levels at 133. Denies having any specific complaints. On 05/10/2024, the patient's oxygenation is improved. The patient is currently off Airvo and she is maintained on 7 L of oxygen by nasal cannula. Feeling well. No specific complaints. She was diuresed adequately over the past 48 hours and the patient is in negative fluid balance. Diuretics have been discontinued. She continues to use incentive spirometer. She continues to use the flutter valve. She remains on bronchodilators and steroids. CT of the chest was done this morning that showed no evidence of any pulmonary embolism. The patient has small bilateral effusions and atelectasis in the lung bases right more than left. Awake and alert and communicating. Denies having any oth er new complaints for now. Objective - Vital Signs Vital signs: Vital Signs Temp 98.2 F 05/10/24 08:25 Pulse 72 05/10/24 08:56 Resp 18 05/10/24 08:25 BP 122/66 05/10/24 08:25 Pulse Ox 97 05/10/24 08:56 FiO2 40 05/09/24 20:36 Intake & Output 05/09/24 05/10/24 05/10/24 18:59 06:59 18:59 Intake Total 490 10 Output Total 600 300 Balance -110 -300 10 Weight 84.5 kg Intake: IV 10 10 .9 10 10 Oral 480 Output: Urine 600 300 Other: # Voids 1 # Bowel Movements 1 1 - Exam GENERAL EXAM: Alert, does not, weak 73-year-old female, off Airvo currently on 7 L of oxygen by nasal cannula HEAD: Normocephalic. EYES: Normal reaction of pupils, equal size. NOSE: Clear with pink turbinates. THROAT: No erythema or exudates. NECK: No masses, no JVD. CHEST: No chest wall deformity. LUNGS: Equal air entry with bilateral end expiratory wheeze, diminished. CVS: S1 and S2 normal with no audible murmur, regular rhythm. ABDOMEN: No hepatosplenomegaly, normal bowel sounds, no guarding or rigidity. SPINE: No scoliosis or deformity SKIN: No rashes CENTRAL NERVOUS SYSTEM: No focal deficits, tone is normal in all 4 extremities. EXTREMITIES: There is no peripheral edema. No clubbing, no cyanosis. Peripheral pulses are intact. - Labs CBC & Chem 7: 05/09/24 05:31 05/09/24 05:31 Labs: Abnormal Lab Results - Last 24 Hours (Table) 05/09/24 05/09/24 05/10/24 Range/Units 16:14 20:22 06:11 POC Glucose (mg/dL) 186 H 224 H 159 H (70-110) mg/dL Assessment and Plan Plan: Acute hypoxic respiratory failure secondary to an acute exacerbation of chronic obstructive pulmonary disease complicated by influenza A. The patient was Airvo dependent for an extended of time. Finally, we were able to wean her off the Airvo and currently she is on 7 L of oxygen by nasal cannula. CTA was noted and the patient has COPD and some atelectatic changes in lung base bilaterally. Clinically improving. Acute hypoxic respiratory failure currently on 7 L of oxygen by nasal cannula, oxygenation is gradually improving Acute influenza A infection. Atrial fibrillation with RVR, converted to sinus rhythm Acute non-STEMI type II with troponin leak, echocardiogram shows a preserved LV function Chronic and ongoing tobacco dependence of greater than 40 years. Chronic obstructive pulmonary disease, not on treatment in the outpatient setting. Hypertension. Plan: Titrate oxygen flow to maintain saturation above 90%, currently still on Airvo Continue DuoNeb nebulizer treatments [id number] Continue combination performance of Pulmicort updrafts IV Solu-Medrol 40 mg every 8 hours Provide the patient incentive spirometer Continue the use of flutter valve CTA was noted Echo was noted Cardiac rhythm is sinus and the patient is currently on metoprolol 25 mg twice daily and anticoagulation with Eliquis 5 mg p.o. twice a day Levemir insulin 11 units nightly Sliding scale insulin coverage Stop diuretics Will continue to follow Time with Patient: Greater than 30
--- NOTE | 2024-05-10 14:55 | P.PN ---
Subjective Progress Note Date: 05/10/24 04/27/24 This is a 73-year-old white female who was admitted for acute respiratory failure with influenza A. She is currently on Airvo high flow oxygen and apparently went into atrial fibrillation last night. She remains on Cardizem drip this morning. She is still on consultation by cardiology and pulmonary critical care. She she complains of weakness and fatigue with shortness of breath but she denies any fever. She was assessed for anxiety and she states she has some irritability but anxiety is controlled. 04/28/2024 patient was seen lethargic today not very responsive on a BiPAP. She is currently in sinus rhythm and Cardizem drip has been stopped she had an episode of dark stool which was guaiac positive last p.m. her hemoglobin is 14.2 she does no signs of active bleeding and her vital signs are stable. Heparin was held because of the dark stool continue to monitor patient 04/29/2024 maintained on Tamiflu, BiPAP, 14/6, 40%,O2 sats mid to high 90s. Patient is currently full code with no intubation. Son at bedside, CODE STATUS further addressed as per PCP. Son wishes to discuss further with his family before making any changes. Afebrile, renal function stable. Vital signs stable, hemoglobin stable 14.1, no signs of active bleeding. 04/30/2024 continues on BiPAP 14/6 40% FiO2, maintaining O2 sats in the high 90s currently. Afebrile. CBC pending. Telemetry sinus rhythm. 05/01/2024 maintained on nebulized bronchodilators, IV steroids, Symbicort ,transitioned to Airvo 65% FiO2. Maintaining O2 sats in the low 90s. Afebrile, Tmax 100.8. Reports easier breathing today, feels weak. Denies chest pain, palpitations. 05/04/2024 Airvo decreased to 60% FiO2, maintaining O2 sats in the high 90s. Previous evaluation by PT reporting challenges with endurance ,recommending home care. Afebrile. Sodium 133, potassium 5.2, bicarb 39, BUN 27, creatinine 0.56. Blood sugars ranging from 146-189. 05/05/2024 Airvo 70% FiO2, maintaining O2 sats in the high 90s. Chest x-ray pending. Afebrile. 05/06/2024 FiO2 decreased to 65% high flow. Chest x-ray yesterday reported some slight increased linear opacities in the lung apices, possible small right apical pneumothorax ,bibasilar infiltrates slightly greater on the left. afebrile. 05/07. Patient seen and examined. Patient continues to be on heated high flow with a left FiO2 of 60% with a flow of 50 L. Currently sitting upright in the chair, eating her food. States shortness of breath is present on exertion. Denies shortness of breath at rest. Complaining of cough 05/08. Patient seen and examined. Patient continues to be on heated high flow. Discussed with patient daily currently for her to use her I-S and to sit more in the bed. Patient understands. Patient also bradycardic, dose of Lopressor decreased to 12.5 mg twice daily. Pulmonary ordered CT angio chest 05/09. Patient seen and examined. Currently on heated high flow Airvo 45/55%. Patient received 2 doses of IV Lasix overnight denies any shortness of breath at rest. Gets short of breath on exertion.. 05/10. Patient seen and examined. Patient has been switched from heated high flow to oxygen via nasal cannula. States she feels much better. Breathing has improved. REVIEW OF SYSTEMS: CONSTITUTIONAL: No fever, no malaise,. CARDIOVASCULAR: No chest pain, no palpitations, no syncope. PULMONARY: As mentioned above GASTROINTESTINAL: No diarrhea, no nausea, no vomiting, no abdominal pain. NEUROLOGICAL: No headaches, no weakness, PHYSICAL EXAMINATION: GENERAL: The patient is alert and oriented x3, not in any acute distress. Well developed, well nourished. HEENT: Pupils are round and equally reacting to light. EOMI. No scleral icterus. No conjunctival pallor. Normocephalic, atraumatic. No pharyngeal erythema. No thyromegaly. CARDIOVASCULAR: S1 and S2 present. No murmurs, rubs, or gallops. PULMONARY: Diminished breath sounds at bases, coarse breath sounds, rhonchi audible ABDOMEN: Soft, nontender, nondistended, normoactive bowel sounds. No palpable organomegaly. MUSCULOSKELETAL: No joint swelling or deformity. EXTREMITIES: No cyanosis, clubbing, or pedal edema. NEUROLOGICAL: Gross neurological examination did not reveal any focal deficits. SKIN: No rashes. Assessment and plan Acute hypoxic respiratory failure secondary acute exacerbation of chronic obstructive pulmonary disease complicated by influenza A. Acute influenza A infection. Atrial fibrillation with RVR, converted to sinus rhythm Acute non-STEMI type II with troponin leak, echocardiogram shows a preserved LV function Chronic and ongoing tobacco dependence of greater than 40 years. Chronic obstructive pulmonary disease, not on treatment in the outpatient setting. Hypertension. Monitor vital signs Monitor CBC Monitor CMP Continue telemetry monitoring Continue oxygen supplementation Aggressive bronchopulmonary hygiene Continue Eliquis Continue breathing treatments Continue IV Solu-Medrol Continue Lopressor 12.5 mg twice daily Pulmonology following Labs and medication were reviewed.. Continue same treatment. Continue with symptomatic treatment. Resume home medication. Monitor labs and vitals. DVT and GI prophylaxis. Further recommendations as per clinical course of the patient Dictation was produced using [employer] dictation software. please excuse any grammatical, word or spelling errors. Objective - Vital Signs Vital signs: Vital Signs Temp 97.6 F 05/10/24 12:30 Pulse 57 L 05/10/24 12:30 Resp 18 05/10/24 12:30 BP 116/68 05/10/24 12:30 Pulse Ox 94 L 05/10/24 12:30 FiO2 40 05/09/24 20:36 Intake & Output 05/09/24 05/10/24 05/10/24 18:59 06:59 18:59 Intake Total 490 10 Output Total 600 300 Balance -110 -300 10 Weight 84.5 kg Intake: IV 10 10 .9 10 10 Oral 480 Output: Urine 600 300 Other: # Voids 1 # Bowel Movements 1 1 - Labs CBC & Chem 7: 05/09/24 05:31 05/09/24 05:31 Labs: Abnormal Lab Results - Last 24 Hours (Table) 05/09/24 05/09/24 05/10/24 Range/Units 16:14 20:22 06:11 POC Glucose (mg/dL) 186 H 224 H 159 H (70-110) mg/dL 05/10/24 Range/Units 12:00 POC Glucose (mg/dL) 164 H (70-110) mg/dL
[2024-05-10 16:55] LABS: Glucose,Whole Blood 155 mg/dL (70-110)
[2024-05-10 20:01] LABS: Glucose,Whole Blood 293 mg/dL (70-110)
[2024-05-11 05:56] LABS: Glucose,Whole Blood 87 mg/dL (70-110)
[2024-05-11] MEDS: FLUCONAZOLE 150 MG TAB PO SCH (09:42)
--- NOTE | 2024-05-11 10:05 | P.PN ---
Subjective Progress Note Date: 05/11/24 04/27/24 This is a 73-year-old white female who was admitted for acute respiratory failure with influenza A. She is currently on Airvo high flow oxygen and apparently went into atrial fibrillation last night. She remains on Cardizem drip this morning. She is still on consultation by cardiology and pulmonary critical care. She she complains of weakness and fatigue with shortness of breath but she denies any fever. She was assessed for anxiety and she states she has some irritability but anxiety is controlled. 04/28/2024 patient was seen lethargic today not very responsive on a BiPAP. She is currently in sinus rhythm and Cardizem drip has been stopped she had an episode of dark stool which was guaiac positive last p.m. her hemoglobin is 14.2 she does no signs of active bleeding and her vital signs are stable. Heparin was held because of the dark stool continue to monitor patient 04/29/2024 maintained on Tamiflu, BiPAP, 14/6, 40%,O2 sats mid to high 90s. Patient is currently full code with no intubation. Son at bedside, CODE STATUS further addressed as per PCP. Son wishes to discuss further with his family before making any changes. Afebrile, renal function stable. Vital signs stable, hemoglobin stable 14.1, no signs of active bleeding. 04/30/2024 continues on BiPAP 14/6 40% FiO2, maintaining O2 sats in the high 90s currently. Afebrile. CBC pending. Telemetry sinus rhythm. 05/01/2024 maintained on nebulized bronchodilators, IV steroids, Symbicort ,transitioned to Airvo 65% FiO2. Maintaining O2 sats in the low 90s. Afebrile, Tmax 100.8. Reports easier breathing today, feels weak. Denies chest pain, palpitations. 05/04/2024 Airvo decreased to 60% FiO2, maintaining O2 sats in the high 90s. Previous evaluation by PT reporting challenges with endurance ,recommending home care. Afebrile. Sodium 133, potassium 5.2, bicarb 39, BUN 27, creatinine 0.56. Blood sugars ranging from 146-189. 05/05/2024 Airvo 70% FiO2, maintaining O2 sats in the high 90s. Chest x-ray pending. Afebrile. 05/06/2024 maintained on nebulized bronchodilators, IV steroids, Pulmicort .FiO2 decreased to 65% high flow. Chest x-ray yesterday reported some slight increased linear opacities in the lung apices, possible small right apical pneumothorax ,bibasilar infiltrates slightly greater on the left. blood sugars increasing on steroids, up into the 200s..afebrile. 05/11/2024 CTA completed yesterday reporting no acute pulmonary embolism, small bilateral pleural effusions, bibasilar infiltrates-atelectasis as per pulmonary's review with right greater than left..diuretics discontinued, last dose yesterday .maintaining O2 sats of 99% on 6 L nasal cannula. O2 decreased to 3 L, pending O2 sat. reports she has been ambulating in her room, denies exertional dyspnea. Denies lightheadedness, dizziness or focal deficits. denies chest pain, palpitations or shortness of breath. Tmax 99.6. Objective - Vital Signs Vital signs: Vital Signs Temp 99.5 F 05/11/24 03:44 Pulse 58 L 05/11/24 08:56 Resp 20 05/11/24 08:56 BP 156/83 05/11/24 03:44 Pulse Ox 99 05/11/24 08:37 FiO2 40 05/09/24 20:36 Intake & Output 05/10/24 05/11/24 05/11/24 18:59 06:59 18:59 Intake Total 128 222 Output Total 400 Balance -272 222 Weight 77.5 kg Intake: IV 10 .9 10 Oral 118 222 Output: Urine 400 Other: # Voids 2 # Bowel Movements 1 - Exam GENERAL: Sitting up in bed, alert and oriented x 3, no acute distress HEENT: Atraumatic, normocephalic. Pupils are equal, round. Conjunctivae are clear. Neck supple, no JVD. RESPIRATORY: Unlabored, equal air entry, clear to auscultation, bilateral bases diminished CARDIOVASCULAR: S1, S2, regular rate and rhythm. GASTROINTESTINAL: Soft, nondistended, nontender. Positive bowel sounds INTEGUMENTARY: No cyanosis. No jaundice. No rashes noted. EXTREMITIES: 2+ peripheral pulses. no edema, no cyanosis, no clubbing, no calf tenderness noted. NEUROLOGIC: Cranial nerves II-XII intact. No focal deficits. - Labs CBC & Chem 7: 02/22/25 05:31 05/09/24 05:31 Labs: Abnormal Lab Results - Last 24 Hours (Table) 05/10/24 05/10/24 05/10/24 Range/Units 12:00 16:53 20:00 POC Glucose (mg/dL) 164 H 155 H 293 H (70-110) mg/dL Assessment and Plan Assessment: 1) Afib currently in sinus rhythm Current Visit: Yes Status: Acute Code(s): I48.91 - UNSPECIFIED ATRIAL FIBRILLATION SNOMED Code(s): 50553245 (2) Acute exacerbation of chronic obstructive pulmonary disease (COPD) Current Visit: Yes Status: Acute Code(s): J44.1 - CHRONIC OBSTRUCTIVE PULMONARY DISEASE W (ACUTE) EXACERBATION SNOMED Code(s): 080261584 (3) Influenza A Current Visit: Yes Status: Acute Code(s): J10.1 - FLU DUE TO OTH IDENT INFLUENZA VIRUS W OTH RESP MANIFEST SNOMED Code(s): 480406270 (4) NSTEMI (non-ST elevated myocardial infarction) Current Visit: Yes Status: Acute Code(s): I21.4 - NON-ST ELEVATION (NSTEMI) MYOCARDIAL INFARCTION SNOMED Code(s): 75160987 (5) acute hypoxic respiratory failure secondary to acute COPD exacerbation and influenza A. (6) thrombocytopenia (7) possible oral candidiasis Plan: Continue on current medication regimen ,monitoring and symptomatic treatment. Patient has completed greater than 1 week of quarantine, DC quarantine for influenza A. Ambulate in hallway with assist. Patient complaining of mouth pain, couple doses of Diflucan ordered. discharge planning in progress for tomorrow pending continued improvement, final DC recommendations and clearance per pulmonary. Continue aggressive pulmonary toileting with flutter valve, nebulized bronchodilators, pulmicort and steroids. The impression and plan of care has been dictated as directed. : I performed a history and examination of this patient, discussed the same with the dictator. I agree with the dictator's note ,documented as a scribe. Any additional findings or plans will be noted.
[2024-05-11 11:37] LABS: Glucose,Whole Blood 156 mg/dL (70-110)
[2024-05-11 15:36] VITALS: BMI 28.4
[2024-05-11 15:53] LABS: Glucose,Whole Blood 208 mg/dL (70-110)
--- NOTE | 2024-05-11 17:22 | P.PN ---
Subjective Progress Note Date: 05/11/24 05/09/2024, patient is feeling somewhat improved. She remains on Airvo and on today's evaluation, she is on 4 L and FiO2 of 50%. Current pulse ox is 91%. Remains on bronchodilators. Remains on steroids. She remains on IV Solu-Medrol 40 mg every 8 hours. She remains on a combination performance of Pulmicort options. She is using the flutter valve. She is using the incentive spirometer. She was given diuretics over the past 24 hours and the patient's fluid balance is -3.1 L. She continues to produce excellent urine output. The white cell count is 13.6, hemoglobin 18.2 with a platelet count of 223. BUN 38 with a creatinine of 0.7. Sodium levels at 133. Denies having any specific complaints. On 05/10/2024, the patient's oxygenation is improved. The patient is currently off Airvo and she is maintained on 7 L of oxygen by nasal cannula. Feeling well. No specific complaints. She was diuresed adequately over the past 48 hours and the patient is in negative fluid balance. Diuretics have been discontinued. She continues to use incentive spirometer. She continues to use the flutter valve. She remains on bronchodilators and steroids. CT of the chest was done this morning that showed no evidence of any pulmonary embolism. The patient has small bilateral effusions and atelectasis in the lung bases right more than left. Awake and alert and communicating. Denies having any o ther new complaints for now. The patient is seen today May 11, 2024 in follow-up on the selective care unit. She is currently sitting up in bed. Awake and alert in no acute distress. Doing quite a bit better. She is down to oxygen at 4 L/min per nasal cannula. No worsening shortness of breath, cough or congestion. Glucose 208. Ofe on DuoNeb inhalations, Pulmicort and performance inhalations, Solu-Medrol. Anticoagulated with Eliquis. Objective - Vital Signs Vital signs: Vital Signs Temp 98.8 F 05/11/24 16:25 Pulse 62 05/11/24 16:33 Resp 18 05/11/24 16:33 BP 120/70 05/11/24 16:25 Pulse Ox 92 L 05/11/24 16:25 FiO2 40 05/09/24 20:36 Intake & Output 05/10/24 05/11/24 05/11/24 18:59 06:59 18:59 Intake Total 128 222 360 Output Total 400 Balance -272 222 360 Weight 77.5 kg 77.5 kg Intake: IV 10 .9 10 Oral 118 222 360 Output: Urine 400 Other: Voiding Method Bedside Commode # Voids 2 1 # Bowel Movements 1 1 - Exam GENERAL EXAM: Alert, pleasant 73-year-old female, on 4 L nasal cannula, up in a chair, comfortable in no apparent distress. HEAD: Normocephalic. EYES: Normal reaction of pupils, equal size. NOSE: Clear with pink turbinates. THROAT: No erythema or exudates. NECK: No masses, no JVD. CHEST: No chest wall deformity. LUNGS: Equal air entry with no crackles, wheeze, rhonchi or dullness. CVS: S1 and S2 normal with no audible murmur, regular rhythm. ABDOMEN: No hepatosplenomegaly, normal bowel sounds, no guarding or rigidity. SPINE: No scoliosis or deformity SKIN: No rashes CENTRAL NERVOUS SYSTEM: No focal deficits, tone is normal in all 4 extremities. EXTREMITIES: There is no peripheral edema. No clubbing, no cyanosis. Peripheral pulses are intact. - Labs CBC & Chem 7: 05/09/24 05:31 05/09/24 05:31 Labs: Abnormal Lab Results - Last 24 Hours (Table) 05/10/24 05/11/24 05/11/24 Range/Units 20:00 11:35 15:51 POC Glucose (mg/dL) 293 H 156 H 208 H (70-110) mg/dL Assessment and Plan Assessment: Acute hypoxic respiratory failure secondary to an acute exacerbation of chronic obstructive pulmonary disease complicated by influenza A. Procalcitonin negative. D-dimer negative. CTA was noted and the patient has COPD and some atelectatic changes in lung base bilaterally. Initially requiring Airvo high flow oxygen and currently down to 4 L/min per nasal cannula Acute influenza A infection Atrial fibrillation with rapid ventricular response, converted to sinus rhythm Acute non-ST segment elevation myocardial infarction, preserved LV function Chronic and ongoing tobacco dependence of greater than 40 years Chronic obstructive pulmonary disease, not on treatment in the outpatient setting Hypertension Plan: The patient was seen and evaluated Imaging, labs and medications reviewed Improved and on 4 L nasal cannula Titrate down the FiO2 as tolerated Require home oxygen Plan is for discharge in a.m. I have personally seen and examined the patient, performed the documentation and the assessment and plan as written. Number of minutes spent on the visit: 10 Dictation was produced using [employer] ([employer]) dictation software. Please excuse any grammatical, word or spelling errors.
[2024-05-11 19:59] LABS: Glucose,Whole Blood 169 mg/dL (70-110)
[2024-05-11] MEDS: SYMBICORT 160-4.5 MCG INHALER INHALATION SCH (21:35)
[2024-05-12 05:35] VITALS: TEMP 97.8
[2024-05-12 06:02] LABS: Glucose,Whole Blood 110 mg/dL (70-110)
[2024-05-12] MEDS: predniSONE 20 MG TAB PO SCH (09:03)
[2024-05-12 10:53] VITALS: RESP 16
[2024-05-12 11:22] LABS: Glucose,Whole Blood 84 mg/dL (70-110)
--- NOTE | 2024-05-12 11:24 | P.DS ---
Providers Date of admission: 04/25/24 23:17 Expected date of discharge: 05/12/24 Attending physician: Ra Posada Consults: 04/25/24 23:18 Consult Physician Routine Consulting Provider: Prieto Cobos Consult Reason/Comments: NSTEMI Do you want consulting provider notified?: Yes Consult Physician Routine Consulting Provider: Sunitha Cook Consult Reason/Comments: COPD exacerbation. Influenza A Do you want consulting provider notified?: Yes Primary care physician: Ra Posada [place] Hospital Course: Final Diagnosis: 1) Afib currently in sinus rhythm Current Visit: Yes Status: Acute Code(s): I48.91 - UNSPECIFIED ATRIAL FIBRILLATION SNOMED Code(s): 04970497 (2) Acute exacerbation of chronic obstructive pulmonary disease (COPD) Current Visit: Yes Status: Acute Code(s): J44.1 - CHRONIC OBSTRUCTIVE PULMONARY DISEASE W (ACUTE) EXACERBATION SNOMED Code(s): 519563691 (3) Influenza A Current Visit: Yes Status: Acute Code(s): J10.1 - FLU DUE TO OTH IDENT INFLUENZA VIRUS W OTH RESP MANIFEST SNOMED Code(s): 747752479 (4) NSTEMI (non-ST elevated myocardial infarction) Current Visit: Yes Status: Acute Code(s): I21.4 - NON-ST ELEVATION (NSTEMI) MYOCARDIAL INFARCTION SNOMED Code(s): 81627241 (5) acute hypoxic respiratory failure secondary to acute COPD exacerbation and influenza A. (6) thrombocytopenia (7) possible oral candidiasis (8) hemoglobin A1c 6.1, continue monitoring outpatient in clinic with PCP (9) ongoing nicotine dependence, smoking cessation reinforced (10) hypertension Hospital course: 04/27/24 This is a 73-year-old white female who was admitted for acute respiratory failure with influenza A. She is currently on Airvo high flow oxygen and apparently went into atrial fibrillation last night. She remains on Cardizem drip this morning. She is still on consultation by cardiology and pulmonary critical care. She she complains of weakness and fatigue with shortness of breath but she denies any fever. She was assessed for anxiety and she states she has some irritability but anxiety is controlled. 04/28/2024 patient was seen lethargic today not very responsive on a BiPAP. She is currently in sinus rhythm and Cardizem drip has been stopped she had an episode of dark stool which was guaiac positive last p.m. her hemoglobin is 14.2 she does no signs of active bleeding and her vital signs are stable. Heparin was held because of the dark stool continue to monitor patient 04/29/2024 maintained on Tamiflu, BiPAP, 14/6, 40%,O2 sats mid to high 90s. Patient is currently full code with no intubation. Son at bedside, CODE STATUS further addressed as per PCP. Son wishes to discuss further with his family before making any changes. Afebrile, renal function stable. Vital signs stable, hemoglobin stable 14.1, no signs of active bleeding. 04/30/2024 continues on BiPAP 14/6 40% FiO2, maintaining O2 sats in the high 90s currently. Afebrile. CBC pending. Telemetry sinus rhythm. 05/01/2024 maintained on nebulized bronchodilators, IV steroids, Symbicort ,transitioned to Airvo 65% FiO2. Maintaining O2 sats in the low 90s. Afebrile, Tmax 100.8. Reports easier breathing today, feels weak. Denies chest pain, palpitations. 05/04/2024 Airvo decreased to 60% FiO2, maintaining O2 sats in the high 90s. Previous evaluation by PT reporting challenges with endurance ,recommending home care. Afebrile. Sodium 133, potassium 5.2, bicarb 39, BUN 27, creatinine 0.56. Blood sugars ranging from 146-189. 05/05/2024 Airvo 70% FiO2, maintaining O2 sats in the high 90s. Chest x-ray pending. Afebrile. 05/06/2024 maintained on nebulized bronchodilators, IV steroids, Pulmicort .FiO2 decreased to 65% high flow. Chest x-ray yesterday reported some slight increased linear opacities in the lung apices, possible small right apical pneumothorax ,bibasilar infiltrates slightly greater on the left. blood sugars increasing on steroids, up into the 200s..afebrile. 05/11/2024 CTA completed yesterday reporting no acute pulmonary embolism, small bilateral pleural effusions, bibasilar infiltrates-atelectasis as per pulmonary's review with right greater than left..diuretics discontinued, last dose yesterday .maintaining O2 sats of 99% on 6 L nasal cannula. O2 decreased to 3 L, pending O2 sat. reports she has been ambulating in her room, denies exertional dyspnea. Denies lightheadedness, dizziness or focal deficits. denies chest pain, palpitations or shortness of breath. Tmax 99.6. 05/12/2024 significant clinical improvement. Afebrile. FiO2 titrated to 3 L nasal cannula maintaining O2 sats of 96%. Denies increased shortness of breath. denies exertional dyspnea. Denies chest pain, palpitations or shortness of breath. Yesterday evaluated by respiratory therapy, O2 sat of 88% post ambulation on 4 L nasal cannula. Patient will require oxygen and nebulized bronchodilators at discharge-currently being arranged by case management. Smoking cessation reinforced.Patient will be discharged today with home care in a stable condition with guarded prognosis, pending final DC recommendations and clearance per pulmonary. The impression and plan of care has been dictated as directed. : I performed a history and examination of this patient, discussed the same with the dictator. I agree with the dictator's note ,documented as a scribe. Any additional findings or plans will be noted. Patient Condition at Discharge: Stable Plan - Discharge Summary Discharge Rx Participant: Yes New Discharge Prescriptions: New Apixaban [Eliquis] 5 mg PO BID #60 tab predniSONE 10 mg PO DIRECTED #30 tab Acetaminophen Tab [Tylenol] 650 mg PO Q6HR PRN tab PRN Reason: Fever And/ Or Pain Atorvastatin [Lipitor] 40 mg PO HS #30 tab Metoprolol Succinate (ER) [Toprol XL] 12.5 mg PO BID #60 tab Budesonide-Formot 160-4.5 Mcg [Symbicort 160-4.5 Mcg Inhaler] 2 puff INHALATION BID #1 each Continue Losartan Potassium [Cozaar] 100 mg PO DAILY Discharge Medication List Losartan Potassium [Cozaar] 100 mg PO DAILY 04/26/24 [History] Apixaban [Eliquis] 5 mg PO BID #60 tab 05/11/24 [Rx] Atorvastatin [Lipitor] 40 mg PO HS #30 tab 05/11/24 [Rx] Budesonide-Formot 160-4.5 Mcg [Symbicort 160-4.5 Mcg Inhaler] 2 puff INHALATION BID #1 each 05/11/24 [Rx] Metoprolol Succinate (ER) [Toprol XL] 12.5 mg PO BID #60 tab 05/11/24 [Rx] predniSONE 10 mg PO DIRECTED #30 tab 05/11/24 [Rx] Acetaminophen Tab [Tylenol] 650 mg PO Q6HR PRN tab 05/12/24 [Rx] Follow up Appointment(s)/Referral(s): [facility] [Provider Group] - 1 Week Ra Posada DO [Primary Care Provider] - 3 Days Activity/Diet/Wound Care/Special Instructions: Case management/O2 for discharge. Confirm follow-up visit with pulmonary.
[2024-05-12 13:12] VITALS: BP 137/57; PULSE 54
--- NOTE | 2024-05-12 15:03 | P.PN ---
Subjective Progress Note Date: 05/12/24 Principal diagnosis: Acute hypoxic respiratory failure secondary to acute COPD exacerbation and acute influenza A infection 05/09/2024, patient is feeling somewhat improved. She remains on Airvo and on today's evaluation, she is on 4 L and FiO2 of 50%. Current pulse ox is 91%. Remains on bronchodilators. Remains on steroids. She remains on IV Solu-Medrol 40 mg every 8 hours. She remains on a combination performance of Pulmicort options. She is using the flutter valve. She is using the incentive spirometer. She was given diuretics over the past 24 hours and the patient's fluid balance is -3.1 L. She continues to produce excellent urine output. The white cell count is 13.6, hemoglobin 18.2 with a platelet count of 223. BUN 38 with a creatinine of 0.7. Sodium levels at 133. Denies having any specific complaints. On 05/10/2024, the patient's oxygenation is improved. The patient is currently off Airvo and she is maintained on 7 L of oxygen by nasal cannula. Feeling well. No specific complaints. She was diuresed adequately over the past 48 hours and the patient is in negative fluid balance. Diuretics have been discontinued. She continues to use incentive spirometer. She continues to use the flutter valve. She remains on bronchodilators and steroids. CT of the chest was done this morning that showed no evidence of any pulmonary embolism. The patient has small bilateral effusions and atelectasis in the lung bases right more than left. Awake and alert and communicating. Denies having any other new complaints for now. The patient is seen today May 11, 2024 in follow-up on the selective care unit. She is currently sitting up in bed. Awake and alert in no acute distress. Doing quite a bit better. She is down to oxygen at 4 L/min per nasal cannula. No worsening shortness of breath, cough or congestion. Glucose 208. Ofe on DuoNeb inhalations, Pulmicort and performance inhalations, Solu-Medrol. Anticoagulated with Eliquis. Seen today on 05/12/2024, patient is doing well, asymptomatic, hardly any pulmonary symptoms, remains on oxygen at 4 L she may need home O2. Remains on bronchodilators including Pulmicort Perforomist she is also on Solu-Medrol, patient is on DuoNeb and she is anticoagulated with Eliquis. Patient is feeling much better today and breathing a lot easier, hence I will clear the patient for discharge and follow-up on outpatient basis. Objective - Vital Signs Vital signs: Vital Signs Temp 97.8 F 05/12/24 04:00 Pulse 54 L 05/12/24 11:25 Resp 16 05/12/24 11:25 BP 137/57 05/12/24 11:25 Pulse Ox 93 L 05/12/24 11:25 FiO2 32 05/12/24 07:52 Intake & Output 05/11/24 05/12/24 05/12/24 18:59 06:59 18:59 Intake Total 540 180 Output Total 500 Balance 540 -500 180 Weight 77.5 kg 86.1 kg Intake: Oral 540 180 Output: Urine 500 Other: Voiding Method Bedside Commode Bedside Commode Bedside Commode # Voids 1 2 1 # Bowel Movements 1 - Exam GENERAL EXAM: Revealed 73-year-old female in no distress HEAD: Normocephalic. EYES: Normal reaction of pupils, equal size. NOSE: Clear with pink turbinates. THROAT: No erythema or exudates. NECK: No masses, no JVD. CHEST: No chest wall deformity. LUNGS: Clear bilaterally no rhonchi no wheezes CVS: S1 and S2 normal with no audible murmur, regular rhythm. ABDOMEN: No hepatosplenomegaly, normal bowel sounds, no guarding or rigidity. SPINE: No scoliosis or deformity SKIN: No rashes CENTRAL NERVOUS SYSTEM: Alert oriented x 3 no focal deficit s. EXTREMITIES: No clubbing edema or cyanosis - Labs CBC & Chem 7: 05/09/24 05:31 05/09/24 05:31 Labs: Abnormal Lab Results - Last 24 Hours (Table) 05/11/24 05/11/24 Range/Units 15:51 19:58 POC Glucose (mg/dL) 208 H 169 H (70-110) mg/dL Assessment and Plan Assessment: Impression: Acute hypoxic respiratory failure secondary to an acute exacerbation of chronic obstructive pulmonary disease complicated by influenza A. Procalcitonin negative. Acute influenza A infection Atrial fibrillation with rapid ventricular response, converted to sinus rhythm Acute non-ST segment elevation myocardial infarction, preserved LV function Chronic and ongoing tobacco dependence of greater than 40 years Chronic obstructive pulmonary disease, not on treatment in the outpatient setting Hypertension Plan: Agree with discharge planning Home O2 if the patient qualifies patient is on 4 L nasal cannula at this point Bronchodilators including DuoNeb, and Symbicort and prednisone burst and taper Follow-up on outpatient basis Time with Patient: Less than 30
== END 2024-05-12 13:23 | disposition home health service (06) | DRG 189 ==
LOC: EC 20:49 → 3SCARD 23:17
PROVIDERS: ADMIT Family Medicine; ATTEND Family Medicine
PROC: 5A09457 Assistance with Respiratory Ventilation, 24-96 Consecutive Hours, Continuous Positive Airway Pressure (ICD-10-PCS; principal; 2024-04-28)
PROC: 05HF33Z Insertion of Infusion Device into Left Cephalic Vein, Percutaneous Approach (ICD-10-PCS; 2024-05-06 08:30)
PROC: 05HD33Z Insertion of Infusion Device into Right Cephalic Vein, Percutaneous Approach (ICD-10-PCS; 2024-05-11)
DX: J96.01 Acute respiratory failure with hypoxia (principal); J10.00 Influenza due to other identified influenza virus with unspecified type of pneumonia; I21.A1 Myocardial infarction type 2; B37.0 Candidal stomatitis; D69.6 Thrombocytopenia, unspecified; J44.1 Chronic obstructive pulmonary disease with (acute) exacerbation; I48.20 Chronic atrial fibrillation, unspecified; J98.11 Atelectasis; Z68.31 Body mass index [BMI] 31.0-31.9, adult; I10 Essential (primary) hypertension; E66.3 Overweight; R32 Unspecified urinary incontinence; E78.5 Hyperlipidemia, unspecified; F17.200 Nicotine dependence, unspecified, uncomplicated; I45.10 Unspecified right bundle-branch block; Z78.9 Other specified health status; Z79.899 Other long term (current) drug therapy; Z88.5 Allergy status to narcotic agent
CPT/HCPCS: 36410; 36415; 36600; 70450; 70496; 70498; 71045; 71275; 76937; 80048; 80053; 80061; 81003; 82272; 82805; 83036; 83605; 83735; 83880; 84145; 84443; 84484; 85025; 85027; 85379; 85610; 85652; 85730; 86140; 87040; 87070; 87205; 87636; 93005; 93306; 94640; 94660; 94667; 94668; 94760; 96365; 96366; 96375; 99285